=== PATIENT | female | born 1955 | race Caucasian/White ===

== ENCOUNTER → 2016-07-07 | Outpatient (CLI) | payer OTHER ==
[~2016-07-07] MED LIST: ALPR.25 PO; B COTAB7 PO; B12-1CHW CHEW; BENZ100 PO; BIOT1SUB SL; BIOT5000 PO; CALC600T25; CALC600T34 PO; CYCL1TAB29 PO; DICL1GEL TOPICAL; DICL50 PO; ESTRA PO; GUAISYP7; IBUPPOW25 XX; IPRA17I INH; NUCY50TA9 PO; ULTR50TA PO; VITA10007 PO; VITA100L SUCK-ON; [UNRECOGNIZED DRUG - OTHER]; [UNRECOGNIZED DRUG - OTHER]
[2016-07-07 12:40] LABS: AUTOMATED NEUTROPHIL # 5.9 TH/MM3 (1.8-7.7); BASOPHIL % 0.4 % (0.0-2.0); EOSINOPHIL # 0.1 TH/MM3 (0-0.4); EOSINOPHIL % 0.7 % (0.0-4.0); HEMATOCRIT 35.3 % (35.0-46.0); HEMO FLAGS DIFF FINAL; LYMPH % 27.3 % (9.0-44.0); LYMPHOCYTE # 2.5 TH/MM3 (1.0-4.8); MEAN CELL VOLUME 86.8 FL (80.0-100.0); MEAN CORPUSCULAR HEMOGLOBIN 29.3 PG (27.0-34.0); MEAN CORPUSCULAR HGB CONC 33.8 % (32.0-36.0); NEUT % 64.6 % (16.0-70.0); PLATELET COUNT 318 TH/MM3 (150-450); RED BLOOD COUNT 4.07 MIL/MM3 (4.00-5.30); WHITE BLOOD COUNT 9.1 TH/MM3 (4.0-11.0)
[2016-07-07 12:41] LABS: APTT (PATIENT) 24.3 SEC (24.3-30.1); INTERNATIONAL NORMALIZED RATIO 0.9 RATIO; PROTHROMBIN TIME - PATIENT 10.1 SEC (9.8-11.6)
== END ==
LOC: CLAB 12:02
PROVIDERS: ATTEND Internal Medicine
DX: J18.9 Pneumonia, unspecified organism (principal); J90 Pleural effusion, not elsewhere classified; Z79.01 Long term (current) use of anticoagulants
CPT/HCPCS: 36415; 85025; 85610; 85730

== ENCOUNTER 2016-07-10 09:26 | Day surgery (SDC) | payer OTHER ==
--- NOTE | 2016-07-09 12:38 | MB ---
cc: MAHAMED JOHNSON RYAN R. M.D. WHITE, R. STEVEN DATE OF CONSULTATION 07/07/2016 REASON FOR CONSULTATION For diagnostic and therapeutic thoracentesis being scheduled at [facility]. HISTORY Ms. 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 She subsequently underwent chemotherapy with Dr. Johnson and CT scans have revealed no evidence of recurrent malignancy but she has a residual moderate effusion in that right lung. She is complaining of shortness of breath, although she has no chest pain, no hemoptysis, no fever. Appetite is good and there has been no weight loss. In light of the persistence of fluid, we are going to schedule that to be drained diagnostically and therapeutically. PAST MEDICAL HISTORY 1. Hysterectomy. 2. Cervical DJD. 3. No prior cardiovascular history. 4. COPD. 5. Former smoker 50 pack-years. MEDICATIONS 1. Nicotine patch. 2. Estrogen. 3. Calcium. 4. Vitamin D. 5. Biotin. 6. Zantac p.r.n. She is on no anticoagulants. SOCIAL HISTORY , living with her . Smoking noted to be 50 pack-years; quit smoking at the time of her surgery. 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 Drinks an occasional vodka. ALLERGIES DOLOBID. MORPHINE. CODEINE. DILAUDID. All of them cause hives. REVIEW OF SYSTEMS Other than that noted above, no swelling in her legs. No gastrointestinal symptoms. No diarrhea or reflux. She does get relief when she uses Atrovent inhalation. PHYSICAL EXAMINATION VITAL SIGNS: 96, 130/80, pulse 76, respiratory rate 18. Oxygen saturation 96% on room air. HEENT: Sclerae anicteric. Pharynx is clear. NECK: Neck veins are flat. No adenopathy in the neck or supraclavicular region. CHEST: Surgical scar is healing well. A little dullness to percussion on the right with decreased breath sounds, otherwise no wheezing or congestion. HEART: Regular heart rhythm. No harsh murmur. EXTREMITIES: No edema or cyanosis. ASSESSMENT AND PLAN Ms. Prather has a residual persistent effusion on the right after surgery last December for adenocarcinoma. She is also experiencing shortness of breath. We will schedule her for an ultrasound-guided thoracentesis, send fluid for analysis and hopefully by draining this fluid she will have less dyspnea as well. R. MD CHARLEEN Fragoso/JASON /11:49 AM /12:28 PM
[~2016-07-10 09:26] MED LIST changes: -B12-1CHW CHEW; -BIOT1SUB SL; -CALC600T25; -CYCL1TAB29 PO; -DICL1GEL TOPICAL; -VITA10007 PO
[2016-07-10 10:13] VITALS: BP 156/96; PULSE 84; RESP 22; TEMP 98; O2SAT 98
[2016-07-10 10:35] VITALS: BP 141/79; PULSE 79; RESP 20; O2SAT 98
[2016-07-10 10:50] VITALS: BP 147/89; PULSE 80; RESP 20; O2SAT 96
--- NOTE | 2016-07-10 11:02 | RADRPT ---
EXAM DATE/TIME: 07/10/2016 10:46 [facility] COMPARISON: No previous studies available for comparison. INDICATIONS : Post right thoracentesis. MEDICAL HISTORY : Carcinoma, lung. A-fib. Smoker. SURGICAL HISTORY : Port placement. ENCOUNTER: Initial ACUITY: 1 day PAIN SCORE: 0/10 LOCATION: Right chest FINDINGS: Status post right thoracentesis. No evidence of pneumothorax. There is some focal consolidation the r ight lung base. The left lung is clear. The heart size is within normal limits. Right central line in place. CONCLUSION: Status post right thoracentesis. No pneumothorax. Juventino Johnston MD on July 10, 2016 at 11:00 Board Certified Radiologist. This report was verified electronically.
--- NOTE | 2016-07-10 11:56 | RADRPT ---
EXAM DATE/TIME: 07/10/2016 10:12 [facility] COMPARISON: No previous studies available for comparison. EXTERNAL COMPARISON: [facility], CT THORAX, W CONTRAST, Jul [address] THORAX, W/O CONTRAST, April 02, 2016. C HEST- PA & LAT, February 06, 2016. CHEST- PA & LAT, October 22, 2015. [facility] - CT THORAX, W & W/O CONTRAST, October 24, 2015. INDICATIONS : Right pleural effusion. MEDICAL HISTORY : Atrial fibrillation. Metestatic right lung cancer. SURGICAL HISTORY : Hysterectomy. Appendectomy. Tonsillectomy. Bilateral oophorectomy. Right lung lobectomy. ENCOUNTER: Initial ACUITY: 1 day PAIN SCORE: 0/10 LOCATION: Right chest FLUID: Total volume of 300 cc of clear, yellow fluid was removed. Fluid was sent to lab for ordered studies. TECHNIQUE: 1. Ultrasound guidance for thoracentesis. 2. Thoracentesis. The risks, benefits, and alternatives to ultrasound guided thoracentesis were explained to the patien t in lay simple terms, including the risk of bleeding and infection. Written and verbal informed con sent was obtained. Appropriate area for thoracentesis was marked under ultrasound guidance with the patient in the uprig ht position. Overlying skin was prepped and draped in the usual sterile fashion and with local anest hetic, a dermatotomy was made with an 11 blade scalpel. A 6 Chadian thoracentesis catheter was placed in the pleural space and fluid was removed. Catheter was then removed and a sterile dressing applie d. There were no immediate complications. The patient tolerated the procedure well and the left the ultrasound suite in stable condition. Chest radiograph is to be obtained. CONCLUSION: Uncomplicated ultrasound guided thoracentesis. Oswald Rodriguez MD FACR on July 10, 2016 at 11:54 Board Certified Radiologist. This report was verified electronically.
[2016-07-10 12:06] LABS: TOTAL PROTEIN,PLEURAL FLUID 3.5 GM/DL
[2016-07-10 13:50] LABS: PLEURAL FLUID LYMPHS 64 %
== END 2016-07-10 11:30 | disposition home or self-care (01) ==
LOC: HRIP 09:26 → HRAD 09:26
PROVIDERS: ATTEND Internal Medicine
DX: J90 Pleural effusion, not elsewhere classified (principal); I48.91 Unspecified atrial fibrillation; Z85.118 Personal history of other malignant neoplasm of bronchus and lung
CPT/HCPCS: 32555; 71010; 82945; 83615; 84157; 87015; 87070; 87116; 87205; 87206; 89051; C1729

== ENCOUNTER → 2016-08-24 | Outpatient (CLI) | payer OTHER ==
[~2016-08-24] MED LIST changes: +B12-1CHW CHEW; +BIOT1SUB SL; +CALC600T25; +CYCL1TAB29 PO; +DICL1GEL TOPICAL; +VITA10007 PO
[2016-08-24 08:50] LABS: AUTOMATED NEUTROPHIL # 2.9 TH/MM3 (1.8-7.7); BASOPHIL # 0.1 TH/MM3 (0-0.2); BASOPHIL % 0.8 % (0.0-2.0); EOSINOPHIL # 0.2 TH/MM3 (0-0.4); EOSINOPHIL % 3.1 % (0.0-4.0); HEMATOCRIT 36.7 % (35.0-46.0); HEMO FLAGS DIFF FINAL; LYMPH % 43.3 % (9.0-44.0); LYMPHOCYTE # 2.8 TH/MM3 (1.0-4.8); MEAN CELL VOLUME 86.9 FL (80.0-100.0); MEAN CORPUSCULAR HEMOGLOBIN 29.8 PG (27.0-34.0); MEAN CORPUSCULAR HGB CONC 34.3 % (32.0-36.0); MONO % 8.1 % (0.0-8.0); NEUT % 44.7 % (16.0-70.0); PLATELET COUNT 318 TH/MM3 (150-450); RED BLOOD COUNT 4.22 MIL/MM3 (4.00-5.30); RED CELL DISTRIBUTION WIDTH 14.1 % (11.6-17.2); WHITE BLOOD COUNT 6.6 TH/MM3 (4.0-11.0)
[2016-08-24 09:03] LABS: APTT (PATIENT) 25.3 SEC (24.3-30.1); PROTHROMBIN TIME - PATIENT 10.6 SEC (9.8-11.6)
== END ==
LOC: CLAB 08:18
PROVIDERS: ATTEND Internal Medicine Hematology & Oncology
DX: C34.90 Malignant neoplasm of unspecified part of unspecified bronchus or lung (principal)
CPT/HCPCS: 36415; 85025; 85610; 85730

== ENCOUNTER 2016-08-25 06:07 | Day surgery (SDC) | payer OTHER ==
[~2016-08-25] VITALS: Ht 188 cm; Wt 83.2 kg
[~2016-08-25 06:07] MED LIST changes: -B12-1CHW CHEW; -BIOT1SUB SL; -CALC600T25; -CYCL1TAB29 PO; -DICL1GEL TOPICAL; -VITA10007 PO
[2016-08-25] MEDS ORDERED: CYCL1TAB29 PO (06:57)
[2016-08-25] MEDS ORDERED: IPRA17I INH (06:57)
[2016-08-25] MEDS ORDERED: ALPR.25 PO (06:57)
[2016-08-25] MEDS ORDERED: VITA10007 PO (06:57)
[2016-08-25] MEDS ORDERED: B12-1CHW CHEW (06:57)
[2016-08-25] MEDS ORDERED: DICL1GEL TOPICAL (06:57)
[2016-08-25] MEDS ORDERED: BIOT1SUB SL (06:57)
[2016-08-25] MEDS ORDERED: CALC600T25 (06:57)
[2016-08-25] MEDS ORDERED: NUCY50TA9 PO (06:57)
[2016-08-25] MEDS ORDERED: ceFAZolin 2 GM PREMIX 50 ML - implanted port removal IV SCH (07:00)
[2016-08-25] MEDS ORDERED: SODIUM CHLORIDE 0.9% 1000 ML IV SCH (07:00)
[2016-08-25] MEDS ORDERED: LIDOCAINE 1%/EPINEPHrine 1:100,000 SOLN 20 ML VIAL ONE (07:59)
[2016-08-25] MEDS ORDERED: LORazepam 2 MG/ML VIAL ONE (08:15)
--- NOTE | 2016-08-25 08:31 | PD.RAD ---
Post Procedure Progress Note Pre Procedure Diagnosis: (1) Right thoracotomy, middle and lower lobe resection en bloc with pericardium and left atrial margin, Post Procedure Diagnosis: (1) Right thoracotomy, middle and lower lobe resection en bloc with pericardium and left atrial margin, Procedure Date: Aug 25, 2016 Supervising Radiologist: Marko Lowery Proceduralist/Assist: Melinda Arredondo, RT(R)(CV), Aditi Purvis, RT(R) Anesthesia: Local, Conscious Sedation Plan of Activity Patient to Unit: ROPU Patient Condition: Good See PACS Report for procedural detail/treatment Central Venous Access Device Procedure 1 Right Internal Jugular Infusaport Removal single lumen Marko Lowery MD Aug 25, 2016 08:31
[2016-08-25 08:35] VITALS: BP 155/74; PULSE 69; RESP 18; TEMP 97.7; O2SAT 96
[2016-08-25 08:45] VITALS: BP 132/70; PULSE 69; RESP 18; O2SAT 98
[2016-08-25 09:35] VITALS: BP 142/75; PULSE 69; RESP 16; O2SAT 96
--- NOTE | 2016-08-25 10:23 | RADRPT ---
EXAM DATE/TIME: 08/25/2016 00:00 [facility] COMPARISON: No previous studies available for comparison. INDICATIONS : Patient with history of lung cancer. Chemotherapy finished. MEDICAL HISTORY : 1. Lung ca 2. Right pleural effusion 3. right hilar mass 4. COPD SURGICAL HISTORY : 1. right port placed 2. thorocotomy 3. Hysterectomy 4. Appendectomy ENCOUNTER: Initial ACUITY: 1 week PAIN SCORE: 0/10 1.) 1 mg lorazepam (Ativan) IV Prophylactic antibiotics were administered with appropriate pre-procedure timing. Vancomycin within 2 hrs of procedure, Ancef (or alternative) within 1 hr of procedure. PROCEDURE : 1. Removal of Ozwdpz-r-pkyj. 2. Conscious sedation with continuous EKG and oximetry monitoring. The risk, benefits and potential complications of Etywcj-p-Kzmd removal were discussed. Written conse nt was obtained. The patient was placed supine. The chest wall was prepped in sterile fashion. Full sterile techniqu e was used, including cap, mask, sterile gloves and gown, and a large sterile sheet. Hand hygiene an d 2% chlorhexidine and/or Betadine/alcohol prep was utilized per protocol for cutaneous antisepsis. The skin and subcutaneous tissues were infiltrated with local anesthetic solution. A small incision w as made, the subcutaneous pocket was opened. The port was dissected from the subcutaneous tissues and easily removed in one piece. The pocket incision was closed with subcuticular Vicryl suture. Steri -Strips were applied. Conscious sedation was performed with the prescribed dosages and duration as above in the presence of an independent trained radiology nurse to assist in the monitoring of the patient. EKG and oximetry remained stable throughout the procedure. The patient tolerated the procedure well and there were no complications. The patient was sent to post anesthesia recovery in stable condition. CONCLUSION: Uncomplicated port removal as above. Marko Lowery MD on August 25, 2016 at 10:21 Board Certified Radiologist. This report was verified electronically.
== END 2016-08-25 09:54 | disposition home or self-care (01) ==
LOC: HROP 06:07 → HRIP 06:17 → HROP 09:54
PROVIDERS: ATTEND Internal Medicine Hematology & Oncology
DX: Z45.2 Encounter for adjustment and management of vascular access device (principal); C34.91 Malignant neoplasm of unspecified part of right bronchus or lung
CPT/HCPCS: 36590; J2060

== ENCOUNTER 2017-04-22 12:55 | Day surgery (SDC) | payer OTHER ==
[~2017-04-22 12:55] MED LIST changes: +B12-1CHW CHEW; +BIOT1SUB SL; +CALC600T5; +CYCL10TA PO; +DICL1GEL TOPICAL; +NUCY50TA10 PO; +VITA10007 PO
[2017-04-22] MEDS ORDERED: IOHEXOL 300 MG/ML 50 ML BTL (for RAD DIAG) OTHER ONE (12:56)
[2017-04-22 13:10] VITALS: BP 171/105; PULSE 81; RESP 20; TEMP 97.5; O2SAT 95
[2017-04-22] MEDS ORDERED: BENZ100 PO (13:32)
[2017-04-22] MEDS ORDERED: CALC1TAB87 PO (13:32)
[2017-04-22] MEDS ORDERED: EEMTTAB2 PO (13:32)
[2017-04-22] MEDS ORDERED: GUAISYP5 PO (13:32)
[2017-04-22] MEDS ORDERED: TRAM50TA PO (13:32)
[2017-04-22] MEDS ORDERED: CYAN100025 SL (13:32)
[2017-04-22] MEDS ORDERED: VITA500T83 PO (13:32)
[2017-04-22] MEDS ORDERED: OCUVTAB PO (13:32)
[2017-04-22] MEDS ORDERED: VITACAP7 PO (13:32)
[2017-04-22] MEDS ORDERED: IBUP1TAB7 PO (13:32)
[2017-04-22] MEDS ORDERED: RANI1TAB7 PO (13:32)
[2017-04-22] MEDS ORDERED: BIOTCAP PO (13:32)
[2017-04-22] MEDS ORDERED: TRIAMCINOLONE ACETONIDE 40 MG/ML VIAL ONE (13:34)
[2017-04-22 14:12] VITALS: BP 155/97; PULSE 66; RESP 18; TEMP 97.7; O2SAT 97
--- NOTE | 2017-04-22 16:20 | RADRPT ---
EXAM DATE/TIME: 04/22/2017 13:29 [facility] COMPARISON: No previous studies available for comparison. INDICATIONS : Patient with lumbar radiculopathy in need of nerve root injection. MEDICAL HISTORY : A-Fib, COPD, Heart valve disease, Right lung adenocarcinoma, Pleural effusion, Pneumothorax SURGICAL HISTORY : Right thoracotomy and right middle and lower lobe resection, Chest tube placement, Right thoracentesi s ENCOUNTER: Initial ACUITY: >1 year PAIN SCORE: 7/10 LOCATION: Left buttock FLUORO TIME: 3.8 minutes IMAGE SERIES: 2 CONTRAST: 1 cc Omnipaque (iohexol) 300 ACCESS LEVEL: Left L5 MEDICATIONS: 1.) 1 cc triamcinolone (Kenalog) IA 2.) 1 cc Lidocaine IA RESPONSE: Pre procedure pain level was 7/10. Post procedure pain level was 3/10. PROCEDURE : 1. Fluoroscopically guided nerve root injection. The risks, benefits and alternatives to the procedure were explained and verbal and written consent w as obtained. The site was prepped in sterile fashion. Full sterile technique was used, including ca p, mask, sterile gloves and gown and a large sterile sheet. Hand hygiene and 2% chlorhexidine and/or betadine/alcohol prep was utilized per protocol for cutaneous antisepsis. The skin and subcutaneous tissues were infiltrated with local anesthetic solution. With fluoroscopic guidance the targeted nerve root was localized and positive contrast was injected t o confirm epidural spread. Following this the prescribed medication was injected surrounding the ner ve root sleeve. The patient's preprocedure pain and post procedure pain levels were recorded. CONCLUSION: Uncomplicated fluoroscopically guided nerve root injection as above. Scot Lovelace MD on April 22, 2017 at 16:18 Board Certified Radiologist. This report was verified electronically.
--- NOTE | 2017-04-22 16:21 | RADRPT ---
EXAM DATE/TIME: 04/22/2017 13:29 [facility] COMPARISON: No previous studies available for comparison. INDICATIONS : Patient with lumbar radiculopathy in need of nerve root injection. MEDICAL HISTORY : A-Fib, COPD, Heart valve disease, Right lung adenocarcinoma, Pleural effusion, Pneumothorax SURGICAL HISTORY : Right thoracotomy and right middle and lower lobe resection, Chest tube placement, Right thoracentesi s ENCOUNTER: Initial ACUITY: 1 year PAIN SCORE: 7/10 LOCATION: Left buttock FLUORO TIME: 3.8 minutes IMAGE SERIES: 2 CONTRAST: 1 cc Omnipaque (iohexol) 300 ACCESS LEVEL: Left S1 MEDICATIONS: 1.) 1 cc triamcinolone (Kenalog) IA 2.) 1 cc Lidocaine IA RESPONSE: Pre procedure pain level was 7/10. Post procedure pain level was 3/10. PROCEDURE : 1. Fluoroscopically guided nerve root injection. The risks, benefits and alternatives to the procedure were explained and verbal and written consent w as obtained. The site was prepped in sterile fashion. Full sterile technique was used, including ca p, mask, sterile gloves and gown and a large sterile sheet. Hand hygiene and 2% chlorhexidine and/or betadine/alcohol prep was utilized per protocol for cutaneous antisepsis. The skin and subcutaneous tissues were infiltrated with local anesthetic solution. With fluoroscopic guidance the targeted nerve root was localized and positive contrast was injected t o confirm epidural spread. Following this the prescribed medication was injected surrounding the ner ve root sleeve. The patient's preprocedure pain and post procedure pain levels were recorded. CONCLUSION: Uncomplicated fluoroscopically guided nerve root injection as above. Scot Lovelace MD on April 22, 2017 at 16:18 Board Certified Radiologist. This report was verified electronically.
== END 2017-04-22 15:00 | disposition home or self-care (01) ==
LOC: HROP 12:55 → HRIP 13:01 → HROP 15:00
PROVIDERS: ATTEND Radiology Body Imaging
DX: M54.16 Radiculopathy, lumbar region (principal); J44.9 Chronic obstructive pulmonary disease, unspecified; J90 Pleural effusion, not elsewhere classified; I48.91 Unspecified atrial fibrillation
CPT/HCPCS: 64483; 64484; J3301; Q9967

== ENCOUNTER → 2017-06-15 | Outpatient (CLI) | payer OTHER ==
[~2017-06-15] MED LIST changes: -B COTAB7 PO; -B12-1CHW CHEW; -BIOT1SUB SL; -BIOT5000 PO; +BIOTCAP PO; +CALC1TAB87 PO; -CALC600T34 PO; -CALC600T5; +CYAN100025 SL; -DICL1GEL TOPICAL; -DICL50 PO; +EEMTTAB2 PO; -ESTRA PO; +GUAISYP5 PO; -GUAISYP7; +IBUP1TAB7 PO; -IBUPPOW25 XX; -NUCY50TA9 PO; +OCUVTAB PO; +RANI1TAB7 PO; +TRAM50TA PO; -ULTR50TA PO; +UMEC1AER INH; -VITA10007 PO; -VITA100L SUCK-ON; +VITA500T83 PO; +VITACAP7 PO; -[UNRECOGNIZED DRUG - OTHER]; -[UNRECOGNIZED DRUG - OTHER]
[2017-06-15 10:41] LABS: BILIRUBIN, URINE NEG (NEG); BLOOD, URINE NEG (NEG); GLUCOSE,URINE NEG (NEG); KETONE, URINE NEG (NEG); NITRITE,URINE NEG (NEG); PH, URINE 6.5 (5.0-8.5); URINE COLOR YELLOW (YELLW/STRAW); URINE LEUKOCYTE ESTERASE NEG (NEG)
[2017-06-15 10:48] LABS: PROTHROMBIN TIME - PATIENT 9.8 SEC (9.8-11.6)
[2017-06-15 10:58] LABS: CALCIUM 9.8 MG/DL (8.5-10.1); CREATININE 0.74 MG/DL (0.50-1.00)
[2017-06-15 10:59] LABS: BASOPHIL % 0.5 % (0.0-2.0); EOSINOPHIL # 0.1 TH/MM3 (0-0.4); EOSINOPHIL % 1.3 % (0.0-4.0); HEMATOCRIT 36.5 % (35.0-46.0); HEMOGLOBIN 12.5 GM/DL (11.6-15.3); LYMPH % 34.5 % (9.0-44.0); LYMPHOCYTE # 3.2 TH/MM3 (1.0-4.8); MEAN CELL VOLUME 89.9 FL (80.0-100.0); MEAN CORPUSCULAR HEMOGLOBIN 30.8 PG (27.0-34.0); MEAN CORPUSCULAR HGB CONC 34.2 % (32.0-36.0); MONO % 9.1 % (0.0-8.0); MONOCYTE # 0.8 TH/MM3 (0-0.9); NEUT % 54.6 % (16.0-70.0); PLATELET COUNT 404 TH/MM3 (150-450); RED BLOOD COUNT 4.06 MIL/MM3 (4.00-5.30); RED CELL DISTRIBUTION WIDTH 13.7 % (11.6-17.2); WHITE BLOOD COUNT 9.2 TH/MM3 (4.0-11.0)
--- NOTE | 2017-06-16 00:15 | EKG ---
Date Performed: 06/15/2017 Time Performed: 10:17:34 PTAGE: 62 years EKG: Sinus rhythm ST junctional depression is nonspecific Borderline ECG PREVIOUS TRACING : 11/26/2015 09.05 Since the prior tracing, there has been no significant richards DOCTOR: Leonel Chapman Interpretating Date/Time 06/16/2017 00:14:16
== END ==
LOC: CPRE 09:56
PROVIDERS: ATTEND Orthopaedic Surgery Orthopaedic Surgery of the Spine
DX: Z01.812 Encounter for preprocedural laboratory examination (principal); Z01.810 Encounter for preprocedural cardiovascular examination; M48.08 Spinal stenosis, sacral and sacrococcygeal region; M96.1 Postlaminectomy syndrome, not elsewhere classified
CPT/HCPCS: 36415; 80048; 81001; 85025; 85610; 85730; 93005

== ENCOUNTER 2017-06-29 07:19 | Inpatient (IN) | payer OTHER ==
[~2017-06-29] VITALS: Ht 182.9 cm; Wt 86.3 kg
[2017-06-29] MEDS ORDERED: CHLORHEXIDINE GLUCONATE 2 % 1 PACK (2 CLOTHS) TOPICAL PRN (07:45)
[2017-06-29] MEDS ORDERED: VANCOMYCIN 1000 MG/NS 250 ML (for <70 kg) IV SCH ×2 (07:45)
[2017-06-29] MEDS ORDERED: POVIDONE IODINE 5% (ANTISEPSIS KIT) 4 APPLICATIONS EACH NARE PRN (07:45)
[2017-06-29] MEDS ORDERED: SODIUM CHLORID 0.9% 500 ML IV PRN (07:45)
[2017-06-29] MEDS ORDERED: LACTATED RINGER'S 1000 ML IV PRN (07:45)
[2017-06-29] MEDS ORDERED: ceFAZolin 2 GM PREMIX 50 ML IV SCH (07:45)
[2017-06-29] MEDS ORDERED: METOPROLOL TARTRATE 25 MG TAB PO PRN (07:45)
[2017-06-29] MEDS ORDERED: CHLORHEXIDINE GLUCONATE 4% SOLN 120 ML BTL TOPICAL SCH (07:45)
[2017-06-29] MEDS ORDERED: LISI20TA3 PO (08:03)
[2017-06-29] MEDS ORDERED: GENTAMICIN SULFATE 80 MG/2 ML VIAL ONE (10:19)
[2017-06-29] MEDS ORDERED: ROCURONIUM INJ 50 MG/5 ML SYRINGE IV PUSH ONE (12:00)
[2017-06-29] MEDS ORDERED: DEXAMETHASONE SOD PHOS 4 MG/ML VIAL IV ONE (12:00)
[2017-06-29] MEDS ORDERED: PROPOFOL 200 MG/20 ML AMP IV ONE (12:00)
[2017-06-29] MEDS ORDERED: ePHEDrine/NS 25 MG/5 ML SYRINGE IV ONE (12:00)
[2017-06-29] MEDS ORDERED: ONDANSETRON HCL 4 MG/2 ML VIAL IV ONE (12:00)
[2017-06-29] MEDS ORDERED: LIDOCAINE HCL 1% PF 5 ML SYRINGE OTHER ONE (12:00)
[2017-06-29] MEDS ORDERED: LACTATED RINGER'S 1000 ML INJ 3,000 ML IV ONE (12:00)
[2017-06-29] MEDS ORDERED: PHENYLEPH/NS 1000 MCG/10 ML SYR IV ONE (12:00)
[2017-06-29] MEDS ORDERED: traMADol HCL 50 MG TAB PO PRN (12:30)
[2017-06-29] MEDS ORDERED: TAPENTADOL 50 MG PO PRN (12:30)
[2017-06-29] MEDS ORDERED: BISACODYL 10 MG SUPP RECTAL PRN (12:30)
[2017-06-29] MEDS ORDERED: TRAM50 PO (12:35)
[2017-06-29] MEDS ORDERED: ACETAMINOPHEN 1000 MG/100 ML 100 ML IV ONE (13:16)
[2017-06-29] MEDS ORDERED: VANCOMYCIN HCL 1000 MG VIAL ONE (15:27)
--- NOTE | 2017-06-29 15:49 | PD.OP ---
cc: Patrick Polo. Operative Report Date of Surgery: Jun 29, 2017 Preoperative Diagnosis: Lumbar spinal stenosis L4 5 and L5-S1. Degenerative disc disease lumbar spine. Lumbar instability. Left greater than right lumbosacral radiculopathy Postoperative Diagnosis: Same Procedure: Bilateral lumbar laminectomy L4 5 from the left with bilateral lateral recess decompression. Subtotal facet resection left L5-S1 with foraminal decompression exiting left L5 nerve root and lumbar laminectomy with decompression crossing left S1 nerve root and Posterior spinal fusion L4 to S1, lateral transverse process technique. Posterior spinal segmental his dictation, L4 to S1. Posterior lateral interbody fusion, L4 5 and L5-S1. Placement of interbody cages L4 5 and L5-S1. Major bone grafting of the lumbar spine Anesthesia: Gen. Surgeon: Patrick Polo Mobility Architect(s): ANA MARÍA Crawley Operation and Findings: EBL: 150 ml NOTE: Alexandra Crawley PA-C was present for the entire surgical procedure as my pediatric medical assistant. In my medical opinion her skill and care was necessary for proper management of this patient INDICATIONS: This patient is a 62-year-old female with significant bilateral leg pain, left greater than right. Investigative studies shows evidence of severe spinal stenosis at L4 5 and severe foraminal stenosis left L5-S1. Significant instability will be created with subtotal facet resection for purposes of decompressing the exiting left L5 nerve root. There is significant discogenic changes at the L4 5 level. The patient presents for decompression and fusion at both levels INSTRUMENTATION: Spine way PROCEDURE: The patient brought to the operating room and anesthetized the supine position. The patient positioned prone on the Clark frame on the Dionisio table. All pressure points are protected. The back was scrubbed with alcohol followed by Hibiclens followed by ChloraPrep and draped sterilely and antibiotics were given within a routine time window. A timeout was done. Lateral radiographic images used to identify the proper level for the procedure. Compared care for the preoperative studies. Skin markings were made anticipating surgical treatment. A left paramedian incision was made. The lamina and facet joint was exposed. We used a dilating retractor which was positioned over this region. The microscope was rolled into the field for visualization. A high-speed bur was used to take the lamina down and doing a subtotal facet resection. A bilateral laminectomy from the left side was accomplished with a bilateral lateral recess decompression. The exiting and crossing nerve roots were completely decompressed. A total discectomy was accomplished. The disc space was prepared. All cartilaginous material from the disc space was removed. A combination of demineralized bone matrix and Nucel stem cells were mixed together on the back table.. These were injected into the disc space. The cage was then placed according to mash processing operator's recommendation and deployed. Position was satisfactory. Additional bone graft was placed into the disc space. We moved to the L5-S1 level. A separate fascial incision was made. A dilating system was placed down to the interlaminar space and held provisionally to the side of the table. The microscope was brought back into the field. A high- speed bur under the microscope was used to perform a left-sided laminectomy from that side with a subtotal facet resection decompressing the exiting L5 and crossing S1 nerve roots. There was severe nerve root compression upon the left L5 nerve root in the foramen disc herniation into the foramen. A lateral recess decompression bilaterally was accomplished using straight and angled Kerrison punches. A subtotal facet resection section was accomplished The crossing and exiting nerve roots were completely decompressed. A total discectomy was accomplished. All cartilage was curetted. A combination of demineralized bone matrix and Nucel stem cells were injected into the disc space followed by placement of a Stax cage which was deployed and positioned according to mash processing operator's recommendation. The outer edge of the facet joint was identified and prepared. Under fluoroscopic images, a bur was used to gain entrance into the pedicle followed by placement of a blunt probe, an awl and placement of proper length screws bilaterally at L4, L5 and S1. Each screw was charged with electric current there are no abnormal potentials registered in either lower extremity. Percutaneous rods were utilized. A proper length fina was fitted and attached and tightened according to mash processing operator's recommendation. The wound was irrigated copiously. Bone grafting was placed along the lateral gutter in the region of the transverse process across this level. This was closed in layers with #1 Vicryl, 2-0 Vicryl and running intradermal 3-0 Vicryl followed by Steri-Strips and benzoin. On the contralateral side a separate exposure was made. The outer edge of the facet joints were identified. A bur was used to gain entrance into the pedicle followed by placement of a probe and proper length screws. Each screw was charged with electric current and no abnormal potentials registered in either lower extremity. The wound was irrigated copiously. Bone graft placed along the transverse process across this level. It was closed in layers using #1 Vicryl, 2-0 Vicryl and running intradermal 3-0 Vicryl followed by Steri-Strips and benzoin. Intraoperative radiographs were obtained. No complication was appreciated. The patient had a sterile dressing applied. The patient was awakened and taken to recovery room in satisfactory condition. FINDINGS: There was severe spinal stenosis at the L4 5 level. There was severe foraminal stenosis to left L5-S1. At the L5-S1 level was very unstable. There was a disc herniation into the foramen to the left L5-S1 contributing to left L5 nerve root compromise. No complication was appreciated. Patrick Polo MD Jun 29, 2017 15:48
[2017-06-29] MEDS ORDERED: DO NOT ADM ANY ANTICOAGULANT DRUGS PRN (16:20)
[2017-06-29] MEDS ORDERED: MEPERIDINE HCL 25 MG/ML VIAL ONE (17:01)
--- NOTE | 2017-06-29 17:06 | RADRPT ---
EXAM DATE/TIME: 06/29/2017 15:29 [facility] COMPARISON: No previous studies available for comparison. INDICATIONS : L4-5, L5-S1 Fusion. MEDICAL HISTORY : Carcinoma, lung. Smoker. A-fib. SURGICAL HISTORY : Hysterectomy. Tonsillectomy. ENCOUNTER: Initial ACUITY: 1 day PAIN SCORE: Non-responsive. LOCATION: Lumbar spine. FINDINGS: Two view, intraoperative examination was performed. Targeted views of the lumbosacral junction show 3 level transpedicular posterior fixation bilaterally from L4-S1 with intervertebral disc prostheses. Hardware is all intact. Vertebral body heights are maintained without fracture.. CONCLUSION: Appropriate postoperative appearance of the lumbosacral junction status post 3 level transpedicu lar fixation from L4-S1. Douglas Bartlett MD on June 29, 2017 at 17:03 Board Certified Radiologist. This report was verified electronically.
[2017-06-29] MEDS ORDERED: ALUMINUM/MAGNESIUM/SIMETH 30 ML CUP PO PRN (17:30)
[2017-06-29] MEDS ORDERED: CYCLOBENZAPRINE HCL 10 MG TAB PO PRN (17:30)
[2017-06-29] MEDS ORDERED: ONDANSETRON HCL 4 MG/2 ML VIAL IV PUSH PRN (17:30)
[2017-06-29] MEDS ORDERED: LACTATED RINGER'S 1000 ML INJ 1,000 ML IV SCH (17:30)
[2017-06-29] MEDS ORDERED: ALPRAZolam 0.25 MG TAB PO PRN (17:30)
[2017-06-29] MEDS ORDERED: BENZONATATE 100 MG CAP PO PRN (17:30)
[2017-06-29] MEDS ORDERED: RESP: IPRATROPIUM 0.5 MG/2.5 ML NEB INH PRN (18:00)
[2017-06-29] MEDS ORDERED: Post-op Orders (for Pharmacy) XX ONE (18:00)
[2017-06-29] MEDS ORDERED: KETOROLAC TROMETHAMINE 30 MG/ML (IVP) VIAL ONE (18:41)
[2017-06-29] MEDS ORDERED: KETOROLAC TROMETHAMINE 30 MG/ML (IVP) VIAL IV PUSH ONE (20:00)
[2017-06-29 20:30] VITALS: BP 102/57; PULSE 75; RESP 17; TEMP 96.8; O2SAT 97
[2017-06-29] MEDS ORDERED: RANITIDINE 150 MG PO SCH (21:00)
[2017-06-29] MEDS ORDERED: ZOLPIDEM TARTRATE 5 MG TAB PO PRN (21:00)
[2017-06-29] MEDS ORDERED: NON-FORMULARY DRUG (Lisinopril-Hctz 1 TAB) PO SCH (21:00)
[2017-06-29] MEDS: FAMOTIDINE 20 MG TAB PO SCH (21:52)
[2017-06-30 00:05] VITALS: BP 140/65; PULSE 79; RESP 18; TEMP 96.9; O2SAT 94
[2017-06-30] MEDS: traMADol HCL 50 MG TAB PO PRN ×2 (02:32→06:26)
[2017-06-30 04:05] VITALS: BP 105/58; PULSE 79; RESP 18; TEMP 97; O2SAT 98
[2017-06-30 08:00] VITALS: BP 101/53; PULSE 79; RESP 17; TEMP 96.1; O2SAT 99
[2017-06-30] MEDS: FAMOTIDINE 20 MG TAB PO SCH (08:42)
[2017-06-30] MEDS ORDERED: ESTROGEN ESTERIF/ME TESTOST 0.625 MG/1.25 MG TAB PO SCH (09:00)
[2017-06-30] MEDS ORDERED: HYDROCHLOROTHIAZIDE 25 MG TAB PO SCH (09:00)
[2017-06-30] MEDS ORDERED: UMECLIDINIUM 62.5 MCG/VILANTEROL 25 MCG INHALER INH SCH (09:00)
[2017-06-30] MEDS ORDERED: LISINOPRIL 20 MG TAB PO SCH (09:00)
[2017-06-30 10:16] LABS: HEMATOCRIT 30.7 % (35.0-46.0); HEMOGLOBIN 10.6 GM/DL (11.6-15.3)
[2017-06-30 12:00] VITALS: BP 108/59; PULSE 77; RESP 17; TEMP 95.9; O2SAT 98
[2017-06-30] MEDS ORDERED: WALKER WHEELS/F1 MIS (13:25)
[2017-06-30] MEDS ORDERED: COMMODE 3-IN-11 MIS (13:26)
--- NOTE | 2017-06-30 13:26 | HHI.DCPOC ---
Discharge Care Plan Diagnosis: (1) Lumbar spinal stenosis (2) Lumbar spine instability Your Health Problems Are: Difficulty with ADL Incision/Drains Inflammation Goals to Promote Your Health * To prevent worsening of your condition and complications * To maintain your health at the optimal level Directions to Meet Your Goals Take your medications as prescribed Follow your dietary instruction Follow activity as directed Keep your appointments as scheduled Take your immunizations and boosters as scheduled If your symptoms worsen call your PCP, if no PCP go to Urgent Care Center or Emergency Room Smoking is Dangerous to Your Health. Avoid second hand smoke Call the 24-hour hour crisis hotline for domestic abuse at Erin Thomas Jun 30, 2017 13:26
--- NOTE | 2017-06-30 13:27 | HHI.DS ---
Discharge Summary Admission Date Jun 29, 2017 at 07:19 Discharge Date: Jun 30, 2017 Admitting Diagnosis see below Diagnosis: (1) Lumbar spinal stenosis Diagnosis: Principal ICD Codes: M48.061 - Spinal stenosis, lumbar region without neurogenic claudication (2) Lumbar spine instability Diagnosis: Principal ICD Codes: M53.2X6 - Spinal instabilities, lumbar region Procedures Bilateral Lami L45 from left, Lami L5S1, subtotal facet resections, Posterior fusion L4-S1, bone graft. Brief History This is a 62 year old female patient CBC/BMP: 06/30/17 0820 Significant Findings Laboratory Tests Test 06/30/17 08:20 Hemoglobin 10.6 GM/DL (11.6-15.3) Hematocrit 30.7 % (35.0-46.0) Hospital Course Surgical treatment was performed on the day of admission without complication. She recovered well in PACU and was transferred to the orthopaedic floor. Pain was controlled with IV and oral medications. She was compliant with her lumbar brace and all precautions. She made appropriate progress with physical therapy. After 1 day she was found to be stable and discharged home with home health care. She politely declined home health care as she felt she had enough help at home. She was encouraged to pursue a high fiber diet for 48 hours, to ice her lumbar spine for 10-14 days postop, and to continue her lumbar brace pelota maker when out of bed for 10 weeks. She was given a prescription for Tramadol 50mg. Pt Condition on Discharge: Stable Discharge Disposition: Discharge Home Discharge Instructions Diet Instructions: As Tolerated, No Restrictions, High Fiber Diet Activities You Can Perform: See Additionl Instruction Activities to Avoid: Strenuous Activity Additional Activity Instruc.: oob with brace New Medications: Commode 3-in-1 (Commode 3-in-1) 1 Mis Mis EA .XX DIRECTED, #1 0 Refills Walker with Front Wheels (Walker with Front Wheels) 1 Mis Mis EA .XX DIRECTED, #1 0 Refills Tramadol (Ultram) 50 Mg Tab 50 MG PO Q4H PRN for Pain, #50 TAB Continued Medications: Alprazolam (Xanax) 0.25 Mg Tab 0.25 MG PO BID PRN for ANXIETY, TAB 0 Refills Ascorbic Acid ER (Vitamin C ER) 500 Mg Jordan 2000 MG PO BID for Nutritional Supplement, TAB 0 Refills B-Complex Vitamins (B Complex) 1 Cap 1 CAP PO DAILY for Nutritional Supplement, #30 CAP 0 Refills Benzonatate (Tessalon Perles) 100 Mg Cap 100 MG PO TID PRN for COUGH, CAP 0 Refills Biotin (Biotin) 5 Mg Cap 2 CAP PO DAILY for Nutritional Supplement, #1 BOTTLE 0 Refills Calcium Carbonate-Cholecalciferol (Calcium 600 with Vitamin D) 600-400 mg-Unit Tab 1 TAB PO DAILY for Calcium Supplement, TAB 0 Refills Cyanocobalamin (B-12) 1,000 Mcg Subl 1000 MCG SL BID for Nutritional Supplement, TAB.SL 0 Refills Cyclobenzaprine (Flexeril) 10 Mg Tab 10 MG PO HS PRN for SPASM, #90 TAB 0 Refills Estrogen,Dali/Me-Testosterone (Eemt Hs 0.625-1.25 mg Tablet) 0.625 Mg-1.25 Mg Tablet 1 TAB PO DAILY Guaifenesin-Codeine Liq (Guaiatussin AC Liq) 100-10 Mg/5 Ml Syrp 5 ML PO Q6H PRN for COUGH, ML Ibuprofen (Ibuprofen) 800 Mg Tab 800 MG PO TID PRN for PAIN SCALE 1 TO 10, TAB 0 Refills Ipratropium HFA 12.9 GM Inh (Atrovent HFA 12.9 GM Inh) 17 Mcg/Act Aer 2 PUFF INH BID PRN for SHORTNESS OF BREATH, #1 INHALER 0 Refills Lisinopril-Hctz (Lisinopril-Hctz) 20-25 Mg Tab 1 TAB PO BID for Blood Pressure Management, #30 TAB 0 Refills Ranitidine (Ranitidine Maximum Strength) 150 Mg Tab 150 MG PO BID, TAB 0 Refills Tapentadol (Nucynta) 50 Mg Tab 50 MG PO Q4H PRN for PAIN, TAB 0 Refills Tramadol (Tramadol) 50 Mg Tab 50 MG PO Q6H PRN for PAIN, TAB 0 Refills Umeclidinium-Vilanterol Inh (Anoro Ellipta Inh) 62.5-25 Mcg/Act Aero 1 PUFF INH DAILY for COPD, #1 INHALER 0 Refills Erin Thomas Jun 30, 2017 13:27
--- NOTE | 2017-06-30 13:30 | PD.ORT.PN ---
Subjective Subjective Remarks Doing well. Left leg pain 'much better'. Back very sore but 'do-able'. No other complaints. Eager to go home today. Urinating well. Passing gas. Objective Vitals Vital Signs Date Time Temp Pulse Resp B/P (MAP) Pulse Ox O2 Delivery O2 Flow Rate FiO2 06/30/17 08:00 96.1 79 17 101/53 (69) 99 06/30/17 04:05 97.0 79 18 105/58 (74) 98 06/30/17 00:05 96.9 79 18 140/65 (90) 94 06/29/17 20:30 96.8 75 17 102/57 (72) 97 06/29/17 20:00 97.5 82 16 115/66 (82) 100 Room Air 06/29/17 19:00 94 16 115/66 (82) 97 Room Air 06/29/17 18:30 94 16 111/61 (78) 98 Room Air 06/29/17 18:00 75 16 120/65 (83) 98 Room Air 06/29/17 17:30 73 16 122/66 (84) 98 Room Air 06/29/17 17:15 73 16 121/63 (82) 98 Nasal Cannula 2 06/29/17 17:00 80 16 129/73 (91) 97 Nasal Cannula 06/29/17 16:45 86 16 136/61 (86) 98 Nasal Cannula 06/29/17 16:30 96 16 103/57 (72) 98 Nasal Cannula 06/29/17 16:30 97.9 94 14 124/60 (81) 98 Nasal Cannula 2 I/O 06/29/17 06/29/17 06/29/17 06/30/17 06/30/17 06/30/17 07:00 15:00 23:00 07:00 15:00 23:00 Intake Total 2480 ml 360 ml Output Total 400 ml 1100 ml Balance 2080 ml -740 ml Intake Oral 480 ml 360 ml IV Total 2000 ml Output Urine Total 250 ml 1100 ml Estimated Blood Loss 150 ml # Bowel Movements 0 Result Diagram: 06/30/17 0820 Procedures Bilateral Lami L45 from left, Lami L5S1, subtotal facet resections, Posterior fusion L4-S1, bone graft. Objective Remarks Sitting up in chair NAD at bedside L/S Brace in place, L/S dressing c/d/i with minimal drainage, mild warmth, no erythema +motor at, ehl, +sens, +nvi Neg homans bilat Assessment & Plan Ortho Post Op Day #: 1 Problem List: (1) Lumbar spinal stenosis ICD Codes: M48.061 - Spinal stenosis, lumbar region without neurogenic claudication Qualifiers: Qualified Codes: M48.062 - Spinal stenosis, lumbar region with neurogenic claudication (2) Lumbar spine instability ICD Codes: M53.2X6 - Spinal instabilities, lumbar region Assessment and Plan pod#1 s/p Bilat Lami L45 from left, Lami L5S1, Posterior fusion L4-S1 Doing well. Ortho stable. Pain controlled. Tramadol 50mg written. Ok to d/c home today. She declines HHC. Hold dressing changes unless saturated. WBAT. Lumbar brace when out of bed for 10 weeks. F/U in 2 weeks as scheduled. Erin Thomas Jun 30, 2017 13:30
[2017-06-30] MEDS ORDERED: DOCUSATE SODIUM 100 MG CAP PO SCH (21:00)
== END 2017-06-30 15:24 | disposition home or self-care (01) | DRG 460 ==
LOC: HSDI 07:19 → N06A 20:03
PROVIDERS: ADMIT Orthopaedic Surgery Orthopaedic Surgery of the Spine; ATTEND Orthopaedic Surgery Orthopaedic Surgery of the Spine
PROC: 0ST40ZZ Resection of Lumbosacral Disc, Open Approach (ICD-10-PCS; 2017-06-29)
PROC: 0SG30AJ Fusion of Lumbosacral Joint with Interbody Fusion Device, Posterior Approach, Anterior Column, Open Approach (ICD-10-PCS; 2017-06-29)
PROC: 01NB0ZZ Release Lumbar Nerve, Open Approach (ICD-10-PCS; 2017-06-29)
PROC: 0ST20ZZ Resection of Lumbar Vertebral Disc, Open Approach (ICD-10-PCS; 2017-06-29)
PROC: 0SG00AJ Fusion of Lumbar Vertebral Joint with Interbody Fusion Device, Posterior Approach, Anterior Column, Open Approach (ICD-10-PCS; principal; 2017-06-29 12:04)
DX: M48.062 Spinal stenosis, lumbar region with neurogenic claudication (principal); F17.210 Nicotine dependence, cigarettes, uncomplicated; M53.2X6 Spinal instabilities, lumbar region; M48.07 Spinal stenosis, lumbosacral region; M51.36 Other intervertebral disc degeneration, lumbar region; M51.17 Intervertebral disc disorders with radiculopathy, lumbosacral region
CPT/HCPCS: 72100; 76000; 85014; 85018; 86850; 86900; 86901; 94150; C1713; J0131; J0690; J1100; J1580; J1885; J2175; J2370; J2405; J3010; J3370; J7050; J7120

== ENCOUNTER 2017-07-28 10:49 | Observation (INO) | payer OTHER ==
[~2017-07-28] VITALS: Ht 188 cm; Wt 84.0 kg
[2017-07-28] VITALS (9 sets, daily range): BP systolic 90–142; BP diastolic 55–84; PULSE 86–104; RESP 16–22; TEMP 97.7–99; O2SAT 96–100
[~2017-07-28 10:49] MED LIST changes: +COMMODE 3-IN-11 MIS; +LISI20TA3 PO; -OCUVTAB PO; +TRAM50 PO; +WALKER WHEELS/F1 MIS
[2017-07-28] MEDS ORDERED: SODIUM CHLORIDE 0.9% FLUSH 10 ML FLUSH IVF PRN (11:00)
[2017-07-28] MEDS ORDERED: RESP: ALBUTEROL 2.5 MG/IPRATROPIUM 0.5 MG NEB (SCH) INH ONE (11:00)
[2017-07-28] MEDS ORDERED: SODIUM CHLOR 0.9% 1000 ML INJ 1,000 ML IV ONE (11:15)
[2017-07-28] MEDS ORDERED: traMADol HCL 50 MG TAB PO ONE (11:30)
--- NOTE | 2017-07-28 11:51 | RADRPT ---
EXAM DATE/TIME: 07/28/2017 11:28 [facility] COMPARISON: CHEST SINGLE AP, December 27, 2015, 5:19. [facility] INDICATIONS : Sudden onset of shortness of breath yesterday. MEDICAL HISTORY : Atrial fibrillation. Metestatic right lung cancer. SURGICAL HISTORY : Hysterectomy. Appendectomy. Tonsillectomy. Bilateral oophorectomy. Right lung lobectomy. ENCOUNTER: Initial ACUITY: 2 days PAIN SCORE: 3/10 LOCATION: Bilateral chest FINDINGS: Postsurgical features of prior right lobectomy with small right pleural effusion and mediastinal shif t to the right. Left lung is clear. Cardiome stone contours are within normal limits. Bony thorax is intact. CONCLUSION: 1. Postsurgical features of prior right lobectomy with small right pleural effusion. 2. Left lung is clear. Rufino Swanson MD on July 28, 2017 at 11:48 Board Certified Radiologist. This report was verified electronically.
[2017-07-28 11:58] LABS: AUTOMATED NEUTROPHIL # 14.2 TH/MM3 (1.8-7.7); BASOPHIL # 0.1 TH/MM3 (0-0.2); BASOPHIL % 0.5 % (0.0-2.0); EOSINOPHIL # 0.1 TH/MM3 (0-0.4); EOSINOPHIL % 0.6 % (0.0-4.0); HEMATOCRIT 35.4 % (35.0-46.0); HEMOGLOBIN 11.7 GM/DL (11.6-15.3); LYMPH % 17.9 % (9.0-44.0); LYMPHOCYTE # 3.5 TH/MM3 (1.0-4.8); MEAN CELL VOLUME 88.7 FL (80.0-100.0); MEAN CORPUSCULAR HEMOGLOBIN 29.3 PG (27.0-34.0); MEAN CORPUSCULAR HGB CONC 33.1 % (32.0-36.0); MEAN PLATELET VOLUME 7.7 FL (7.0-11.0); MONO % 8.2 % (0.0-8.0); MONOCYTE # 1.6 TH/MM3 (0-0.9); NEUT % 72.8 % (16.0-70.0); PLATELET COUNT 565 TH/MM3 (150-450); RED BLOOD COUNT 3.99 MIL/MM3 (4.00-5.30); RED CELL DISTRIBUTION WIDTH 13.4 % (11.6-17.2); WHITE BLOOD COUNT 19.5 TH/MM3 (4.0-11.0)
[2017-07-28 12:06] LABS: PROTHROMBIN TIME - PATIENT 10.4 SEC (9.8-11.6)
[2017-07-28 12:36] LABS: AST (GOT) 15 U/L (15-37); BICARBONATE 24.1 MEQ/L (21.0-32.0); BLOOD UREA NITROGEN 10 MG/DL (7-18); CALCIUM 9.4 MG/DL (8.5-10.1); CHLORIDE 104 MEQ/L (98-107); CREATININE 0.92 MG/DL (0.50-1.00); GLOMERULAR FILTRATION RATE 62 ML/MIN (>89); GLUCOSE,RANDOM 123 MG/DL (74-106); SODIUM (NA) 136 MEQ/L (136-145)
[2017-07-28 12:45] LABS: ALKALINE PHOSPHATASE 123 U/L (45-117); ALT (GPT) 20 U/L (10-53); TOTAL BILIRUBIN ADULT 0.5 MG/DL (0.2-1.0); TOTAL PROTEIN 7.9 GM/DL (6.4-8.2); TROPONIN I LESS THAN 0.02 NG/ML (0.02-0.05)
[2017-07-28] MEDS ORDERED: IOHEXOL 350 MG/ML 10 ML VIAL (for RAD DIAG) IVCONTRAST ONE (13:51)
--- NOTE | 2017-07-28 13:55 | RADRPT ---
EXAM DATE/TIME: 07/28/2017 13:39 [facility] COMPARISON: No previous studies available for comparison. INDICATIONS : Shortness of breath and chest pain. IV CONTRAST: 73 cc Omnipaque 350 (iohexol) IV RADIATION DOSE: 19.28 CTDIvol (mGy) MEDICAL HISTORY : Cardiovascular disease. Chronic obstructive pulmonary disease. Carcinoma, lung. SURGICAL HISTORY : None. ENCOUNTER: Initial ACUITY: 1 day PAIN SCALE: 4/10 LOCATION: chest TECHNIQUE: Volumetric scanning of the chest was performed using a pulmonary embolism protocol MIP images were re constructed. Using automated exposure control and adjustment of the mA and/or kV according to patien t size, radiation dose was kept as low as reasonably achievable to obtain optimal diagnostic quality images. DICOM format image data is available electronically for review and comparison. Follow-up recommendations for detected pulmonary nodules are based at a minimum on nodule size and pa tient risk factors according to Fleischner Society Guidelines. FINDINGS: No filling defects identified to suggest pulmonary embolic disease. Previous partial resection of the right lung. Small to moderate size right pleural effusion. Apical lung scarring. No left effusion. No hilar, mediastinal or axillary adenopathy. There is some mediastinal shift from left to right. No acute findings in the upper abdomen. CONCLUSION: 1. Negative for pulmonary embolus. 2. Previous partial right lung resection with small to moderate right pleural effusion that is at anh st partially loculated. Abner Rose MD on July 28, 2017 at 13:48 Board Certified Radiologist. This report was verified electronically.
--- NOTE | 2017-07-28 14:10 | PD ---
HPI Chief Complaint: Chest Pain Time Seen by Provider: 10:53 Travel History International Travel<30 days: No Contact w/Intl Traveler<30days: No Traveled to known affect area: No History of Present Illness HPI Patient is a 62 year old female, BIBEMS, complaining of chest pain. She says she was working in the garden and when she came in, she started to have pain in her chest radiating up her neck. She also reports difficulty breathing. She has history of lung CA and COPD and takes a daily medication. She does not use a rescue inhaler. She denies cough or cold or fever or chills. She had a back surgery about 3 weeks ago and reports being active since then and having no issues with the back. She has not taken anything for her symptoms. Severity is moderate to severe. 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) GERD: Yes Genitourinary: No Headaches: Yes Hepatitis: No Hiatal Hernia: No Hypertension: No Immune Disorder: No Medical other: No Musculoskeletal: Yes (herniated discs in back) Neurologic: Yes (L SIDE LOWER LEG PAIN RADIATING DOWN WITH NUMBNESS AND TINGLING WITH DROP ) Psychiatric: No Reproductive: No Respiratory: Yes (COPD, LUNG CA) Immunizations Current: No Migraines: No Myocardial Infarction: No Radiation Therapy: No Seizures: No Thyroid Disease: No Tetanus Vaccination: > 5 Years Influenza Vaccination: Yes ?: Not Menopausal: Yes Past Surgical History Abdominal Surgery: Yes (PENNY BSO) AICD: No Appendectomy: Yes Arteriovenous Shunt: No Body Medical Devices: pins in l foot, CLIPS ON R SIDE LUNG AREA Cardiac Surgery: No Ear Surgery: No Endocrine Surgery: No Eye Surgery: No Genitourinary Surgery: No Gynecologic Surgery: Yes (PENNY BSO) Hysterectomy: Yes Insulin Pump: No Joint Replacement: No Oral Surgery: Yes Pacemaker: No Thoracic Surgery: Yes (right lung) Tonsillectomy: Yes Other Surgery: Yes (right lung) Social History Alcohol Use: Yes (OCCASIONAL) Tobacco Use: No (QUIT) Substance Use: No Allergies-Medications (Allergen,Severity, Reaction): Coded Allergies: codeine (Verified Allergy, Severe, SOB-N/V, 07/28/17) hydromorphone (Verified Allergy, Severe, Anaphylaxis, 07/28/17) morphine (Verified Allergy, Severe, SOB-N/V, 07/28/17) propofol (Verified Allergy, Severe, Anaphylaxis, 07/28/17) Reported Meds & Prescriptions Reported Meds & Active Scripts Active Ultram (Tramadol HCl) 50 Mg Tab 50 Mg PO Q4H PRN Reported Lisinopril 10 Mg Tab 10 Mg PO DAILY Anoro Ellipta Inh (Umeclidinium/Vilanterol) 62.5-25 Mcg/Act Aero 1 Puff INH DAILY Tessalon Perles (Benzonatate) 100 Mg Cap 100 Mg PO TID PRN Ranitidine Maximum Strength (Ranitidine HCl) 150 Mg Tab 150 Mg PO BID B-12 (Cyanocobalamin) 1,000 Mcg Subl 1,000 Mcg SL BID Calcium 600 with Vitamin D (Calcium Carbonate-Cholecalciferol) 600-400 mg-Unit Tab 1 Tab PO DAILY Biotin 5 Mg Cap 5,000 Mcg PO DAILY Eemt Hs 0.625-1.25 mg Tablet (Estrogen,Dali/Me-Testosterone) 0.625 Mg-1.25 Mg Tablet 1 Tab PO DAILY Vitamin C ER (Ascorbic Acid) 500 Mg Jordan 2,000 Mg PO BID B Complex (B-Complex Vitamins) 1 Cap 1 Cap PO DAILY Nucynta (Tapentadol) 50 Mg Tab 50 Mg PO Q4H PRN Atrovent HFA 12.9 GM Inh (Ipratropium [place]) 17 Mcg/Act Aer 2 Puff INH BID PRN Flexeril (Cyclobenzaprine HCl) 10 Mg Tab 10 Mg PO HS PRN Review of Systems Except as stated in HPI: all other systems reviewed are Neg General / Constitutional: No: Fever, Chills HENT: No: Headaches, Lightheadedness Cardiovascular: Positive: Chest Pain or Discomfort Respiratory: Positive: Shortness of Breath Gastrointestinal: No: Nausea, Vomiting Genitourinary: No: Dysuria Musculoskeletal: No: Edema Skin: No Rash, No Change in Pigmentation Neurologic: No: Weakness, Dizziness Physical Exam Narrative GENERAL: Awake and alert, in no acute distress. SKIN: Focused skin assessment warm/dry. No wounds or signs of infection. HEAD: Atraumatic. Normocephalic. EYES: Pupils equal and round. No scleral icterus. ENT: No nasal bleeding or discharge. Mucous membranes pink and moist. NECK: Trachea midline. No JVD. CARDIOVASCULAR: Regular rate and rhythm. No murmur appreciated. RESPIRATORY: Tachypnea. Occasional wheezes. Breath sounds equal bilaterally. GASTROINTESTINAL: Abdomen soft, non-tender, nondistended. MUSCULOSKELETAL: No obvious deformities. No clubbing. No cyanosis. No edema. NEUROLOGICAL: Awake and alert. No obvious cranial nerve deficits. Motor grossly within normal limits. Normal speech. PSYCHIATRIC: Appropriate mood and affect; insight and judgment normal. Data Data Last Documented VS Vital Signs Date Time Temp Pulse Resp B/P (MAP) Pulse Ox O2 Delivery O2 Flow Rate FiO2 07/28/17 13:08 97.8 87 18 122/67 (85) 100 Nasal Cannula 2.00 21 Orders Orders Complete Blood Count With Diff (07/28/17 10:55) Comprehensive Metabolic Panel (07/28/17 10:55) B-Type Natriuretic Peptide (07/28/17 10:55) Act Partial Throm Time (Ptt) (07/28/17 10:55) Prothrombin Time / Inr (Pt) (07/28/17 10:55) Troponin I (07/28/17 10:55) Iv Access Insert/Monitor (07/28/17 10:55) Ecg Monitoring (07/28/17 10:55) Oximetry (07/28/17 10:55) Oxygen Administration (07/28/17 10:55) Chest, Single Ap (07/28/17 10:55) Sodium Chloride 0.9% Flush (Ns Flush) (07/28/17 11:00) Albuterol-Ipratropium Neb (Duoneb Neb) (07/28/17 11:00) Ct Pulmonary Angiogram (07/28/17 11:00) Sodium Chlor 0.9% 1000 Ml Inj (Ns 1000 M (07/28/17 11:15) Tramadol (Ultram) (07/28/17 11:30) Electrocardiogram (07/28/17 10:51) Iohexol 350 Inj (Omnipaque 350 Inj) (07/28/17 13:51) Admit Order (Ed Use Only) (07/28/17 ) Labs Laboratory Tests Test 07/28/17 11:00 White Blood Count 19.5 TH/MM3 Red Blood Count 3.99 MIL/MM3 Hemoglobin 11.7 GM/DL Hematocrit 35.4 % Mean Corpuscular Volume 88.7 FL Mean Corpuscular Hemoglobin 29.3 PG Mean Corpuscular Hemoglobin Concent 33.1 % Red Cell Distribution Width 13.4 % Platelet Count 565 TH/MM3 Mean Platelet Volume 7.7 FL Neutrophils (%) (Auto) 72.8 % Lymphocytes (%) (Auto) 17.9 % Monocytes (%) (Auto) 8.2 % Eosinophils (%) (Auto) 0.6 % Basophils (%) (Auto) 0.5 % Neutrophils # (Auto) 14.2 TH/MM3 Lymphocytes # (Auto) 3.5 TH/MM3 Monocytes # (Auto) 1.6 TH/MM3 Eosinophils # (Auto) 0.1 TH/MM3 Basophils # (Auto) 0.1 TH/MM3 CBC Comment DIFF FINAL Differential Comment Prothrombin Time 10.4 SEC Prothromb Time International Ratio 1.0 RATIO Activated Partial Thromboplast Time 25.9 SEC Blood Urea Nitrogen 10 MG/DL Creatinine 0.92 MG/DL Random Glucose 123 MG/DL Total Protein 7.9 GM/DL Albumin 4.0 GM/DL Calcium Level 9.4 MG/DL Alkaline Phosphatase 123 U/L Aspartate Amino Transf (AST/SGOT) 15 U/L Alanine Aminotransferase (ALT/SGPT) 20 U/L Total Bilirubin 0.5 MG/DL Sodium Level 136 MEQ/L Potassium Level 4.2 MEQ/L Chloride Level 104 MEQ/L Carbon Dioxide Level 24.1 MEQ/L Anion Gap 8 MEQ/L Estimat Glomerular Filtration Rate 62 ML/MIN Troponin I LESS THAN 0.02 NG/ML B-Type Natriuretic Peptide 17 PG/ML MDM Medical Decision Making Medical Screen Exam Complete: Yes Emergency Medical Condition: Yes Medical Record Reviewed: Yes Interpretation(s) ECG shows NSR, no ST elevation or depression. Differential Diagnosis ACS vs NSTEMI vs STEMI vs PE vs pneumonia Narrative Course Patient is a 62 year old female who comes in complaining of chest pain and SOB. Exam shows tachypnea. IV established, labs sent, connected to the information systems auditor. Patient received a duoneb and nitro in route to the hospital as well as aspirin. She did not improve, but her blood pressure did drop. Labs show an elevated WBC count, however, patient has no infectious symptoms. CXR shows pleural effusion. CTA shows no evidence of PE. Last [address] Angiography 07/28/17 1100 Signed Impressions: Service Date/Time: Friday, July 28, 2017 13:39 - CONCLUSION: 1. Negative for pulmonary embolus. 2. Previous partial right lung resection with small to moderate right pleural effusion that is at least partially loculated. Abner Rose MD Chest X-Ray 07/28/17 1055 Signed Impressions: Service Date/Time: Friday, July 28, 2017 11:28 - CONCLUSION: 1. Postsurgical features of prior right lobectomy with small right pleural effusion. 2. Left lung is clear. Rufino Swanson MD Patient reports she has had the pleural effusion for a while and this is not new. She will be placed in chest pain center for ACS rule out. Diagnosis Primary Impression: Chest pain Qualified Codes: R07.9 - Chest pain, unspecified Admitting Information Admitting Physician Requests: Erin Morales MD Jul 28, 2017 14:10
[2017-07-28] MEDS ORDERED: ONDANSETRON HCL 4 MG/2 ML VIAL IV PUSH PRN (15:15)
[2017-07-28] MEDS ORDERED: RESP: ALBUTEROL 2.5 MG/IPRATROPIUM 0.5 MG NEB (PRN) INH (15:15)
[2017-07-28] MEDS ORDERED: ACETAMINOPHEN 500 MG CPLT PO PRN (15:15)
--- NOTE | 2017-07-28 15:32 | HHI.HP ---
[facility] Primary Care Physician Zain Perez MD Chief Complaint Chest pain History of Present Illness This is a 62-year-old female with history of hypertension, COPD, history of lung cancer status post right middle and lower lobectomy, chronic back pain with lumbar fusion June 29, 2017 presents with complaint of intermittent chest pains since February of last year. States that she has an episode of this discomfort on average 2 times a month. Nothing in particular brings it on when it occurs it lasts 15-30 seconds. Describes it as an electrical impulse in the center of her chest that radiates to her left shoulder. She is referred to Dr. Samano and had a stress test last year. I discussed this with them and she had the stress test in January that was nonischemic. She states she last saw him in May and has a follow-up appointment in September. She had a similar discomfort yesterday also lasting about 15-30 seconds. No other associated symptoms. Was doing nothing. Then this morning while she was out in the yard watching her do yard work she developed the same discomfort. This also lasted 15-30 seconds. However when that resolved she developed a throbbing sensation in center of her chest that has been there constantly however waxes and wanes. Nothing in particular makes it worse. She is also had worsening of discomfort when she takes in a deep breath. She states she was diaphoretic initially but that has resolved. No nausea. Really not short of breath however it hurt to take in a deep breath. These symptoms are new to her. She was brought in by [facility]. States she was given 2 sublingual nitroglycerin which did not change her symptoms. Throbbing discomfort and inspirational chest discomfort are still present however not as intense as it was at 9:00 this morning. Denies recent illness. Denies fevers or chills. States she saw her oncologist the beginning of this month and states everything is looking fine. Denies URI symptoms. Denies any difficulty with urination. Denies change in bowel habits. Denies recent travel. Review of Systems General: Patient denies fevers, chills, and recent travel. HEENT: Patient denies headache, sore throat, difficulty swallowing. Cardiovascular: Has the chest discomfort as mentioned above. Denies sensation of heart beating rapidly or irregularly. No syncope. She was briefly diaphoretic this morning. Respiratory: Has inspirational chest discomfort. Denies shortness of breath. Denies coughing wheezing or hemoptysis. GI: Patient denies nausea, vomiting, diarrhea, abdominal pain, bloody stools. Musculoskeletal: Chronic back pain. Had recent lumbar fusion. Patient denies joint pain or edema. Denies calf pain or edema. Neurovascular: Patient denies numbness, tingling, weakness in extremities. Denies headache. Endocrine: Denies polyuria and polydipsia. Hematologic: Denies easy bruising. Skin: Denies rash or itching. Past Family Social History Allergies: Coded Allergies: codeine (Verified Allergy, Severe, SOB-N/V, 07/28/17) hydromorphone (Verified Allergy, Severe, Anaphylaxis, 07/28/17) morphine (Verified Allergy, Severe, SOB-N/V, 07/28/17) propofol (Verified Allergy, Severe, Anaphylaxis, 07/28/17) Past Medical History Hypertension, COPD, chronic back pain with lumbar fusion June 29, 2017, right lung cancer with right middle and lower lobe lobectomy in 2015 and also had chemotherapy. Past tobacco abuse but quit smoking November 2015. Denies diabetes, hyperlipidemia, and known CAD. Past Surgical History Recent lumbar fusion. Right middle and lower lobectomy, appendectomy, and hysterectomy. Reported Medications Reported Meds & Active Scripts Active Ultram (Tramadol HCl) 50 Mg Tab 50 Mg PO Q4H PRN Reported Lisinopril-Hctz 20-25 Mg Tab 1 Tab PO BID Anoro Ellipta Inh (Umeclidinium/Vilanterol) 62.5-25 Mcg/Act Aero 1 Puff INH DAILY Tessalon Perles (Benzonatate) 100 Mg Cap 100 Mg PO TID PRN Ranitidine Maximum Strength (Ranitidine HCl) 150 Mg Tab 150 Mg PO BID B-12 (Cyanocobalamin) 1,000 Mcg Subl 1,000 Mcg SL BID Calcium 600 with Vitamin D (Calcium Carbonate-Cholecalciferol) 600-400 mg-Unit Tab 1 Tab PO DAILY Biotin 5 Mg Cap 5,000 Mcg PO DAILY Eemt Hs 0.625-1.25 mg Tablet (Estrogen,Dali/Me-Testosterone) 0.625 Mg-1.25 Mg Tablet 1 Tab PO DAILY Vitamin C ER (Ascorbic Acid) 500 Mg Jordan 2,000 Mg PO BID B Complex (B-Complex Vitamins) 1 Cap 1 Cap PO DAILY Nucynta (Tapentadol) 50 Mg Tab 50 Mg PO Q4H PRN Atrovent HFA 12.9 GM Inh (Ipratropium [place]) 17 Mcg/Act Aer 2 Puff INH BID PRN Flexeril (Cyclobenzaprine HCl) 10 Mg Tab 10 Mg PO HS PRN Active Ordered Medications Current Medications Medications (Trade) Dose Ordered Sig/Priscila Route Start Time Stop Time Status Last Admin (NS Flush) 2 ml UNSCH PRN IVF 07/28/17 11:00 07/28/17 11:04 (Tylenol) 500 mg Q4H PRN PO 07/28/17 15:15 (Zofran Inj) 4 mg Q6H PRN IV PUSH 07/28/17 15:15 (Protonix) 40 mg DAILY PO 07/28/17 16:00 (Aspirin) 325 mg DAILY PO 07/29/17 09:00 (Duoneb Neb) 1 ampule Q4HR NEB PRN INH 07/28/17 15:15 (Xanax) 0.25 mg Q8H PRN PO 07/28/17 15:15 Family History Denies family history of CAD. Social History Quit smoking November 2015 prior to that she smoked 1 pack of cigarettes daily for 45 years. She has on average a couple alcoholic beverages per week. Denies illicit drugs. She is . 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 Physical Exam Vital Signs Vital Signs Date Time Temp Pulse Resp B/P (MAP) Pulse Ox O2 Delivery O2 Flow Rate FiO2 07/28/17 13:08 97.8 87 18 122/67 (85) 100 Nasal Cannula 2.00 21 07/28/17 12:36 17 07/28/17 11:24 86 22 116/63 (80) 99 Nasal Cannula 2.00 07/28/17 11:05 96 21 07/28/17 10:59 20 98 Room Air 07/28/17 10:59 98 Room Air 07/28/17 10:50 97.7 89 20 90/55 (67) 99 07/28/17 10:50 89 20 99 Room Air Physical Exam GENERAL: This is a well-nourished, well-developed patient, in no apparent distress. Patient speaks in clear complete sentences. Patient is pleasant. HEENT: Head is atraumatic and normocephalic. Neck is supple without lymphadenopathy and trachea is midline. No JVD or carotid bruits. CARDIOVASCULAR: Regular rate and rhythm without murmurs, gallops, or rubs. RESPIRATORY: Clear to auscultation. Decreased lung sounds right base. No wheezes, rales, or rhonchi. Chest wall is tender just left of the sternum worsening discomfort that she has been having since 9 this morning. No use of accessory muscles. GASTROINTESTINAL: Abdomen is nontender, nondistended. Abdomen soft. No obvious pulsatile mass or bruit. No CVA tenderness. Strong femoral pulses bilaterally. Normal bowel sounds in all quadrants. MUSCULOSKELETAL: Discomfort with movement of her back, full range of motion not evaluated, patient is in a back brace from recent lumbar fusion. Patient is moving upper and lower extremities freely. No calf tenderness or edema, no Homans sign. Strong pulses in upper and lower extremities. NEUROLOGICAL: Patient is alert and oriented. Cranial nerves 2-12 are grossly intact. No focal deficits and speech is clear. SKIN: No rash and turgor is normal. Laboratory Laboratory Tests Test 07/28/17 11:00 White Blood Count 19.5 Red Blood Count 3.99 Hemoglobin 11.7 Hematocrit 35.4 Mean Corpuscular Volume 88.7 Mean Corpuscular Hemoglobin 29.3 Mean Corpuscular Hemoglobin Concent 33.1 Red Cell Distribution Width 13.4 Platelet Count 565 Mean Platelet Volume 7.7 Neutrophils (%) (Auto) 72.8 Lymphocytes (%) (Auto) 17.9 Monocytes (%) (Auto) 8.2 Eosinophils (%) (Auto) 0.6 Basophils (%) (Auto) 0.5 Neutrophils # (Auto) 14.2 Lymphocytes # (Auto) 3.5 Monocytes # (Auto) 1.6 Eosinophils # (Auto) 0.1 Basophils # (Auto) 0.1 CBC Comment DIFF FINAL Differential Comment Prothrombin Time 10.4 Prothromb Time International Ratio 1.0 Activated Partial Thromboplast Time 25.9 Blood Urea Nitrogen 10 Creatinine 0.92 Random Glucose 123 Total Protein 7.9 Albumin 4.0 Calcium Level 9.4 Alkaline Phosphatase 123 Aspartate Amino Transf (AST/SGOT) 15 Alanine Aminotransferase (ALT/SGPT) 20 Total Bilirubin 0.5 Sodium Level 136 Potassium Level 4.2 Chloride Level 104 Carbon Dioxide Level 24.1 Anion Gap 8 Estimat Glomerular Filtration Rate 62 Troponin I LESS THAN 0.02 B-Type Natriuretic Peptide 17 Result Diagram: 07/28/17 1100 07/28/17 1100 Imaging Last [address] Angiography 07/28/17 1100 Signed Impressions: Service Date/Time: Friday, July 28, 2017 13:39 - CONCLUSION: 1. Negative for pulmonary embolus. 2. Previous partial right lung resection with small to moderate right pleural effusion that is at least partially loculated. Abner Rose MD Chest X-Ray 07/28/17 1055 Signed Impressions: Service Date/Time: Friday, July 28, 2017 11:28 - CONCLUSION: 1. Postsurgical features of prior right lobectomy with small right pleural effusion. 2. Left lung is clear. Rufino Swanson MD Course Initial EKG is sinus rhythm without significant ST segment depressions or elevations. Caprini VTE Risk Assessment Caprini VTE Risk Assessment: Mod/High Risk (score >= 2) Caprini Risk Assessment Model Point Value = 1 Point Value = 2 Point Value = 3 Point Value = 5 Age 41-60 Minor surgery BMI > 25 kg/m2 Swollen legs Varicose veins or History of unexplained or recurrent spontaneous Oral contraceptives or hormone replacement Sepsis (< 1 month) Serious lung disease, including pneumonia (< 1 month) Abnormal pulmonary function Acute myocardial infarction Congestive heart failure (< 1 month) History of inflammatory bowel disease Medical patient at bed rest Age 61-74 Arthroscopic surgery Major open surgery (> 45 min) Laparoscopic surgery (> 45 min) Malignancy Confined to bed (> 72 hours) Immobilizing plaster cast Central venous access Age >= 75 History of VTE Family history of VTE Factor V Leiden Prothrombin [id number] Lupus anticoagulant Anticardiolipin antibodies Elevated serum homocysteine Heparin-induced thrombocytopenia Other congenital or acquired thrombophilia Stroke (< 1 month) Elective arthroplasty Hip, pelvis, or leg fracture Acute spinal cord injury (< 1 month) Prophylaxis Regimen Total Risk Factor Score Risk Level Prophylaxis Regimen 0-1 Low Early ambulation 2 Moderate Order ONE of the following: *Sequential Compression Device (SCD) *Heparin 5000 units SQ BID 3-4 Higher Order ONE of the following medications: *Heparin 5000 units SQ TID *Enoxaparin/Lovenox 40 mg SQ daily (WT < 150 kg, CrCl > 30 mL/min) *Enoxaparin/Lovenox 30 mg SQ daily (WT < 150 kg, CrCl > 10-29 mL/min) *Enoxaparin/Lovenox 30 mg SQ BID (WT < 150 kg, CrCl > 30 mL/min) AND/OR *Sequential Compression Device (SCD) 5 or more Highest Order ONE of the following medications: *Heparin 5000 units SQ TID (Preferred with Epidurals) *Enoxaparin/Lovenox 40 mg SQ daily (WT < 150 kg, CrCl > 30 mL/min) *Enoxaparin/Lovenox 30 mg SQ daily (WT < 150 kg, CrCl > 10-29 mL/min) *Enoxaparin/Lovenox 30 mg SQ BID (WT < 150 kg, CrCl > 30 mL/min) AND *Sequential Compression Device (SCD) Assessment and Plan Assessment and Plan * Chest pain: Patient will continue to have serial cardiac enzymes and EKGs for ruling out purposes. CTA was negative for PE. She will be seen by Dr. Boudreaux of cardiology in the chest pain center. I discussed the patient with Dr. Samano, he did confirm that she had a nonischemic chemical stress test January 2017. We will get another stress test while she is here if she rules out. She would be discharged home if her stress test is nonischemic with instructions to follow-up with PCP and cardiology. She should return to ED for interval issues. * Leukocytosis: No obvious source. We will repeat a CBC in the morning. * Hypertension: Continue current medication. * Chronic back pain: Continue current medication. * COPD: We will have DuoNeb's as needed. Patient is stable at this time. She is agreeable to this plan. Darrell Alejanrde Jul 28, 2017 15:31
[2017-07-28] MEDS ORDERED: LISI10TA3 PO (15:36)
[2017-07-28] MEDS ORDERED: traMADol HCL 50 MG TAB PO PRN (15:45)
[2017-07-28] MEDS ORDERED: CYCLOBENZAPRINE HCL 10 MG TAB PO PRN (15:45)
[2017-07-28] MEDS: PANTOPRAZOLE SOD 40 MG DELAYED RELEASE TAB PO SCH (16:07)
[2017-07-28 16:48] LABS: TROPONIN I LESS THAN 0.02 NG/ML (0.02-0.05)
[2017-07-28] MEDS: TAPENTADOL 50 MG PO PRN (16:59)
[2017-07-28] MEDS ORDERED: NITROGLYCERIN 2% OINT 1 GM PACKET TOPICAL ONE (18:45)
[2017-07-28] MEDS ORDERED: ENOXAPARIN SODIUM 80 MG/0.8 ML SYRINGE SQ ONE (18:45)
[2017-07-28 18:59] LABS: TROPONIN I LESS THAN 0.02 NG/ML (0.02-0.05)
[2017-07-28] MEDS: ALPRAZolam 0.25 MG TAB PO PRN (19:57)
[2017-07-28] MEDS: MEPERIDINE HCL 25 MG/ML VIAL IV PRN (20:28)
--- NOTE | 2017-07-28 22:55 | EKG ---
Date Performed: 07/28/2017 Time Performed: 10:51:00 PTAGE: 62 years EKG: Sinus rhythm NONSPECIFIC ST & T-WAVE ABNORMALITY BORDERLINE ECG INTERPRETATION BASED ON A DEFAULT AGE OF 40 YEARS PREVIOUS TRACING : 06/15/2017 10.17 Since the previous tracing, no significant change not ed DOCTOR: Boy Nelson Interpretating Date/Time 07/28/2017 22:54:55
[2017-07-29] VITALS (8 sets, daily range): BP systolic 80–132; BP diastolic 50–68; PULSE 91–96; RESP 19–22; TEMP 97.9–98.6; O2SAT 96–98
[2017-07-29] MEDS: TAPENTADOL 50 MG PO PRN (00:36)
[2017-07-29] MEDS: ALPRAZolam 0.25 MG TAB PO PRN (06:25)
[2017-07-29] MEDS: MEPERIDINE HCL 25 MG/ML VIAL IV PRN (06:26)
[2017-07-29 07:03] LABS: AUTOMATED NEUTROPHIL # 9.5 TH/MM3 (1.8-7.7); BASOPHIL % 0.3 % (0.0-2.0); EOSINOPHIL % 0.2 % (0.0-4.0); LYMPH % 18.2 % (9.0-44.0); LYMPHOCYTE # 2.5 TH/MM3 (1.0-4.8); MEAN CELL VOLUME 88.4 FL (80.0-100.0); MEAN CORPUSCULAR HEMOGLOBIN 29.6 PG (27.0-34.0); MEAN CORPUSCULAR HGB CONC 33.5 % (32.0-36.0); MEAN PLATELET VOLUME 7.4 FL (7.0-11.0); MONO % 11.9 % (0.0-8.0); MONOCYTE # 1.6 TH/MM3 (0-0.9); NEUT % 69.4 % (16.0-70.0); PLATELET COUNT 452 TH/MM3 (150-450); RED BLOOD COUNT 3.39 MIL/MM3 (4.00-5.30); RED CELL DISTRIBUTION WIDTH 13.7 % (11.6-17.2); WHITE BLOOD COUNT 13.6 TH/MM3 (4.0-11.0)
--- NOTE | 2017-07-29 07:07 | EKG ---
Date Performed: 07/28/2017 Time Performed: 15:54:43 PTAGE: 62 years EKG: Sinus rhythm NORMAL ECG Since PREVIOUS TRACING , no significant change noted PREVIOUS TRACIN07/28/2017 10.51 DOCTOR: Nikki Boudreaux Interpretating Date/Time 07/30/2017 06:39:03
--- NOTE | 2017-07-29 07:08 | EKG ---
Date Performed: 07/28/2017 Time Performed: 18:39:18 PTAGE: 62 years EKG: Sinus rhythm POSSIBLE LEFT VENTRICULAR HYPERTROPHY ABNORMAL ECG Artifact Since PREVIOUS TRACING , no significant change noted PREVIOUS TRACIN07/28/2017 15.54 DOCTOR: Nikki Boudreaux Interpretating Date/Time 07/29/2017 07:06:09
[2017-07-29] MEDS ORDERED: SODIUM CHLORID 0.9% 500 ML INJ 500 ML IV ONE ×3 (08:00→12:30)
[2017-07-29] MEDS ORDERED: ASPIRIN 325 MG TAB PO SCH (09:00)
[2017-07-29] MEDS ORDERED: LISINOPRIL 10 MG TAB PO SCH (09:00)
[2017-07-29] MEDS: PANTOPRAZOLE SOD 40 MG DELAYED RELEASE TAB PO SCH (09:22)
[2017-07-29] MEDS ORDERED: REGADENOSON INJ 0.4 MG/5 ML SYR ONE (10:50)
--- NOTE | 2017-07-29 12:06 | RADRPT ---
EXAM DATE/TIME: 07/29/2017 10:33 [place] COMPARISON: No previous studies available for comparison. INDICATIONS : Chest pain. DOSE: 25.8 mCi Tc99m Myoview at stress. 8.6 mCi Tc99m Myoview at rest. 0.4 mg Lexiscan STRESS SYMPTOMS: Dyspnea and chest pain. EJECTION FRACTION: 65% MEDICAL HISTORY : Gastroesophageal reflux disease. Chronic obstructive pulmonary disease. SURGICAL HISTORY : Appendectomy. Hysterectomy. Tonsillectomy. Right lung lobectomy. ENCOUNTER: Initial ACUITY: 1 day PAIN SCALE: 4/10 LOCATION: chest TECHNIQUE: The patient underwent pharmacologic stress with infusion of prescribed dose. Continuous ECG tracing was monitored during stress. Gated SPECT imaging was performed after stress and conventional SPECT i maging was performed at rest. The examination was performed on a SPECT/CT scanner, both attenuation and non-corrected datasets were reviewed. FINDINGS: DISTRIBUTION: The maximum perfused segment at stress is in the inferior wall. PERFUSION STUDY: No reversible perfusion defects are seen. GATED STUDY: There is intact wall motion and thickening without hypokinetic or dyskinetic segments. CONCLUSION: 1. No reversible perfusion defects to suggest ischemia. 2. Normal ejection fraction. RISK CATEGORY: Low (<1% Annual Mortality Rate) Haider Henning MD on July 29, 2017 at 12:03 Board Certified Radiologist. This report was verified electronically.
--- NOTE | 2017-07-29 14:07 | HHI.DCPOC ---
Discharge Care Plan Diagnosis: (1) Chest pain (2) Hypertension (3) Chronic back pain Goals to Promote Your Health * To prevent worsening of your condition and complications * To maintain your health at the optimal level Directions to Meet Your Goals Take your medications as prescribed Follow your dietary instruction Follow activity as directed Keep your appointments as scheduled Take your immunizations and boosters as scheduled If your symptoms worsen call your PCP, if no PCP go to Urgent Care Center or Emergency Room Smoking is Dangerous to Your Health. Avoid second hand smoke Call the 24-hour hour crisis hotline for domestic abuse at Darrell Alejandre Jul 29, 2017 14:07
--- NOTE | 2017-07-30 17:42 | TR ---
Date Performed: 07/29/2017 Time Performed: 10:55:54 DOCTOR: Nikki Boudreaux DRUG LIST: CLINICAL HISTORY: REASON FOR TEST: REASON FOR ENDING: OBSERVATION: CONCLUSION: Lexiscan stress test was performed under standard four minute protocol. Radionucl[place] e was injected one minute prior to ending the test. No electrocardiographic abormalities were present to suggest ischemia. Nuclear imaging and interpretation are pending. COMMENTS:
== END 2017-07-29 15:22 | disposition home or self-care (01) ==
LOC: NEPC 10:49 → NEDA 14:12 → NEPHCDU 16:13
PROVIDERS: ADMIT Internal Medicine Interventional Cardiology; ATTEND Internal Medicine Interventional Cardiology
DX: R07.89 Other chest pain (principal); D72.829 Elevated white blood cell count, unspecified; R61 Generalized hyperhidrosis; I10 Essential (primary) hypertension; J44.9 Chronic obstructive pulmonary disease, unspecified; R94.31 Abnormal electrocardiogram [ECG] [EKG]; R06.82 Tachypnea, not elsewhere classified; M54.9 Dorsalgia, unspecified; G89.29 Other chronic pain; K21.9 Gastro-esophageal reflux disease without esophagitis; J90 Pleural effusion, not elsewhere classified; Z79.899 Other long term (current) drug therapy; Z85.118 Personal history of other malignant neoplasm of bronchus and lung; Z98.1 Arthrodesis status; Z87.891 Personal history of nicotine dependence
CPT/HCPCS: 71045; 71275; 78452; 80053; 82550; 82552; 83880; 84484; 85025; 85610; 85730; 93005; 93017; 94664; 96361; 96374; 96376; 99285; A9502; G0378; J1650; J2175; J2785; J7030; J7040; Q9967

== ENCOUNTER 2017-08-10 12:50 | Observation (INO) | payer OTHER ==
[~2017-08-10] VITALS: Ht 188 cm; Wt 86.4 kg
[~2017-08-10 12:50] MED LIST changes: -ALPR.25 PO; -COMMODE 3-IN-11 MIS; -GUAISYP5 PO; -IBUP1TAB7 PO; +LISI10TA3 PO; -LISI20TA3 PO; -TRAM50TA PO; -WALKER WHEELS/F1 MIS
[2017-08-10 12:57] VITALS: BP 155/83; PULSE 80; RESP 20; TEMP 98.5; O2SAT 99
[2017-08-10 14:23] LABS: PROTHROMBIN TIME - PATIENT 9.9 SEC (9.8-11.6)
[2017-08-10 14:28] LABS: AUTOMATED NEUTROPHIL # 6.9 TH/MM3 (1.8-7.7); BASOPHIL # 0.1 TH/MM3 (0-0.2); BASOPHIL % 0.9 % (0.0-2.0); EOSINOPHIL # 0.3 TH/MM3 (0-0.4); EOSINOPHIL % 2.7 % (0.0-4.0); HEMATOCRIT 34.2 % (35.0-46.0); HEMOGLOBIN 11.2 GM/DL (11.6-15.3); LYMPH % 26.2 % (9.0-44.0); LYMPHOCYTE # 2.9 TH/MM3 (1.0-4.8); MEAN CELL VOLUME 89.6 FL (80.0-100.0); MEAN CORPUSCULAR HEMOGLOBIN 29.4 PG (27.0-34.0); MEAN CORPUSCULAR HGB CONC 32.8 % (32.0-36.0); MEAN PLATELET VOLUME 7.6 FL (7.0-11.0); MONO % 8.6 % (0.0-8.0); NEUT % 61.6 % (16.0-70.0); PLATELET COUNT 536 TH/MM3 (150-450); RED BLOOD COUNT 3.82 MIL/MM3 (4.00-5.30); RED CELL DISTRIBUTION WIDTH 14.1 % (11.6-17.2); WHITE BLOOD COUNT 11.1 TH/MM3 (4.0-11.0)
[2017-08-10 14:30] LABS: ALBUMIN 3.7 GM/DL (3.4-5.0); AST (GOT) 17 U/L (15-37); BICARBONATE 26.9 MEQ/L (21.0-32.0); BLOOD UREA NITROGEN 10 MG/DL (7-18); CALCIUM 9.2 MG/DL (8.5-10.1); CHLORIDE 102 MEQ/L (98-107); CREATININE 0.82 MG/DL (0.50-1.00); GLOMERULAR FILTRATION RATE 70 ML/MIN (>89); GLUCOSE,RANDOM 89 MG/DL (74-106); MAGNESIUM 2.1 MG/DL (1.5-2.5); SODIUM (NA) 137 MEQ/L (136-145)
[2017-08-10 14:35] LABS: ALKALINE PHOSPHATASE 97 U/L (45-117); ALT (GPT) 20 U/L (10-53); TOTAL BILIRUBIN ADULT 0.4 MG/DL (0.2-1.0); TOTAL PROTEIN 7.7 GM/DL (6.4-8.2); TROPONIN I LESS THAN 0.02 NG/ML (0.02-0.05)
[2017-08-10 14:43] VITALS: BP 135/63; PULSE 87; RESP 18; O2SAT 100
[2017-08-10] MEDS ORDERED: ALPR.25 PO (14:49)
--- NOTE | 2017-08-10 16:01 | PD ---
HPI Chief Complaint: Respiratory Symptoms Time Seen by Provider: 14:36 Travel History International Travel<30 days: No Contact w/Intl Traveler<30days: No Traveled to known affect area: No History of Present Illness HPI 62-year-old female with PMH of COPD, right pneumonectomy 2/2 lung CA presents to the ED for evaluation of 13 day history of cough productive of yellow phlegm , shortness of breath. Patient states that she was evaluated here 13 days ago underwent imaging. She was discharged with instructions to follow up outpatient with the recreation officer. She was provided with a brief course of oral steroids at that time. She saw her recreation officer Dr. Clay today who recommended she return to the ED for ultrasound guided thoracentesis after x- ray revealed right-sided pleural effusion. On presentation the patient complains of cough, pleuritic chest pain, shortness of breath. She denies fever , chills, hemoptysis, palpitations, nausea, vomiting, dysuria, lower extremity edema. She endorses compliance with daily Anoro. She is not oxygen dependent at home. 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) GERD: Yes Genitourinary: No Headaches: Yes Hepatitis: No Hiatal Hernia: No Hypertension: No Immune Disorder: No Musculoskeletal: Yes (herniated discs in back) Neurologic: Yes (L SIDE LOWER LEG PAIN RADIATING DOWN WITH NUMBNESS AND TINGLING WITH DROP ) Psychiatric: No Reproductive: No Respiratory: Yes (COPD, LUNG CA) Immunizations Current: No Migraines: No Myocardial Infarction: No Radiation Therapy: No Seizures: No Thyroid Disease: No Tetanus Vaccination: < 5 Years Menopausal: Yes Past Surgical History Abdominal Surgery: Yes (PENNY BSO) AICD: No Appendectomy: Yes Arteriovenous Shunt: No Body Medical Devices: pins in l foot, CLIPS ON R SIDE LUNG AREA Cardiac Surgery: No Ear Surgery: No Endocrine Surgery: No Eye Surgery: No Genitourinary Surgery: No Gynecologic Surgery: Yes (PENNY BSO) Hysterectomy: Yes Insulin Pump: No Joint Replacement: No Oral Surgery: Yes Pacemaker: No Thoracic Surgery: Yes (right lung) Tonsillectomy: Yes Other Surgery: Yes (right lung) Family History Family Myocardial Infarction: Yes (father, from cardiomegaly) Social History Alcohol Use: Yes (OCCASIONAL) Tobacco Use: No (QUIT) Substance Use: No Allergies-Medications (Allergen,Severity, Reaction): Coded Allergies: codeine (Verified Allergy, Severe, SOB-N/V, 08/10/17) hydromorphone (Verified Allergy, Severe, Anaphylaxis, 08/10/17) morphine (Verified Allergy, Severe, SOB-N/V, 08/10/17) propofol (Verified Allergy, Severe, Anaphylaxis, 08/10/17) Uncoded Allergies: COQ10 (Allergy, Unknown, 08/10/17) Reported Meds & Prescriptions Reported Meds & Active Scripts Active Ultram (Tramadol HCl) 50 Mg Tab 50 Mg PO Q4H PRN Reported Xanax (Alprazolam) 0.25 Mg Tab 0.25 Mg PO HS PRN Lisinopril 10 Mg Tab 10 Mg PO DAILY Anoro Ellipta Inh (Umeclidinium/Vilanterol) 62.5-25 Mcg/Act Aero 1 Puff INH DAILY Tessalon Perles (Benzonatate) 100 Mg Cap 100 Mg PO TID PRN Ranitidine Maximum Strength (Ranitidine HCl) 150 Mg Tab 150 Mg PO BID B-12 (Cyanocobalamin) 1,000 Mcg Subl 1,000 Mcg SL BID Calcium 600 with Vitamin D (Calcium Carbonate-Cholecalciferol) 600-400 mg-Unit Tab 1 Tab PO DAILY Biotin 5 Mg Cap 5,000 Mcg PO DAILY Eemt Hs 0.625-1.25 mg Tablet (Estrogen,Dali/Me-Testosterone) 0.625 Mg-1.25 Mg Tablet 1 Tab PO DAILY Vitamin C ER (Ascorbic Acid) 500 Mg Jordan 2,000 Mg PO BID B Complex (B-Complex Vitamins) 1 Cap 1 Cap PO DAILY Atrovent HFA 12.9 GM Inh (Ipratropium [place]) 17 Mcg/Act Aer 2 Puff INH BID PRN Flexeril (Cyclobenzaprine HCl) 10 Mg Tab 10 Mg PO HS PRN Review of Systems Except as stated in HPI: all other systems reviewed are Neg Physical Exam Narrative GENERAL: Well-nourished, well-developed white female in no acute distress. SKIN: Focused skin assessment warm/dry. Well healing surgical incisions lateral to the midline lumbar spine without signs of infection. HEAD: Normocephalic. EYES: No scleral icterus. No injection or drainage. NECK: Supple, trachea midline. No JVD or lymphadenopathy. CARDIOVASCULAR: Regular rate and rhythm without murmurs, gallops, or rubs. RESPIRATORY: Breath sounds diminished on the right. No accessory muscle use. GASTROINTESTINAL: Abdomen soft, non-tender, nondistended. Active bowel sounds. MUSCULOSKELETAL: No cyanosis, or edema. BACK: Nontender without obvious deformity. No CVA tenderness. Data Data Last Documented VS Vital Signs Date Time Temp Pulse Resp B/P (MAP) Pulse Ox O2 Delivery O2 Flow Rate FiO2 08/10/17 16:20 80 16 127/75 (92) 97 Room Air 08/10/17 12:57 98.5 Orders Orders Complete Blood Count With Diff (08/10/17 13:00) Comprehensive Metabolic Panel (08/10/17 13:00) B-Type Natriuretic Peptide (08/10/17 13:00) Act Partial Throm Time (Ptt) (08/10/17 13:00) Prothrombin Time / Inr (Pt) (08/10/17 13:00) Magnesium (Mg) (08/10/17 13:00) Ckmb (Isoenzyme) Profile (08/10/17 13:00) Troponin I (08/10/17 13:00) Electrocardiogram (08/10/17 13:00) CKMB (08/10/17 13:30) CKMB% (08/10/17 13:30) Us Guided Thoracentesis (08/10/17 ) Consent (08/10/17 14:42) ^ Have Supplies At Bedside (08/10/17 14:42) Vital Signs (Adult) Q15MX3,Q8H (08/10/17 14:42) Chest, Single Ap (08/10/17 ) Amylase, Pleural Fluid (08/10/17 14:42) Glucose, Pleural Fluid (08/10/17 14:42) Ldh, Pleural Fluid (08/10/17 14:42) Pleural Fluid Ph (08/10/17 14:42) Pleural Fl Cell Count + Diff (08/10/17 14:42) Fluid Culture And Gram Stain (08/10/17 14:42) Fluid Afb Culture And Stain (08/10/17 14:42) Fluid Fungus Culture And Stain (08/10/17 14:42) Cytology Request For Service (08/10/17 14:42) Total Protein, Pleural Fluid (08/10/17 14:42) Consult Infectious Disease (08/10/17 ) Consult Pulmonology (08/10/17 ) Lidocaine Pf 1% Inj (Xylocaine-Mpf 1% In (08/10/17 16:28) (Hub Use Only)Inp Phy Cons/Ref (08/10/17 ) (Hub Use Only)Inp Phy Cons/Ref (08/10/17 ) Admit Order (Ed Use Only) (08/10/17 17:08) Labs Laboratory Tests Test 08/10/17 13:30 08/10/17 15:40 White Blood Count 11.1 TH/MM3 Red Blood Count 3.82 MIL/MM3 Hemoglobin 11.2 GM/DL Hematocrit 34.2 % Mean Corpuscular Volume 89.6 FL Mean Corpuscular Hemoglobin 29.4 PG Mean Corpuscular Hemoglobin Concent 32.8 % Red Cell Distribution Width 14.1 % Platelet Count 536 TH/MM3 Mean Platelet Volume 7.6 FL Neutrophils (%) (Auto) 61.6 % Lymphocytes (%) (Auto) 26.2 % Monocytes (%) (Auto) 8.6 % Eosinophils (%) (Auto) 2.7 % Basophils (%) (Auto) 0.9 % Neutrophils # (Auto) 6.9 TH/MM3 Lymphocytes # (Auto) 2.9 TH/MM3 Monocytes # (Auto) 1.0 TH/MM3 Eosinophils # (Auto) 0.3 TH/MM3 Basophils # (Auto) 0.1 TH/MM3 CBC Comment DIFF FINAL Differential Comment Prothrombin Time 9.9 SEC Prothromb Time International Ratio 1.0 RATIO Activated Partial Thromboplast Time 25.7 SEC Blood Urea Nitrogen 10 MG/DL Creatinine 0.82 MG/DL Random Glucose 89 MG/DL Total Protein 7.7 GM/DL Albumin 3.7 GM/DL Calcium Level 9.2 MG/DL Magnesium Level 2.1 MG/DL Alkaline Phosphatase 97 U/L Aspartate Amino Transf (AST/SGOT) 17 U/L Alanine Aminotransferase (ALT/SGPT) 20 U/L Total Bilirubin 0.4 MG/DL Sodium Level 137 MEQ/L Potassium Level 4.0 MEQ/L Chloride Level 102 MEQ/L Carbon Dioxide Level 26.9 MEQ/L Anion Gap 8 MEQ/L Estimat Glomerular Filtration Rate 70 ML/MIN Total Creatine Kinase 125 U/L Creatine Kinase MB 2.8 NG/ML Troponin I LESS THAN 0.02 NG/ML B-Type Natriuretic Peptide 70 PG/ML Pleural Fluid pH 8.0 Pleural Fluid WBC 666 /MM3 Pleural Fluid RBC 1720 /MM3 Pleural Fluid Neutrophils 55 % Pleural Fluid Lymphocytes 24 % Pleural Fluid Monocytes 7 % Pleural Fluid Eosinophils 13 % Pleural Fluid Histiocytes 1 % Pleural Fluid Total Protein 4.4 GM/DL Pleural Fluid LDH 318 U/L Pleural Fluid Glucose 85 MG/DL MDM Medical Decision Making Medical Screen Exam Complete: Yes Emergency Medical Condition: Yes Differential Diagnosis PNA versus pleural effusion versus empyema versus other Narrative Course 62-year-old female with PMH of COPD, right pneumonectomy 2/2 lung CA presents to the ED for evaluation of 13 day history of cough productive of yellow phlegm , shortness of breath. She saw her recreation officer Dr. Clay today who recommended she come to the ED for ultrasound guided thoracentesis after x-ray revealed right-sided pleural effusion. On presentation the patient complains of cough, pleuritic chest pain, shortness of breath. Patient is afebrile, pulse 80, O2 sats 99% on room air, respiratory rate 20 on presentation. On exam this is a pleasant white female in no acute distress. There are diminished lung sounds on the right but the exam is otherwise unremarkable. I reviewed the patient's record. Outpatient x-ray performed this morning reveals a moderate right pleural effusion stable in its overall appearance compared to the prior exam. Otherwise no new or significant changes demonstrated per radiology read. CBC: WBC 11.1, hemoglobin 11.2. CMP unremarkable. Cardiac enzymes negative 1 EKG rate 76, sinus rhythm. AL interval 185, QRS 91, QTc 388 ms. Normal axis. No acute ST changes. Thoracentesis was performed, total volume around 700 cc of clear yellow fluid was removed. Fluid studies pending. Postprocedural x-ray reveals decreased right pleural effusion, no evidence of pneumothorax, postsurgical changes following right lobectomy. Dr. Clay came to bedside and discussed the results of the thoracentesis with the patient. He suspects empyema. He would like the patient admitted to medicine with an ID consult. ID consult was placed. I spoke with Dr. Grimm who agrees to accept the patient to the medicine service. Please see medicine notes for disposition. Vivain Holland Aug 10, 2017 16:01
[2017-08-10 16:15] VITALS: BP 119/69; PULSE 84; RESP 16; O2SAT 98
--- NOTE | 2017-08-10 16:17 | RADRPT ---
EXAM DATE/TIME: 08/10/2017 15:53 [facility] COMPARISON: CT PULMONARY ANGIOGRAM, July 28, 2017, 13:39. CHEST SINGLE AP, July 28, 2017, 11:28. INDICATIONS : Post thoracentesis. MEDICAL HISTORY : Carcinoma, lung. Cardiovascular disease. Chronic obstructive pulmonary disease. SURGICAL HISTORY : Cancer removed from heart. ENCOUNTER: Initial ACUITY: 1 day PAIN SCORE: 6/10 LOCATION: Right chest FINDINGS: A single view of the chest demonstrates slight decrease in right basilar opacity following thoracente sis. There is no evidence of pneumothorax. Left lung remains clear. Heart and mediastinal structures are stable. CONCLUSION: A decreased right pleural effusion following thoracentesis. No evidence of pneumothorax. Post surgical changes following right lobectomy again noted. Marko Lowery MD on August 10, 2017 at 16:11 Board Certified Radiologist. This report was verified electronically.
--- NOTE | 2017-08-10 16:19 | RADRPT ---
EXAM DATE/TIME: 08/10/2017 16:09 [facility] COMPARISON: US GUIDED THORACENTESIS RIGHT, July 10, 2016, 10:12. INDICATIONS : Right pleural effusion. MEDICAL HISTORY : Hypertension. COPD. Right lung cancer. Chemotherapy. SURGICAL HISTORY : Lobectomy. Lumbar surgery. Appendectomy. Hysterectomy. ENCOUNTER: Initial ACUITY: 1 day PAIN SCORE: 4/10 LOCATION: Right chest FLUID: Total volume of 700 cc of clear, yellow fluid was removed. Fluid was sent to lab for ordered studies. TECHNIQUE: 1. Ultrasound guidance for thoracentesis. 2. Thoracentesis. The risks, benefits, and alternatives to ultrasound guided thoracentesis were explained to the patien t in lay simple terms, including the risk of bleeding and infection. Written and verbal informed con sent was obtained. Appropriate area for thoracentesis was marked under ultrasound guidance with the patient in the uprig ht position. Overlying skin was prepped and draped in the usual sterile fashion and with local anest hetic, a dermatotomy was made with an 11 blade scalpel. A 6 Prydeinig thoracentesis catheter was placed in the pleural space and fluid was removed. Catheter was then removed and a sterile dressing applie d. There were no immediate complications. The patient complained of significant pain following thora centesis. Chest radiograph is to be obtained. CONCLUSION: Status post ultrasound guided thoracentesis. Patient complained of significant pain following fluid removal. Marko Lowery MD on August 10, 2017 at 16:14 Board Certified Radiologist. This report was verified electronically.
[2017-08-10 16:20] VITALS: BP 127/75; PULSE 80; RESP 16; O2SAT 97
--- NOTE | 2017-08-10 16:23 | PD.RAD ---
Post US Procedure Prog Note Pre Procedure Diagnosis: (1) Pleural effusion, right (2) Right thoracotomy, middle and lower lobe resection en bloc with pericardium and left atrial margin, Post Procedure Diagnosis: (1) Right thoracotomy, middle and lower lobe resection en bloc with pericardium and left atrial margin, (2) Pleural effusion, right Procedure Date: Aug 10, 2017 Supervising Radiologist: Marko Lowery Proceduralist/Assist: Nikki Mathew RDMS Anesthesia: Local Plan of Activity Patient to Unit: ROPU Patient Condition: Good See PACS Report for procedural detail/treatment Drainage Procedure Procedure 1 Imaging Guidance: Ultrasound Side: Right Procedure Type: Thoracentesis Procedure: Removal Drainage: Suction Fluid Removal (CCs): 700 Fluid Description: Cloudy, Yellow, Complicated Marko Lowery MD Aug 10, 2017 16:23
[2017-08-10] MEDS ORDERED: LIDOCAINE HCL 1% PF 10 ML VIAL ONE (16:28)
[2017-08-10 16:50] LABS: TOTAL PROTEIN,PLEURAL FLUID 4.4 GM/DL
[2017-08-10 17:19] LABS: PLEURAL FLUID RBC 1720 /MM3 (0-0); PLEURAL FLUID WBC 666 /MM3 (0-10)
[2017-08-10 17:20] LABS: PLEURAL FLUID EOS 13 %; PLEURAL FLUID HISTIOCYTES 1 %; PLEURAL FLUID LYMPHS 24 %; PLEURAL FLUID MONOS 7 %; PLEURAL FLUID POLYS (SEGS) 55 %
[2017-08-10] MEDS ORDERED: SODIUM CHLORIDE 0.9% FLUSH 10 ML FLUSH IV FLUSH PRN (17:30)
[2017-08-10] MEDS ORDERED: RESP: ALBUTEROL 2.5 MG/IPRATROPIUM 0.5 MG NEB (PRN) NEB (17:30)
[2017-08-10] MEDS ORDERED: NALOXONE HCL 0.4 MG/ML AMP IV PUSH PRN (17:30)
--- NOTE | 2017-08-10 18:05 | MB ---
cc: Pete Clay MD DATE: 08/10/2017 Corrected Copy: 08/11/17 HISTORY OF PRESENT ILLNESS: Ms. Prather is a 62-year-old white female known to me since 2015, when she presented with a lung mass. She was diagnosed with adenocarcinoma at that time and underwent a right middle and lower lobectomy. She was subsequently seen by Dr. Johnson and she received 4 courses of chemotherapy, which she completed in March 2016. She did have a small pleural effusion at that time, but was followed carefully and had no progressive symptoms or signs on CT of recurrence. I last saw her as an outpatient in March, at which time, she was clinically stable, but physically disabled on the basis of her underlying COPD, with an FEV1 of only 40%. Dr. Johnson has followed her as well and, as I mentioned, to date there had been no evidence of recurrence. Her last CT scan was actually 06/23/2017, after her visit with Dr. Johnson and it was interpreted as showing a stable CT, with evidence of previous lobectomy on the right, stable pleural scarring. No evidence of mass, adenopathy or metastatic disease. The patient presented to the emergency room on 07/28/2017 with sudden onset of anterior chest discomfort. She had a CT scan. Dictation ends here. I saw her in the office today. She was clearly still having discomfort in the chest. She developed a nonproductive cough and I was concerned after reviewing the CT with radiology that she had a new accumulation of fluid in the right pleural space. We therefore sent her back to the emergency room for some stat labs and an ultrasound. She does in fact have fluid. Dr. Lowery was able to drain about 800 mL of a slightly turbid fluid from the right chest. Cultures and cytology were all sent and pending. She has had no notable fever. Her white count today is down from 20,000 to 11,000, but the concerns remain whether or not she has developing infection there or possibly even recurrent malignancy. I spoke to Dr. Grimm, the admitting hospitalist, this afternoon and requested that she asked Dr. Johnson to see her and also infectious disease in the event she needs antibiotic therapy for infection. PAST MEDICAL HISTORY: COPD. She had a right tonsillar nodule with lymph node biopsy in the past that was nonmalignant. She has also had left shoulder surgery, a hysterectomy for endometriosis, degenerative arthritis. No prior cardiovascular history. She does have underlying COPD. She was a former smoker. SOCIAL HISTORY: , living with her . Originally from this area. She worked at [employer] for about 20 years. 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 She smoked roughly 50 pack years, having quit in 2016. Occasional alcohol. CURRENT MEDICATIONS: She has been on Anoro, tramadol, Estratest, calcium, vitamin B complex, lisinopril, Xanax at bedtime, biotin, and multiple vitamins. ALLERGIES: DILAUDID, MORPHINE, CODEINE. REVIEW OF SYSTEMS: She has had this rather sharp discomfort in the substernal region. No hemoptysis. Nonproductive cough. No fever. No abdominal complaints. No nausea, vomiting or change in bowel habits. No swelling in her legs. PHYSICAL EXAMINATION: GENERAL: Awake, alert, very comfortable at rest. VITAL SIGNS: O2 saturation 98% on room air, afebrile at 97.5, 140/78, pulse 80, respirations 16-18. HEENT: Sclerae anicteric. NECK: No adenopathy in the neck or supraclavicular region. RESPIRATORY: Breath sounds are diminished at the right base, otherwise clear. No wheezes or rales. No congestion. HEART: Regular rhythm. No harsh murmur. EXTREMITIES: No edema or cyanosis. DIAGNOSTIC DATA: Chest x-ray post-thoracentesis, no pneumothorax, improved, but still blunting of the right costophrenic angle. DISCUSSION: Ms. Prather presents with pain, nonproductive cough and significant accumulation of fluid in the right chest. In light of the prior history of malignancy, it is certainly possible that she has recurrent disease. Not really acting like an empyema, but cultures are pending and infection is also a possibility. She will be admitted. We will review the results of the fluid. Ask Dr. Johnson to see her and infectious disease to monitor as well. Further diagnostic and/or therapeutic intervention will depend on the results of the studies and her ongoing clinical course. R. MD CHARLEEN Fragoso/SALOMON , 05:28 PM , 06:04 PM
--- NOTE | 2017-08-10 20:40 | HHI.HP ---
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 Oswald Clay, and review of medical records. Patient reported that about 13 days ago, she was admitted here for chest pain center because she was having sudden onset of chest pains with severe shortness of breath pleuritic in nature. She underwent cardiac workup and all was negative. She was told that she had pleuritis/pleurisy and was actually prescribed NSAIDs. However she did not was not able to take NSAIDs as she recently had lumbar surgery. She therefore went to her primary care office since she was not feeling better and was prescribed a course of steroids. She denies any fever. However still is coughing. She was able to expectorate sputum occasionally and the sputum color is also thick brownish color. She continues to have chest pains/dizziness/pleuritic pains. She finished her cholesterol off prednisone over the weekend and her symptoms were getting worse which was why she went to her dry house tender yesterday and had a chest x-ray done as outpatient at [place]. Chest x-ray revealed right pleural effusion for which she underwent thoracocentesis by interventional radiology today. Thoracocentesis resulted 800 cc of turbid brownish colored fluid. She reports that she has had thoracocentesis prior in June 2016 for similar symptoms. At that time, the studies were all negative. She has had history of lung cancer in 2016 for which she was treated with pneumonectomy, partial pericardial resection, and partial left atrial removal later Dr. Sanchez. This was followed by chemotherapy by Dr. Johnson. Review of Systems Except as stated in HPI: all other systems reviewed are Neg Past Family Social History Past Medical History htn copd lung cancer 2016- s/p right lobectomy, chemo, s/p atrium partial removed, s/p partial pericardium resection Past Surgical History lobectomy, partial pericardium and left atrium removal due to lung cancer left foot sx 1979- hysterectomy 1960 left shoulder repair jun 2017 - lumbar fusion Allergies: Coded Allergies: codeine (Verified Allergy, Severe, SOB-N/V, 08/10/17) hydromorphone (Verified Allergy, Severe, Anaphylaxis, 08/10/17) morphine (Verified Allergy, Severe, SOB-N/V, 08/10/17) propofol (Verified Allergy, Severe, Anaphylaxis, 08/10/17) Uncoded Allergies: COQ10 (Allergy, Unknown, 08/10/17) Family History mother- afib father- cardiomegaly sister- afib Social History used to smoke , quit 2 yrs ago no etoh abuse no drugs Physical Exam Vital Signs Vital Signs Date Time Temp Pulse Resp B/P (MAP) Pulse Ox O2 Delivery O2 Flow Rate FiO2 08/10/17 19:48 08/10/17 16:20 80 16 127/75 (92) 97 Room Air 08/10/17 16:15 84 16 119/69 (86) 98 Room Air 08/10/17 14:43 87 18 135/63 (87) 100 Room Air 08/10/17 14:41 87 18 100 Room Air 08/10/17 12:57 98.5 80 20 155/83 (107) 99 Physical Exam GENERAL: This is a well-nourished, well-developed patient, in no apparent distress. SKIN: No rashes, ecchymoses or lesions. Cool and dry. HEAD: Atraumatic. Normocephalic. No temporal or scalp tenderness. EYES: No scleral icterus. No injection or drainage. ENT: Nose without bleeding, purulent drainage or septal hematoma.Airway patent. NECK: Trachea midline. No JVDSupple, nontender, no meningeal signs. CARDIOVASCULAR: Regular rate and rhythm without murmurs, gallops, or rubs. RESPIRATORY: Right basilar Coarse crepitations. Right sided thoracocentesis side clean with dressing. GASTROINTESTINAL: Abdomen soft, non-tender, nondistended. . No guarding. Extremities: No calf asymmetry or edema. NEUROLOGICAL: Awake and alert. Motor and sensory grossly within normal limits.Normal speech. Laboratory Laboratory Tests Test 08/10/17 13:30 08/10/17 15:40 White Blood Count 11.1 Red Blood Count 3.82 Hemoglobin 11.2 Hematocrit 34.2 Mean Corpuscular Volume 89.6 Mean Corpuscular Hemoglobin 29.4 Mean Corpuscular Hemoglobin Concent 32.8 Red Cell Distribution Width 14.1 Platelet Count 536 Mean Platelet Volume 7.6 Neutrophils (%) (Auto) 61.6 Lymphocytes (%) (Auto) 26.2 Monocytes (%) (Auto) 8.6 Eosinophils (%) (Auto) 2.7 Basophils (%) (Auto) 0.9 Neutrophils # (Auto) 6.9 Lymphocytes # (Auto) 2.9 Monocytes # (Auto) 1.0 Eosinophils # (Auto) 0.3 Basophils # (Auto) 0.1 CBC Comment DIFF FINAL Differential Comment Prothrombin Time 9.9 Prothromb Time International Ratio 1.0 Activated Partial Thromboplast Time 25.7 Blood Urea Nitrogen 10 Creatinine 0.82 Random Glucose 89 Total Protein 7.7 Albumin 3.7 Calcium Level 9.2 Magnesium Level 2.1 Alkaline Phosphatase 97 Aspartate Amino Transf (AST/SGOT) 17 Alanine Aminotransferase (ALT/SGPT) 20 Total Bilirubin 0.4 Sodium Level 137 Potassium Level 4.0 Chloride Level 102 Carbon Dioxide Level 26.9 Anion Gap 8 Estimat Glomerular Filtration Rate 70 Total Creatine Kinase 125 Creatine Kinase MB 2.8 Troponin I LESS THAN 0.02 B-Type Natriuretic Peptide 70 Pleural Fluid pH 8.0 Pleural Fluid WBC 666 Pleural Fluid RBC 1720 Pleural Fluid Neutrophils 55 Pleural Fluid Lymphocytes 24 Pleural Fluid Monocytes 7 Pleural Fluid Eosinophils 13 Pleural Fluid Histiocytes 1 Pleural Fluid Total Protein 4.4 Pleural Fluid LDH 318 Pleural Fluid Glucose 85 Date/Time Source Procedure Growth Status 08/10/17 15:40 Fluid Pleural Fluid Fungal Smear Pending Received 08/10/17 15:40 Fluid Pleural Fluid Fungal Culture Pending Received Result Diagram: 08/10/17 1330 08/10/17 1330 Imaging Last 48 hours Impressions Thoracentesis Ultrasound 08/10/17 0000 Signed Impressions: Service Date/Time: Thursday, August 10, 2017 16:09 - CONCLUSION: Status post ultrasound guided thoracentesis. Patient complained of significant pain following fluid removal. Marko Lowery MD Chest X-Ray 08/10/17 0000 Signed Impressions: Service Date/Time: Thursday, August 10, 2017 15:53 - CONCLUSION: A decreased right pleural effusion following thoracentesis. No evidence of pneumothorax. Post surgical changes following right lobectomy again noted. MD Yulissa Bowie VTE Risk Assessment Caprini VTE Risk Assessment: Mod/High Risk (score >= 2) Caprini Risk Assessment Model Point Value = 1 Point Value = 2 Point Value = 3 Point Value = 5 Age 41-60 Minor surgery BMI > 25 kg/m2 Swollen legs Varicose veins or History of unexplained or recurrent spontaneous Oral contraceptives or hormone replacement Sepsis (< 1 month) Serious lung disease, including pneumonia (< 1 month) Abnormal pulmonary function Acute myocardial infarction Congestive heart failure (< 1 month) History of inflammatory bowel disease Medical patient at bed rest Age 61-74 Arthroscopic surgery Major open surgery (> 45 min) Laparoscopic surgery (> 45 min) Malignancy Confined to bed (> 72 hours) Immobilizing plaster cast Central venous access Age >= 75 History of VTE Family history of VTE Factor V Leiden Prothrombin [id number] Lupus anticoagulant Anticardiolipin antibodies Elevated serum homocysteine Heparin-induced thrombocytopenia Other congenital or acquired thrombophilia Stroke (< 1 month) Elective arthroplasty Hip, pelvis, or leg fracture Acute spinal cord injury (< 1 month) Prophylaxis Regimen Total Risk Factor Score Risk Level Prophylaxis Regimen 0-1 Low Early ambulation 2 Moderate Order ONE of the following: *Sequential Compression Device (SCD) *Heparin 5000 units SQ BID 3-4 Higher Order ONE of the following medications: *Heparin 5000 units SQ TID *Enoxaparin/Lovenox 40 mg SQ daily (WT < 150 kg, CrCl > 30 mL/min) *Enoxaparin/Lovenox 30 mg SQ daily (WT < 150 kg, CrCl > 10-29 mL/min) *Enoxaparin/Lovenox 30 mg SQ BID (WT < 150 kg, CrCl > 30 mL/min) AND/OR *Sequential Compression Device (SCD) 5 or more Highest Order ONE of the following medications: *Heparin 5000 units SQ TID (Preferred with Epidurals) *Enoxaparin/Lovenox 40 mg SQ daily (WT < 150 kg, CrCl > 30 mL/min) *Enoxaparin/Lovenox 30 mg SQ daily (WT < 150 kg, CrCl > 10-29 mL/min) *Enoxaparin/Lovenox 30 mg SQ BID (WT < 150 kg, CrCl > 30 mL/min) AND *Sequential Compression Device (SCD) Assessment and Plan Assessment and Plan Impression: Right pleural effusion. Empyema versus recurrent malignant effusion Leukocytosis resolving. Was even on steroids. htn copd lung cancer 2016- s/p right lobectomy, chemo, s/p atrium partial removed, s/p partial pericardium resection Plan: Patient is status post right thoracocentesis by IR. Post thoracocentesis chest x-ray personally reviewed. No evidence of pneumothorax. Both patient and her dry house tender informed me that patient had somewhat turbid brownish pleural fluid about 800 cc resulted. We'll follow up culture results. Pleural fluid cell count studies reviewed. Patient is afebrile. Infectious disease consult. Till cultures are resulted or till after infectious disease recommendations, we will hold off on antibiotics as advised by her dry house tender. Of course, if patient is clinically not doing well or look septic, we will start patient on antibiotics. Patient has also recent lumbar surgery about a month ago. We'll therefore obtain blood cultures to rule out bacteremia possible seeding. Consult patient's oncologist Dr. Johnson. Resume her home meds. DVT prophylaxis with SCD. Discussed Condition With Patient, ANDREW Coffey Twethida MD Aug 10, 2017 20:40
[2017-08-10] MEDS ORDERED: IPRATROPIUM BROMIDE 17 MCG/ACT 12.9 GM INHALER INH PRN (21:00)
[2017-08-10] MEDS ORDERED: ALPRAZolam 0.25 MG TAB PO PRN (21:00)
[2017-08-10] MEDS ORDERED: ASCORBIC ACID 2000 MG PO SCH (21:00)
[2017-08-10] MEDS ORDERED: RESP: IPRATROPIUM 0.5 MG/2.5 ML NEB NEB PRN (21:15)
[2017-08-10] MEDS: SODIUM CHLORIDE 0.9% FLUSH 10 ML FLUSH IV FLUSH SCH (21:52)
[2017-08-10] MEDS: traMADol HCL 50 MG TAB PO PRN (21:53)
[2017-08-11] VITALS (8 sets, daily range): BP systolic 95–125; BP diastolic 53–67; PULSE 72–91; RESP 16–18; TEMP 97.4–98.7; O2SAT 96–98
[2017-08-11] MEDS: ESTROGEN ESTERIF/ME TESTOST 0.625 MG/1.25 MG TAB PO SCH (09:00)
--- NOTE | 2017-08-11 09:40 | MB ---
cc: Bronson Johnson MD DATE: 08/11/2017 REASON FOR CONSULTATION: Patient with chest pain, previous history of locally advanced non-small cell lung cancer and right pleural effusion, status post thoracentesis. PATIENT PROFILE: The patient is a 62-year-old white female. She has been 3 times. She was born in [place], [place]. She has a son. 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 She does not smoke currently In the past, she had smoked a pack of cigarettes per day for 45 years. She has an occasional glass of wine. HISTORY OF PRESENT ILLNESS: The patient's history dates back to October of 2015 when she had a CAT scan of the thorax due to symptoms of a respiratory tract infection. She was found to have a peribronchial soft tissue mass or area of consolidation in the right middle lobe. A PET scan showed a right hilar mass without evidence of distant metastatic disease. On 12/17/2015 she had a right middle and right lower lobectomy and was found to have a poorly differentiated adenocarcinoma, 4.5 cm. A single hilar lymph node was negative. The tumor extended into the parietal pericardium and heart as per the operative procedure. Surgical margins were negative. Final pathology was T4 N0 M0. The patient was treated with adjuvant chemotherapy, receiving 4 cycles of cisplatinum and Alimta completed on 04/07/2016. She has had a stable right pleural effusion since surgery on 06/30/2016. She had a right thoracentesis last year and the pleural fluid was benign. At that time 400 mL were removed. She has had no evidence of recurrent lung cancer. On 06/23/[address] scan of the thorax which showed no evidence of malignancy. Her CEA has historically been normal. She was well until 07/27/2017 or 07/28/2017 when she developed pain in the mid-chest, radiating up into the neck. She had difficulty breathing. She went to the emergency room as she has never had this problem before. She had imaging studies which included a CT angiogram on 07/28/2017 which was negative for pulmonary embolus. There was evidence of a previous partial right lung resection with a small to moderate right-sided pleural effusion that was partially loculated. She underwent extensive cardiac workup including myocardial perfusion scan, EKG, stress test and her pain was not felt to be cardiac. After approximately 2 days in the hospital, she was discharged home. She saw her primary care physician, Dr. Zain Perez. Due to the persistent chest pain she was given a tapering dose of steroids. She initially improved and as the steroids were tapered the pain recurred. She saw her primary care physician, Dr. Vik Clay, yesterday and in reviewing the films, he noted the continued pleural effusion on the right side. He arranged for a thoracentesis and hospitalization. On 08/11/2007 she underwent an ultrasound-guided thoracentesis. The fluid that was removed was reddish and brown and clearly was not the usual color of a transudate. The chest discomfort that she has, which has been in the middle of the chest, is less since this effusion has has been partially drained. Her chest x-ray after the thoracentesis shows residual right pleural effusion. Other studies include a hemoglobin of 11.2, white count 11,000, platelets a 536,000, differential unremarkable. Electrolytes, BUN and creatinine, liver function tests unremarkable. BNP is 70. PAST SURGICAL HISTORY: 1. 06/29/2017 bilateral laminectomy L4-L5 with facet resection, spinal fusion for lower back pain done by Dr. Patrick Polo. 2. 12/17/2015 right thoracotomy, right middle and lower lobe resection, en bloc resection of the pericardium and left atrial margin for pathologic T4 N0 M0 poorly differentiated adenocarcinoma, tumor size 4.5 cm. 3. In 1989 the patient had a PENNY-BSO for endometriosis. 4. Left shoulder repair 1960s. 5. Repair of hammertoes, left foot 5 years ago. PAST MEDICAL HISTORY: 1. T4 N0 M0 adenocarcinoma of the lung, status post 4 cycles of adjuvant cisplatin and Alimta. 2. Chronic obstructive pulmonary disease. 3. Arthritis. MEDICATIONS PRIOR TO ADMISSION: 1. Xanax p.r.n. 2. Tessalon Perles p.r.n. 3. Flexeril. 4. Lisinopril. 5. Zantac. 6. Tramadol. 7. Inhaler. ALLERGIES: CODEINE. HYDROMORPHONE. MORPHINE. REVIEW OF SYSTEMS: No change in vision or hearing. She has had a sharp pain in the middle of the chest radiating up into the neck. She has had mild exertional shortness of breath during this time period dating back to 07/27/2017. No abdominal or pelvic pain. No melena, hematochezia, hematemesis. No weight loss. No dysuria, frequency or hematuria. No vaginal bleeding. No bone pain or weakness. PHYSICAL EXAMINATION: GENERAL: Reveals a well-appearing female. VITAL SIGNS: Blood pressure 125/70, respiratory rate 16, pulse 80, afebrile, O2 saturation is 98 percent. HEENT: Head is normocephalic. Sclerae and conjunctivae normal. Oropharynx unremarkable. LYMPHATICS: There is no cervical, supraclavicular, axillary or inguinal adenopathy. HEART: Regular rate and rhythm. LUNGS: Left lung clear, right lung decreased sounds lower one-third. ABDOMEN: Soft. No hepatosplenomegaly or masses. EXTREMITIES: No edema. MUSCULOSKELETAL: No bone pain. NEUROLOGIC: No weakness. SKIN: Unremarkable. Thoracotomy site well healed. PSYCHIATRIC: Normal. ASSESSMENT: A 62-year-old female who had the right middle and right lower lobe of the lung removed on 12/17/2015 for a pathologic T4 N0 M0 poorly differentiated adenocarcinoma. At the time of surgery, the tumor grossly involved the right hilum and invaded through the pericardium into the left atrium. This places her at enormous risk of developing recurrence, both local and systemic. She received adjuvant chemotherapy. To date she has had no reoccurrence. She has had a longstanding pleural effusion and the pleural effusion is not new. The color is surprising. A month ago, she had an operation on the lower back and recovered uneventfully. The etiology of her current effusion remains unexplained and at the present time we do not yet have a diagnosis of recurrent lung cancer. PLAN: 1. Await results of thoracentesis. 2. CT abdomen and pelvis because of her significant risk of developing metastatic disease given her original presentation. 3. Check CEA and sedimentation rate. 4. Infectious disease consult. MD AICHA Hartman/SALOMON , 08:57 AM , 09:39 AM SANNA
[2017-08-11] MEDS ORDERED: IOHEXOL 350 MG/ML 10 ML VIAL (for RAD DIAG) IVCONTRAST ONE (09:44)
--- NOTE | 2017-08-11 10:15 | RADRPT ---
EXAM DATE/TIME: 08/11/2017 09:44 [facility] COMPARISON: CT PULMONARY ANGIOGRAM, July 28, 2017, 13:39. INDICATIONS : Abdominal pain IV CONTRAST: 95 cc Omnipaque 350 (iohexol) IV ORAL CONTRAST: No oral contrast ingested. RADIATION DOSE: 7.07 CTDIvol (mGy) MEDICAL HISTORY : Cardiovascular disease. Hypertension. Metastatic, lung. SURGICAL HISTORY : Hysterectomy. Lumbar fusion ENCOUNTER: Initial ACUITY: 1 day PAIN SCALE: 4/10 LOCATION: Bilateral Abdomen TECHNIQUE: Volumetric scanning of the abdomen and pelvis was performed. Using automated exposure control and ad justment of the mA and/or kV according to patient size, radiation dose was kept as low as reasonably achievable to obtain optimal diagnostic quality images. DICOM format image data is available electro nically for review and comparison. FINDINGS: LOWER LUNGS: Right pleural effusion similar to prior.. LIVER: Homogeneous density without lesion. There is no dilation of the biliary tree. No calcified gallston es. SPLEEN: Normal size without lesion. PANCREAS: Within normal limits. KIDNEYS: Normal in size and shape. There is no mass, stone or hydronephrosis. ADRENAL GLANDS: Within normal limits. VASCULAR: There is no aortic aneurysm. BOWEL/MESENTERY: The stomach, small bowel, and colon demonstrate no acute abnormality. There is no free intraperitone al air or fluid. ABDOMINAL WALL: Within normal limits. RETROPERITONEUM: There is no lymphadenopathy. BLADDER: No wall thickening or mass. REPRODUCTIVE: Uterus surgically absent. No evidence of pelvic mass or free fluid. INGUINAL: There is no lymphadenopathy or hernia. MUSCULOSKELETAL: Previous lumbar hardware fusion. CONCLUSION: No acute CT findings in the abdomen or pelvis. Samy Villela MD on August 11, 2017 at 10:08 Board Certified Radiologist. This report was verified electronically.
[2017-08-11] MEDS: UMECLIDINIUM 62.5 MCG/VILANTEROL 25 MCG INHALER INH SCH (12:35)
[2017-08-11] MEDS: SODIUM CHLORIDE 0.9% FLUSH 10 ML FLUSH IV FLUSH SCH ×2 (12:36→20:24)
[2017-08-11] MEDS: FAMOTIDINE 20 MG TAB PO SCH ×2 (12:37→20:24)
[2017-08-11] MEDS: LISINOPRIL 10 MG TAB PO SCH (12:37)
--- NOTE | 2017-08-11 13:16 | PD.CONS ---
History of Present Illness Service Infectious disease Consult Requested By Dr Andrea Grimm Reason for Consult Evaluate patient for possible empyema Primary Care Physician Zain Perez MD Diagnoses: History of Present Illness Patient seen and examined. Records reviewed. Patient is a 62-year-old female, with history of adenocarcinoma of the right lung, had undergone right middle and lower lobectomy in 2016, presented to the hospital for further evaluation of right pleural effusion. Patient has received chemotherapy for her lung cancer and completed the course in March 2016. She has had close follow-up and has not shown any recurrent disease. Postop she had a problem with pleural effusion which was tapped, and it looks serous, and negative for malignancy. Recently over the last 2 weeks patient has developed pleuritic chest pain and she points more to the sternal region. She had some episodes of coughing prior to that but it has not been very problematic, and at time she would bring up white to yellowish phlegm. There was no associated fever or chills or sweats. She has not had any episode of vomiting or any GI symptoms. She has not had any significant congestion or other respiratory symptom. She has not been around anyone sick, no exposure to any sick child, and no pets. The pain was very severe, so she presented to the emergency room the second week of July. CTA at that time did not reveal any pulmonary embolism, it showed the postoperative changes from her prior lung surgery, and the presence of a loculated right pleural effusion which was described as moderate in size. She had cardiac workup as well and that was negative. She was discharged, and she had a follow-up with her primary care physician who placed her on some steroids with some partial relief. She was seen by her miter cutter, and chest x-ray was done again and it showed effusion , and she was advised to go to the hospital for further evaluation of her effusion. Patient underwent thoracenteses, and the fluid was reportedly cloudy, turbid, and has a brown color to it. Since the fluid was drained, her chest pain has resolved completely. She has been afebrile. Her WBC during her ED visit was 19 ,000, and on this admission is down to 11,000. She has not been on any antibiotics. Infectious disease consultation has been requested to evaluate the patient for possible empyema. Review of Systems Constitutional: DENIES: Fever, Weight loss, Chills Eyes: DENIES: Eye pain Ears, nose, mouth, throat: DENIES: Nasal discharge, Oral lesions, Throat pain, Hoarseness, Sinus Pain Respiratory: COMPLAINS OF: Cough, Sputum production, Shortness of breath, DENIES: Hemoptysis Cardiovascular: COMPLAINS OF: Chest pain, DENIES: Palpitations, Syncope, Dyspnea on Exertion, Lower Extremity Edema Gastrointestinal: DENIES: Abdominal pain, Diarrhea, Nausea, Vomiting, Difficulty Swallowing Genitourinary: DENIES: Urinary frequency, Urgency, Dysuria Musculoskeletal: DENIES: Joint pain, Muscle aches, Joint Swelling, Back pain Integumentary: DENIES: Rash Hematologic/lymphatic: DENIES: Bruising, Lymphadenopathy Immunologic/allergic: DENIES: Urticaria Neurologic: DENIES: Localized weakness Psychiatric: DENIES: Hallucinations Past Family Social History Allergies: Coded Allergies: codeine (Verified Allergy, Severe, SOB-N/V, 08/10/17) hydromorphone (Verified Allergy, Severe, Anaphylaxis, 08/10/17) morphine (Verified Allergy, Severe, SOB-N/V, 08/10/17) propofol (Verified Allergy, Severe, Anaphylaxis, 08/10/17) Uncoded Allergies: COQ10 (Allergy, Unknown, 08/10/17) Past Medical History T4 N0 M0 adenocarcinoma of the lung, status post 4 cycles of adjuvant cisplatin and Alimta. Chronic obstructive pulmonary disease. Arthritis. Degenerative disc disease Spinal stenosis lumbar and sacral region, with radiculopathy Past Surgical History 06/29/2017 bilateral laminectomy L4-L5 with facet resection, spinal fusion for lower back pain done by Dr. Patrick Polo. 12/17/2015 right thoracotomy, right middle and lower lobe resection, en bloc resection of the pericardium and left atrial margin for pathologic T4 N0 M0 poorly differentiated adenocarcinoma, tumor size 4.5 cm. In 1989 the patient had a PENNY-BSO for endometriosis. Left shoulder repair 1960s. Repair of hammertoes, left foot 5 years ago. Active Ordered Medications Abdomen/Pelvis CT 08/11/17 0000 Signed Impressions: Service Date/Time: Friday, August 11, 2017 09:44 - CONCLUSION: No acute CT findings in the abdomen or pelvis. Samy Villela MD Thoracentesis Ultrasound 08/10/17 0000 Signed Impressions: Service Date/Time: Thursday, August 10, 2017 16:09 - CONCLUSION: Status post ultrasound guided thoracentesis. Patient complained of significant pain following fluid removal. Marko Lowery MD Chest X-Ray 08/10/17 0000 Signed Impressions: Service Date/Time: Thursday, August 10, 2017 15:53 - CONCLUSION: A decreased right pleural effusion following thoracentesis. No evidence of pneumothorax. Post surgical changes following right lobectomy again noted. Marko Lowery MD Family History Noncontributory Social History used to smoke , quit 2 yrs ago no etoh abuse no drugs Retired, used to work at [employer] Physical Exam Vital Signs Vital Signs Date Time Temp Pulse Resp B/P (MAP) Pulse Ox O2 Delivery O2 Flow Rate FiO2 08/11/17 11:09 97.6 78 18 109/59 (76) 98 08/11/17 07:30 97.6 79 16 125/67 (86) 98 08/11/17 04:44 97.4 76 17 107/58 (74) 96 08/11/17 04:42 72 08/11/17 00:56 98.7 82 16 95/53 (67) 97 08/11/17 00:02 76 08/10/17 19:48 08/10/17 16:20 80 16 127/75 (92) 97 Room Air 08/10/17 16:15 84 16 119/69 (86) 98 Room Air 08/10/17 14:43 87 18 135/63 (87) 100 Room Air 08/10/17 14:41 87 18 100 Room Air Physical Exam GENERAL: Patient is a well-nourished, well-developed female, awake and alert , not in respiratory distress. SKIN: Cool and dry. No generalized rash, no ecchymoses and no evidence of embolic lesions. HEAD: Atraumatic. Normocephalic. No temporal wasting, or tenderness. EYES: Pronghorn conjunctiva. No petechia or hemorrhage. Pupils equal, round and reactive to light. Extraocular movements full and intact. No scleral icterus. No injection or drainage. EARS, NOSE AND THROAT: Nose without bleeding or purulent nasal discharge. No sinus tenderness. Mucous membranes pink and moist. No oral lesions noted. No exudate. No oral thrush. NECK: Trachea midline. Supple and not tender, no meningeal signs CARDIOVASCULAR: Regular rate and rhythm. No murmurs, rubs or gallops heard RESPIRATORY: Decreased BS R base, with decreased vocal fremitus, no E to A changes. Coarse BS ABDOMEN: Soft, non-tender, nondistended. Bowel sounds present and normoactive. No guarding. No rebound. No organomegaly. EXTREMITIES: No clubbing, cyanosis, or edema.No joint effusion, has good ROM. No calf tenderness. Well perfused and warm. NEUROLOGICAL: Awake and alert. Cranial nerves grossly intact. Motor grossly within normal limits. PSYCHIATRIC: Normal affect, calm and cooperative. LINE: No evidence of infection Laboratory Laboratory Tests Test 08/10/17 13:30 08/10/17 15:40 White Blood Count 11.1 Red Blood Count 3.82 Hemoglobin 11.2 Hematocrit 34.2 Mean Corpuscular Volume 89.6 Mean Corpuscular Hemoglobin 29.4 Mean Corpuscular Hemoglobin Concent 32.8 Red Cell Distribution Width 14.1 Platelet Count 536 Mean Platelet Volume 7.6 Neutrophils (%) (Auto) 61.6 Lymphocytes (%) (Auto) 26.2 Monocytes (%) (Auto) 8.6 Eosinophils (%) (Auto) 2.7 Basophils (%) (Auto) 0.9 Neutrophils # (Auto) 6.9 Lymphocytes # (Auto) 2.9 Monocytes # (Auto) 1.0 Eosinophils # (Auto) 0.3 Basophils # (Auto) 0.1 CBC Comment DIFF FINAL Differential Comment Prothrombin Time 9.9 Prothromb Time International Ratio 1.0 Activated Partial Thromboplast Time 25.7 Blood Urea Nitrogen 10 Creatinine 0.82 Random Glucose 89 Total Protein 7.7 Albumin 3.7 Calcium Level 9.2 Magnesium Level 2.1 Alkaline Phosphatase 97 Aspartate Amino Transf (AST/SGOT) 17 Alanine Aminotransferase (ALT/SGPT) 20 Total Bilirubin 0.4 Sodium Level 137 Potassium Level 4.0 Chloride Level 102 Carbon Dioxide Level 26.9 Anion Gap 8 Estimat Glomerular Filtration Rate 70 Total Creatine Kinase 125 Creatine Kinase MB 2.8 Troponin I LESS THAN 0.02 B-Type Natriuretic Peptide 70 Pleural Fluid pH 8.0 Pleural Fluid WBC 666 Pleural Fluid RBC 1720 Pleural Fluid Neutrophils 55 Pleural Fluid Lymphocytes 24 Pleural Fluid Monocytes 7 Pleural Fluid Eosinophils 13 Pleural Fluid Histiocytes 1 Pleural Fluid Total Protein 4.4 Pleural Fluid LDH 318 Pleural Fluid Glucose 85 Date/Time Source Procedure Growth Status 08/10/17 22:45 Blood Peripheral Aerobic Blood Culture - Preliminary NO GROWTH IN 1 DAY Resulted 08/10/17 22:45 Blood Peripheral Anaerobic Blood Culture - Preliminary NO GROWTH IN 1 DAY Resulted 08/10/17 15:40 Fluid Pleural Fluid Fungal Smear - Final NO FUNGAL ELEMENTS SEEN. Resulted 08/10/17 15:40 Fluid Pleural Fluid Fungal Culture Pending Resulted Result Diagram: 08/10/17 1330 08/10/17 1330 Imaging RADIOLOGY STUDIES/FILMS REVIEWED Abdomen/Pelvis CT 08/11/17 0000 Signed Impressions: Service Date/Time: Friday, August 11, 2017 09:44 - CONCLUSION: No acute CT findings in the abdomen or pelvis. Samy Villela MD Thoracentesis Ultrasound 08/10/17 0000 Signed Impressions: Service Date/Time: Thursday, August 10, 2017 16:09 - CONCLUSION: Status post ultrasound guided thoracentesis. Patient complained of significant pain following fluid removal. Marko Lowery MD Chest X-Ray 08/10/17 0000 Signed Impressions: Service Date/Time: Thursday, August 10, 2017 15:53 - CONCLUSION: A decreased right pleural effusion following thoracentesis. No evidence of pneumothorax. Post surgical changes following right lobectomy again noted. Marko Lowery MD Assessment and Plan Assessment and Plan Impression R pleural effusion, analysis shows exudative, etiology? - no other S/Sxs to suggest PNA - Hx adnoCA lung CA, previous surgery and XRT, ?recurrent malignancy Known COPD Recommendation Continue top monitor off Abx Follow pleural fluid analysis results, cultures and cytology Monitor progress I will follow along with you and determine need for Abx Thank you for this consultation Discussed Condition With Explained plan to the patient Mar Cevallos MD Aug 11, 2017 13:16
[2017-08-11 14:04] LABS: AUTOMATED NEUTROPHIL # 7.2 TH/MM3 (1.8-7.7); BASOPHIL # 0.1 TH/MM3 (0-0.2); BASOPHIL % 0.5 % (0.0-2.0); EOSINOPHIL # 0.3 TH/MM3 (0-0.4); EOSINOPHIL % 2.2 % (0.0-4.0); HEMATOCRIT 32.2 % (35.0-46.0); HEMOGLOBIN 10.7 GM/DL (11.6-15.3); LYMPHOCYTE # 2.5 TH/MM3 (1.0-4.8); MEAN CORPUSCULAR HEMOGLOBIN 29.3 PG (27.0-34.0); MEAN CORPUSCULAR HGB CONC 33.3 % (32.0-36.0); MEAN PLATELET VOLUME 7.3 FL (7.0-11.0); MONO % 11.2 % (0.0-8.0); MONOCYTE # 1.3 TH/MM3 (0-0.9); NEUT % 64.1 % (16.0-70.0); PLATELET COUNT 476 TH/MM3 (150-450); RED BLOOD COUNT 3.66 MIL/MM3 (4.00-5.30); WHITE BLOOD COUNT 11.2 TH/MM3 (4.0-11.0)
[2017-08-11 14:40] LABS: BICARBONATE 27.3 MEQ/L (21.0-32.0); CALCIUM 8.6 MG/DL (8.5-10.1); CREATININE 0.74 MG/DL (0.50-1.00)
[2017-08-11] MEDS: traMADol HCL 50 MG TAB PO PRN (16:40)
--- NOTE | 2017-08-11 18:29 | HHI.PR ---
Subjective Remarks Patient says she is feeling well. Denies any chest pain or shortness of breath. Denies any nausea or vomiting. Objective Vital Signs Date Time Temp Pulse Resp B/P (MAP) Pulse Ox O2 Delivery O2 Flow Rate FiO2 08/11/17 15:24 98.0 91 17 106/60 (75) 97 08/11/17 11:09 97.6 78 18 109/59 (76) 98 08/11/17 07:30 97.6 79 16 125/67 (86) 98 08/11/17 04:44 97.4 76 17 107/58 (74) 96 08/11/17 04:42 72 08/11/17 00:56 98.7 82 16 95/53 (67) 97 08/11/17 00:02 76 08/10/17 19:48 Result Diagram: 08/11/17 1332 08/11/17 1332 Objective Remarks GENERAL: Sitting up in bed. Appears comfortable. SKIN: Warm and dry. HEAD: Normocephalic. EYES: No scleral icterus. No injection or drainage. NECK: Supple, trachea midline. No JVD or lymphadenopathy. CARDIOVASCULAR: Regular rate and rhythm without murmurs, gallops, or rubs. RESPIRATORY: Breath sounds equal bilaterally. No accessory muscle use. Right posterior chest with dressing clean dry and intact. GASTROINTESTINAL: Abdomen soft, non-tender, nondistended. MUSCULOSKELETAL: No cyanosis, or edema. Lower spine with incisions healing well. BACK: Nontender without obvious deformity. No CVA tenderness. A/P Assessment and Plan //R pleural effusion = Exudative =Hx adnoCA lung CA, previous surgery and XRT. = Possible recurrent malignancy = Possible recurrence of malignancy. Appreciate oncology and infectious disease consultation. Follow-up cytology and cultures from pleural fluid. = CT abdomen and pelvis pending for oncology workup // COPD. No acute exacerbation. Nebs as needed. //Hypertension. Continue to monitor. Discharge Planning Infectious disease and oncology following Pending pleural fluid evaluation. Reinaldo Strong MD Aug 11, 2017 18:29
--- NOTE | 2017-08-11 23:00 | EKG ---
Date Performed: 08/10/2017 Time Performed: 13:28:26 PTAGE: 62 years EKG: Sinus rhythm NORMAL ECG PREVIOUS TRACING : 07/28/2017 18.39 Since the previous tracing, no significant change noted DOCTOR: Yasmin Barnes Interpretating Date/Time 08/11/2017 22:59:11
[2017-08-12] VITALS (9 sets, daily range): BP systolic 83–121; BP diastolic 50–59; PULSE 66–82; RESP 16–18; TEMP 97.8–98.3; O2SAT 96–97
[2017-08-12 07:00] LABS: AUTOMATED NEUTROPHIL # 7.3 TH/MM3 (1.8-7.7); BASOPHIL # 0.1 TH/MM3 (0-0.2); BASOPHIL % 0.9 % (0.0-2.0); EOSINOPHIL # 0.4 TH/MM3 (0-0.4); EOSINOPHIL % 3.1 % (0.0-4.0); HEMATOCRIT 35.9 % (35.0-46.0); HEMOGLOBIN 11.8 GM/DL (11.6-15.3); LYMPH % 28.9 % (9.0-44.0); LYMPHOCYTE # 3.7 TH/MM3 (1.0-4.8); MEAN CELL VOLUME 89.5 FL (80.0-100.0); MEAN CORPUSCULAR HEMOGLOBIN 29.4 PG (27.0-34.0); MEAN CORPUSCULAR HGB CONC 32.8 % (32.0-36.0); MEAN PLATELET VOLUME 7.9 FL (7.0-11.0); MONOCYTE # 1.3 TH/MM3 (0-0.9); NEUT % 57.1 % (16.0-70.0); PLATELET COUNT 559 TH/MM3 (150-450); RED BLOOD COUNT 4.01 MIL/MM3 (4.00-5.30); RED CELL DISTRIBUTION WIDTH 13.9 % (11.6-17.2); WHITE BLOOD COUNT 12.8 TH/MM3 (4.0-11.0)
[2017-08-12 07:39] LABS: BICARBONATE 28.6 MEQ/L (21.0-32.0); CREATININE 1.06 MG/DL (0.50-1.00)
[2017-08-12] MEDS: LISINOPRIL 10 MG TAB PO SCH (09:08)
[2017-08-12] MEDS: FAMOTIDINE 20 MG TAB PO SCH (10:00)
[2017-08-12] MEDS: SODIUM CHLORIDE 0.9% FLUSH 10 ML FLUSH IV FLUSH SCH (10:00)
[2017-08-12] MEDS: ESTROGEN ESTERIF/ME TESTOST 0.625 MG/1.25 MG TAB PO SCH (10:00)
[2017-08-12] MEDS: UMECLIDINIUM 62.5 MCG/VILANTEROL 25 MCG INHALER INH SCH (10:01)
[2017-08-12 12:30] LABS: AMYLASE BODY FLUID 7 U/L; AMYLASE BODY FLUID TYPE PLEURAL
--- NOTE | 2017-08-12 15:01 | HHI.PR ---
Subjective Remarks Says she is feeling well. Denies any chest pain or shortness of breath. Denies any nausea vomiting. Feels like going home. Objective Vital Signs Date Time Temp Pulse Resp B/P (MAP) Pulse Ox O2 Delivery O2 Flow Rate FiO2 08/12/17 11:56 97.8 82 16 121/59 (79) 97 08/12/17 08:05 75 08/12/17 07:38 98.0 77 16 96/52 (67) 96 08/12/17 05:10 112/56 (74) 08/12/17 04:44 98.1 68 18 83/51 (62) 96 08/12/17 03:45 66 08/12/17 03:07 98.3 71 17 93/54 (67) 96 08/12/17 00:15 68 08/11/17 20:00 82 08/11/17 15:24 98.0 91 17 106/60 (75) 97 Result Diagram: 08/12/17 0602 08/12/17 0602 Objective Remarks GENERAL: Sitting up in bed. Appears comfortable. Alert and oriented 4 SKIN: Warm and dry. HEAD: Normocephalic. EYES: No scleral icterus. No injection or drainage. NECK: Supple, trachea midline. No JVD. CARDIOVASCULAR: Regular rate and rhythm without murmurs, gallops, or rubs. RESPIRATORY: Breath sounds equal bilaterally. No accessory muscle use. Right posterior chest with dressing clean dry and intact. GASTROINTESTINAL: Abdomen soft, non-tender, nondistended. MUSCULOSKELETAL: No cyanosis, or edema. Lower spine with incisions healing well. BACK: Nontender without obvious deformity. No CVA tenderness. A/P Assessment and Plan //R pleural effusion = Exudative =Hx adnoCA lung CA, previous surgery and XRT. = Possible recurrent malignancy = Possible recurrence of malignancy. Appreciate oncology and infectious disease consultation. Follow-up cytology and cultures from pleural fluid. = CT abdomen and pelvis pending for oncology workup = CT abdomen pelvis without any malignancy. = No evidence of infection. Microbiology negative at this time. Follow-up with oncology and pulmonology for cytology. // COPD. No acute exacerbation. Nebs as needed. //Hypertension. Continue to monitor. Discharge Planning Follow with oncology and pulmonology as outpatient. Cytology, final cultures are pending. Patient conveys understanding Reinaldo Strong MD Aug 12, 2017 15:01
--- NOTE | 2017-08-12 15:04 | HHI.DS ---
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 Oswald Clay, and review of medical records. Patient reported that about 13 days ago, she was admitted here for chest pain center because she was having sudden onset of chest pains with severe shortness of breath pleuritic in nature. She underwent cardiac workup and all was negative. She was told that she had pleuritis/pleurisy and was actually prescribed NSAIDs. However she did not was not able to take NSAIDs as she recently had lumbar surgery. She therefore went to her primary care office since she was not feeling better and was prescribed a course of steroids. She denies any fever. However still is coughing. She was able to expectorate sputum occasionally and the sputum color is also thick brownish color. She continues to have chest pains/dizziness/pleuritic pains. She finished her cholesterol off prednisone over the weekend and her symptoms were getting worse which was why she went to her overhead cleaner maintainer yesterday and had a chest x-ray done as outpatient at [place]. Chest x-ray revealed right pleural effusion for which she underwent thoracocentesis by interventional radiology today. Thoracocentesis resulted 800 cc of turbid brownish colored fluid. She reports that she has had thoracocentesis prior in June 2016 for similar symptoms. At that time, the studies were all negative. She has had history of lung cancer in 2016 for which she was treated with pneumonectomy, partial pericardial resection, and partial left atrial removal later Dr. Sanchez. This was followed by chemotherapy by Dr. Johnson. CBC/BMP: 08/12/17 0602 08/12/17 0602 Significant Findings Laboratory Tests Test 08/10/17 13:30 08/10/17 15:40 08/11/17 13:32 08/12/17 06:02 White Blood Count 11.1 TH/MM3 (4.0-11.0) 11.2 TH/MM3 (4.0-11.0) 12.8 TH/MM3 (4.0-11.0) Red Blood Count 3.82 MIL/MM3 (4.00-5.30) 3.66 MIL/MM3 (4.00-5.30) Hemoglobin 11.2 GM/DL (11.6-15.3) 10.7 GM/DL (11.6-15.3) Hematocrit 34.2 % (35.0-46.0) 32.2 % (35.0-46.0) Platelet Count 536 TH/MM3 (150-450) 476 TH/MM3 (150-450) 559 TH/MM3 (150-450) Monocytes (%) (Auto) 8.6 % (0.0-8.0) 11.2 % (0.0-8.0) 10.0 % (0.0-8.0) Monocytes # (Auto) 1.0 TH/MM3 (0-0.9) 1.3 TH/MM3 (0-0.9) 1.3 TH/MM3 (0-0.9) Estimat Glomerular Filtration Rate 70 ML/MIN (>89) 79 ML/MIN (>89) 52 ML/MIN (>89) Troponin I LESS THAN 0.02 NG/ML Pleural Fluid WBC 666 /MM3 (0-10) Pleural Fluid RBC 1720 /MM3 (0-0) Erythrocyte Sedimentation Rate 47 mm/hr (0-30) Random Glucose 112 MG/DL (74-106) Creatinine 1.06 MG/DL (0.50-1.00) Sodium Level 134 MEQ/L (136-145) Hospital Course //R pleural effusion = Exudative =Hx adnoCA lung CA, previous surgery and XRT. = Possible recurrent malignancy = Possible recurrence of malignancy. Appreciate oncology and infectious disease consultation. Follow-up cytology and cultures from pleural fluid. = CT abdomen and pelvis pending for oncology workup = CT abdomen pelvis without any malignancy. = No evidence of infection. Microbiology negative at this time. Follow-up with oncology and pulmonology for cytology. // COPD. No acute exacerbation. Nebs as needed. //Hypertension. Continue to monitor. Discharge Planning Follow with oncology and pulmonology as outpatient. Cytology, final cultures are pending. Patient conveys understanding Pt Condition on Discharge: Good Discharge Disposition: Discharge Home Discharge Time: > 30 minutes Discharge Instructions DIET: Follow Instructions for: Heart Healthy Diet Activities you can perform: Weight Bearing as [place], See Additionl Instruction Other Activity Instructions: Continue postsurgical recommendations Follow up Referrals: Oncology/Hematology - 1 Week with Bronson Johnson MD PCP Follow-up - 1 Week with Zain Perez MD Pulmonology - 1 Week with Ptee Clay MD Continued Medications: Alprazolam (Xanax) 0.25 Mg Tab 0.25 MG PO HS PRN for ANXIETY, TAB 0 Refills Ascorbic Acid ER (Vitamin C ER) 500 Mg Jordan 2000 MG PO BID for Nutritional Supplement, TAB 0 Refills B-Complex Vitamins (B Complex) 1 Cap 1 CAP PO DAILY for Nutritional Supplement, #30 CAP 0 Refills Benzonatate (Tessalon Perles) 100 Mg Cap 100 MG PO TID PRN for COUGH, CAP 0 Refills Biotin (Biotin) 5 Mg Cap 5000 MCG PO DAILY for Nutritional Supplement, #1 BOTTLE 0 Refills Calcium Carbonate-Cholecalciferol (Calcium 600 with Vitamin D) 600-400 mg-Unit Tab 1 TAB PO DAILY for Calcium Supplement, TAB 0 Refills Cyanocobalamin (B-12) 1,000 Mcg Subl 1000 MCG SL BID for Nutritional Supplement, TAB.SL 0 Refills Cyclobenzaprine (Flexeril) 10 Mg Tab 10 MG PO HS PRN for SPASM, #90 TAB 0 Refills Estrogen,Dali/Me-Testosterone (Eemt Hs 0.625-1.25 mg Tablet) 0.625 Mg-1.25 Mg Tablet 1 TAB PO DAILY Ipratropium HFA 12.9 GM Inh (Atrovent HFA 12.9 GM Inh) 17 Mcg/Act Aer 2 PUFF INH BID PRN for SHORTNESS OF BREATH, #1 INHALER 0 Refills Lisinopril (Lisinopril) 10 Mg Tab 10 MG PO DAILY, #30 TAB 0 Refills Ranitidine (Ranitidine Maximum Strength) 150 Mg Tab 150 MG PO BID, TAB 0 Refills Tramadol (Ultram) 50 Mg Tab 50 MG PO Q4H PRN for Pain, #50 TAB Umeclidinium-Vilanterol Inh (Anoro Ellipta Inh) 62.5-25 Mcg/Act Aero 1 PUFF INH DAILY for COPD, #1 INHALER 0 Refills Reinaldo Strong MD Aug 12, 2017 15:04
== END 2017-08-12 17:02 | disposition home or self-care (01) ==
LOC: NED 12:50 → NEDA 17:10 → NEPGCP 19:50
PROVIDERS: ADMIT Internal Medicine; ATTEND Internal Medicine
DX: J90 Pleural effusion, not elsewhere classified (principal); R10.9 Unspecified abdominal pain; I10 Essential (primary) hypertension; J44.9 Chronic obstructive pulmonary disease, unspecified; K21.9 Gastro-esophageal reflux disease without esophagitis; M48.061 Spinal stenosis, lumbar region without neurogenic claudication; Z85.118 Personal history of other malignant neoplasm of bronchus and lung; Z87.891 Personal history of nicotine dependence; Z98.1 Arthrodesis status
CPT/HCPCS: 32555; 71045; 74177; 80048; 80053; 82150; 82378; 82550; 82552; 82945; 83615; 83735; 83880; 83986; 84157; 84484; 85025; 85610; 85652; 85730; 87015; 87040; 87070; 87102; 87116; 87205; 87206; 88112; 88305; 89051; 93005; 99285; C1729; G0378; Q9967

== ENCOUNTER → 2017-09-21 | Outpatient (CLI) | payer OTHER ==
[~2017-09-21] MED LIST changes: +ALPR.25 PO; -NUCY50TA10 PO
== END ==
LOC: CLAB 10:33
PROVIDERS: ATTEND Thoracic Surgery (Cardiothoracic Vascular Surgery)
DX: R07.9 Chest pain, unspecified (principal); R06.02 Shortness of breath
CPT/HCPCS: 36415; 83880

== ENCOUNTER → 2017-09-29 | Outpatient (CLI) | payer OTHER | LOC: HRSP 10:49 | PROVIDERS: ATTEND Thoracic Surgery (Cardiothoracic Vascular Surgery) | DX: C34.01 Malignant neoplasm of right main bronchus (principal) | CPT/HCPCS: 94010 ==

== ENCOUNTER 2018-05-06 21:56 | Inpatient (IN) ==
[2018-05-06] MEDS ORDERED: Dexamethasone Inj 20 MG/5 ML Vial IV.PUSH ONE (22:13)
[2018-05-06] MEDS ORDERED: levETIRAcetam 1000mg/100mL Inj 100 ML IV.SIG ONE (22:38)
--- NOTE | 2018-05-06 22:38 | ED ---
HPI General Chief complaint: Medical Clearance Stated complaint: sent-negin on brain Time Seen by Provider: 05/06/18 22:23 Source: patient Mode of arrival: ambulatory Limitations: no limitations History of Present Illness HPI Narrative: 62-year-old female patient with history of lung adenocarcinoma with metastases to the pericardium, has been having right-sided headaches for about a week, difficulty with reading, writing, and stumbling, had an MRI done today which shows metastases to the brain with a 9 mm rightward shift. Patient is sent in by Dr. Johnson, her oncologist. He would like neurosurgery consult as well as radiation on for the patient to get a dose of Decadron. Modifying Factors: None Associated Signs & Symptoms: Sent in by oncologist for lung cancer and now has brain metastases Risk Factors: None Home Medications Medication Instructions Recorded Confirmed B Complex 1 tab PO DAILY 05/06/18 05/06/18 alprazolam [Xanax] 0.25 mg PO BID PRN 05/06/18 05/06/18 ascorbic acid (vitamin C) [Vitamin 2 g PO DAILY 05/06/18 05/06/18 C] benzonatate [Tessalon Perles] 200 mg PO TID PRN 05/06/18 05/06/18 biotin 5,000 mcg PO DAILY 05/06/18 05/06/18 calcium carbonate-vitamin D3 1 tab PO BID 05/06/18 05/06/18 [Calcium 600 + D(3)] cyanocobalamin (vitamin B-12) 2,000 mcg PO DAILY 05/06/18 05/06/18 [Vitamin B-12] cyclobenzaprine 10 mg PO HS PRN 05/06/18 05/06/18 estrogens-methyltestosterone 1 tab PO EVERY OTHER DAY 05/06/18 05/06/18 ibuprofen 800 mg PO QID PRN 05/06/18 05/06/18 ipratropium bromide [Atrovent HFA] 2 puff INHALATION Q6H PRN 05/06/18 05/06/18 lisinopril 10 mg PO DAILY 05/06/18 05/06/18 ranitidine HCl 150 mg PO DAILY 05/06/18 05/06/18 tapentadol [Nucynta] 50 mg PO Q6H PRN 05/06/18 05/06/18 tramadol 50 mg PO Q6H PRN 05/06/18 05/06/18 umeclidinium-vilanterol [Anoro 1 inh INHALATION Q24H 05/06/18 05/06/18 Ellipta] yeast [Mcfadden's Yeast] 2,000 mg PO DAILY 05/06/18 05/06/18 Allergies Allergy/AdvReac Type Severity Reaction Status Date / Time codeine Allergy Severe SOB-N/V Verified 05/06/18 22:37 hydromorphone Allergy Severe Anaphylaxis Verified 05/06/18 22:37 morphine Allergy Severe SOB-N/V Verified 05/06/18 22:37 propofol Allergy Severe Anaphylaxis Verified 05/06/18 22:37 COQ10 Allergy Intermediate Hives Uncoded 05/06/18 22:37 Review of Systems ROS: all other systems reviewed are negative PMFSH History History Provided By: Patient Medical History Medical History Adenocarcinoma (Acute) Surgical History Surgical History S/P foot surgery, left (Acute) Social History Social History Smoking Status: Current some day smoker Tobacco Type: Cigarettes How Often Do You Have a Drink Containing Alcohol: 2 to 3 times a week Recent Travel in [facility] within the Last 8 Weeks: No Recent Out of Country Travel within the Last 8 Weeks: No Exam Narrative Exam Narrative: GENERAL: Well-developed elderly white female patient currently in mild distress. Awake and oriented x3. SKIN: Warm and dry. HEAD: Atraumatic. Normocephalic. EYES: Pupils equal and round. No scleral icterus. No injection or drainage. ENT: No nasal bleeding or discharge. Mucous membranes pink and moist. NECK: Trachea midline. No JVD. CARDIOVASCULAR: Regular rate and rhythm. RESPIRATORY: No accessory muscle use. Clear to auscultation. Breath sounds equal bilaterally. GASTROINTESTINAL: Abdomen soft, non-tender, nondistended. Hepatic and splenic margins not palpable. MUSCULOSKELETAL: Extremities without clubbing, cyanosis, or edema. No obvious deformities. NEUROLOGICAL: Awake and alert. No obvious cranial nerve deficits. Motor grossly within normal limits. Five out of 5 muscle strength in the arms and legs. Normal speech. PSYCHIATRIC: Appropriate mood and affect; insight and judgment normal. Course Initial Documented Vital Signs Temperature 97.7 F 05/06/18 22:04 Pulse Rate 112 H 05/06/18 22:04 Respiratory Rate 17 05/06/18 22:04 Blood Pressure 215/99 H 05/06/18 22:04 Pulse Oximetry 97 05/06/18 22:04 Last Documented Vital Signs Temperature 97.7 F 05/06/18 22:04 Pulse Rate 85 05/06/18 22:38 Respiratory Rate 18 05/06/18 22:38 Blood Pressure 152/79 H 05/06/18 22:38 Pulse Oximetry 97 05/06/18 22:39 Medical Decision Making MDM Narrative Medical decision making narrative: Decadron 10 was started in the ER. Case was discussed with Dr. Zambrano who would like to also give her Keppra and wants her to be admitted to the [facility] under sugar sampler service. He states he wants to keep her n.p.o. after midnight and will talk to her in the morning for further treatment, patient will likely need surgical care. Case is discussed with Dr. Castro for admission to the ICU. Aggregate critical care time was 30 minutes. Time to perform other separately billable procedures was not included in the critical care time. My time did not include minutes spent treating any other patients simultaneously or on activities that did not directly contribute to the patient's treatment. The services I provided to this patient were to treat and/or prevent clinically significant deterioration that could result in: Worsening mass-effect, herniation, I provided critical care services requiring my management, as noted below: Chart data review, documentation time, medication orders and management, vital sign assessments/reviewing monitor data, ordering and reviewing lab tests, ordering and interpreting/reviewing x-rays and diagnostic studies, care of the patient and discussion of the patient with the admitting physicians. Medical Screen Exam Complete: Yes Emergency Medical Condition: Yes Lab Data Result diagrams: 05/06/18 22:40 05/06/18 22:40 Lab Results 05/06/18 05/06/18 Range/Units 22:40 22:40 WBC 9.3 (4.0-11.0) th/mm3 RBC 4.04 (4.00-5.30) mil/mm3 Hgb 12.6 (11.6-15.3) gm/dL Hct 36.5 (35.0-46.0) % MCV 90.5 (80.0-100.0) fL MCH 31.2 (27.0-34.0) pg MCHC 34.5 (32.0-36.0) % RDW 13.3 (11.6-17.2) % Plt Count 334 (150-450) th/mm3 MPV 7.9 (7.0-11.0) fL Neut % (Auto) 58.6 (16.0-70.0) % Lymph % (Auto) 28.2 (9.0-44.0) % [place] % (Auto) 10.1 H (0.0-8.0) % Eos % (Auto) 2.2 (0.0-4.0) % Baso % (Auto) 0.9 (0.0-2.0) % Neut # (Auto) 5.5 (1.8-7.7) th/mm3 Lymph # (Auto) 2.6 (1.0-4.8) th/mm3 [place] # (Auto) 0.9 (0.0-0.9) th/mm3 Eos # (Auto) 0.2 (0.0-0.4) th/mm3 Baso # (Auto) 0.1 (0.0-0.2) th/mm3 WBC Differential . Differential Comment Auto diff final PT 9.9 (9.8-11.6) sec INR 1.0 Ratio APTT 25.4 (23.4-31.7) sec Discharge Plan Discharge Disposition Patient Disposition: ED Admit(ED Internal Use Only) Discharge Condition Condition: Critical Discharge Order Discharge Orders: ED Use Only Admit Order (Routine); Ordered 05/06/18 Ordered By: Ancelmo Lan Discharge Details Anticipated Discharge Date: 05/06/18 Diagnosis: Brain metastases Physicians Team ED Provider: Ancelmo Lan Primary Care Provider: Zain Perez Rxs /Orders / Referrals /Forms Prescriptions: No Action B Complex 1 tab PO DAILY RF: 0 cyclobenzaprine 10 mg Tablet 10 mg PO HS PRN (Reason: Pain) RF: 0 estrogens-methyltestosterone 0.625-1.25 mg Tablet 1 tab PO EVERY OTHER DAY RF: 0 ibuprofen 800 mg Tablet 800 mg PO QID PRN (Reason: Pain) RF: 0 cyanocobalamin (vitamin B-12) [Vitamin B-12] 1,000 mcg Tablet 2,000 mcg PO DAILY RF: 0 tramadol 50 mg Tablet 50 mg PO Q6H PRN (Reason: Pain) RF: 0 alprazolam [Xanax] 0.25 mg Tablet 0.25 mg PO BID PRN (Reason: Anxiety) RF: 0 ascorbic acid (vitamin C) [Vitamin C] 500 mg Tablet 2 g PO DAILY RF: 0 benzonatate [Tessalon Perles] 100 mg Capsule 200 mg PO TID PRN (Reason: Cough) RF: 0 lisinopril 10 mg Tablet 10 mg PO DAILY RF: 0 ranitidine HCl 150 mg Capsule 150 mg PO DAILY RF: 0 ipratropium bromide [Atrovent HFA] 17 mcg/actuation Hfa Aerosol Inhaler 2 puff INHALATION Q6H PRN (Reason: Shortness Of Breath) RF: 0 calcium carbonate-vitamin D3 [Calcium 600 + D(3)] 600 mg(1,500mg) -400 unit Tablet 1 tab PO BID RF: 0 tapentadol [Nucynta] 50 mg Tablet 50 mg PO Q6H PRN (Reason: Pain) RF: 0 umeclidinium-vilanterol [Anoro Ellipta] 62.5-25 mcg/actuation Blister With Device 1 inh INHALATION Q24H RF: 0 yeast [Mcfadden's Yeast] 680 mg Tablet 2,000 mg PO DAILY RF: 0 biotin 1,000 mcg Tablet,Chewable 5,000 mcg PO DAILY RF: 0 Status ED Status: With Doctor
[2018-05-06 23:00] LABS: Baso # (Auto) 0.1 th/mm3 (0.0-0.2); Baso % (Auto) 0.9 % (0.0-2.0); Eos # (Auto) 0.2 th/mm3 (0.0-0.4); Eos % (Auto) 2.2 % (0.0-4.0); Hematocrit 36.5 % (35.0-46.0); Hemoglobin 12.6 gm/dL (11.6-15.3); Lymph # (Auto) 2.6 th/mm3 (1.0-4.8); Lymph % (Auto) 28.2 % (9.0-44.0); Mean Corpuscular HGB Conc 34.5 % (32.0-36.0); Mean Corpuscular Hemoglobin 31.2 pg (27.0-34.0); Mean Corpuscular Volume 90.5 fL (80.0-100.0); Mean Platelet Volume 7.9 fL (7.0-11.0); Mono # (Auto) 0.9 th/mm3 (0.0-0.9); Mono % (Auto) 10.1 % (0.0-8.0); Neut # (Auto) 5.5 th/mm3 (1.8-7.7); Neut % (Auto) 58.6 % (16.0-70.0); Platelet Count 334 th/mm3 (150-450); Red Blood Count 4.04 mil/mm3 (4.00-5.30); Red Cell Distribution Width 13.3 % (11.6-17.2); White Blood Count 9.3 th/mm3 (4.0-11.0)
[2018-05-06 23:11] LABS: Activated Partial Thrombo Time 25.4 sec (23.4-31.7); Prothrombin Time 9.9 sec (9.8-11.6)
--- NOTE | 2018-05-06 23:21 | P.HPCC ---
History of Present Illness Service: Critical care medicine Primary Care Physician: Zain Perez MD Chief Complaint: headache History of Present Illness: 62yF with history of stage IV lung cancer presented to her oncologist earlier today with a 2 week history of worsening headache and difficulty dressing herself and coordination. CT and MRI brain found multiple masses with 9mm midline shift and significant vasogenic edema. sent to ER emergently for evaluation and management. patient denies chest pain, sob, fever, chills, double vision, vision changes, weakness. denies sensory changes. does endorse coordination difficulties. endorses headache. denies n/v/c/d or abd pain. nsgy consulted by ER physician who recommended making the patient NPO, iv steroids, iv keppra, and admission to ICU. remainder ROS negative. no other changes in medical history recently. of note: she states she is anaphylactically allergic to all opiates except for Nucynta (tapentadol) and tramadol. FHx: noncontributory to her acute illness SocHx: does drink "a 4 oz cocktail daily". never had any withdraw symptoms. 45 pack-year history smoking, quit in 2016. denies DOA. Review of Systems All other systems reviewed negative except as stated in HPI PMFSH - History History Provided By: Patient - Medical History Medical History: Medical History (Last Reviewed 05/07/18 @ 01:27 by Soren Garcia MD) Adenocarcinoma Brain lesion Fusion of lumbar spine H/O: hysterectomy - Surgical History Surgical History: Surgical History (Last Reviewed 05/07/18 @ 01:27 by Soren Garcia MD) S/P foot surgery, left - Social History I have reviewed the patient's Social History: Yes - Tobacco History Tobacco Use In Past 30 Days: Yes Smoking Status: Current some day smoker Tobacco Type: Cigarettes - Alcohol History How Often Do You Have a Drink Containing Alcohol: 2 to 3 times a week - Travel History Recent Travel in the [place] Within the Last 8 Weeks: No Recent Travel Out of the Country Within the Last 8 Weeks: No - Immunization History Tetanus Immunization: <5 Years Medications and Allergies Active Medications: Active Medications Sodium Chloride (Ns Flush) 2 ml IV.FLUSH PRN PRN PRN Reason: FLUSH AFTER USING IV ACCESS Allergies Allergy/AdvReac Type Severity Reaction Status Date / Time codeine Allergy Severe SOB-N/V Verified 05/06/18 22:37 hydromorphone Allergy Severe Anaphylaxis Verified 05/06/18 22:37 morphine Allergy Severe SOB-N/V Verified 05/06/18 22:37 propofol Allergy Severe Anaphylaxis Verified 05/06/18 22:37 COQ10 Allergy Intermediate Hives Uncoded 05/06/18 22:37 Home Medications Medication Instructions Recorded Confirmed Type B Complex 1 tab PO DAILY 05/06/18 05/06/18 History alprazolam [Xanax] 0.25 mg PO BID PRN 05/06/18 05/06/18 History ascorbic acid (vitamin C) [Vitamin 2 g PO DAILY 05/06/18 05/06/18 History C] benzonatate [Tessalon Perles] 200 mg PO TID PRN 05/06/18 05/06/18 History biotin 5,000 mcg PO DAILY 05/06/18 05/06/18 History calcium carbonate-vitamin D3 1 tab PO BID 05/06/18 05/06/18 History [Calcium 600 + D(3)] cyanocobalamin (vitamin B-12) 2,000 mcg PO DAILY 05/06/18 05/06/18 History [Vitamin B-12] cyclobenzaprine 10 mg PO HS PRN 05/06/18 05/06/18 History estrogens-methyltestosterone 1 tab PO EVERY OTHER DAY 05/06/18 05/06/18 History ibuprofen 800 mg PO QID PRN 05/06/18 05/06/18 History ipratropium bromide [Atrovent HFA] 2 puff INHALATION Q6H PRN 05/06/18 05/06/18 History lisinopril 10 mg PO DAILY 05/06/18 05/06/18 History ranitidine HCl 150 mg PO DAILY 05/06/18 05/06/18 History tapentadol [Nucynta] 50 mg PO Q6H PRN 05/06/18 05/06/18 History tramadol 50 mg PO Q6H PRN 05/06/18 05/06/18 History umeclidinium-vilanterol [Anoro 1 inh INHALATION Q24H 05/06/18 05/06/18 History Ellipta] yeast [Mcfadden's Yeast] 2,000 mg PO DAILY 05/06/18 05/06/18 History Results - Labs CBC & Chem 7: 05/06/18 22:40 05/06/18 22:40 Labs: Short CBC 05/06/18 Range/Units 22:40 WBC 9.3 (4.0-11.0) th/mm3 Hgb 12.6 (11.6-15.3) gm/dL Hct 36.5 (35.0-46.0) % Plt Count 334 (150-450) th/mm3 Exam Vital signs: Vital Signs 05/06/18 22:04 05/06/18 22:38 05/06/18 22:39 Temperature 36.5 C Pulse Rate 112 H 85 Respiratory Rate 17 18 Blood Pressure 215/99 H 152/79 H Pulse Oximetry 97 97 97 Intake & Output 05/06/18 05/06/18 05/07/18 06:59 18:59 06:59 Weight 81.647 kg Narrative: GENERAL: Middle-age female lying in bed, in distress due to her headache HEENT: Normocephalic. Atraumatic. Pupils equal, round, reactive, conjugate. Mucous membranes are moist NECK: Trachea is midline. There is no JVD. CHEST: Equal chest rise. Room air. Unlabored. CARDIOVASCULAR: Normal rate, regular rhythm. Sinus. ABDOMEN: Soft, nontender, nondistended. No guarding. MUSCULOSKELETAL: Pulses 2+. No peripheral edema. NEUROLOGICAL: RASS 0. GCS 15. Sensation is grossly intact. Noted ataxia with finger to nose bilaterally, right greater than left. Gait not assessed. Cranial nerves II through XII are intact with the exception of brief transient lateral gaze nystagmus which resolves spontaneously. SANDRA 5/5 in bilateral upper and lower extremities, proximal and distal muscle groups. DTRs 2+ bilaterally. Caprini VTE Risk Assessment Caprini VTE Risk Assessment: Moderate/High Risk (score >= 2) VTE Pharmacological Exception Reason: Intracranial lesions Caprini Risk Assessment Model: Point Value = 1 Point Value = 2 Point Value = 3 Point Value = 5 Age 41-60 Minor surgery BMI > 25 kg/m2 Swollen legs Varicose veins or History of unexplained or recurrent spontaneous Oral contraceptives or hormone replacement Sepsis (< 1 month) Serious lung disease, including pneumonia (< 1 month) Abnormal pulmonary function Acute myocardial infarction Congestive heart failure (< 1 month) History of inflammatory bowel disease Medical patient at bed rest Age 61-74 Arthroscopic surgery Major open surgery (> 45 min) Laparoscopic surgery (> 45 min) Malignancy Confined to bed (> 72 hours) Immobilizing plaster cast Central venous access Age >= 75 History of VTE Family history of VTE Factor V Leiden Prothrombin [id number] Lupus anticoagulant Anticardiolipin antibodies Elevated serum homocysteine Heparin-induced thrombocytopenia Other congenital or acquired thrombophilia Stroke (< 1 month) Elective arthroplasty Hip, pelvis, or leg fracture Acute spinal cord injury (< 1 month) Prophylaxis Regimen: Total Risk Factor Score Risk Level Prophylaxis Regimen 0-1 Low Early ambulation 2 Moderate Order ONE of the following: *Sequential Compression Device (SCD) *Heparin 5000 units SQ BID 3-4 Higher Order ONE of the following medications: *Heparin 5000 units SQ TID *Enoxaparin/Lovenox 40 mg SQ daily (WT < 150 kg, CrCl > 30 mL/min) *Enoxaparin/Lovenox 30 mg SQ daily (WT < 150 kg, CrCl > 10-29 mL/min) *Enoxaparin/Lovenox 30 mg SQ BID (WT < 150 kg, CrCl > 30 mL/min) AND/OR *Sequential Compression Device (SCD) 5 or more Highest Order ONE of the following medications: *Heparin 5000 units SQ TID (Preferred with Epidurals) *Enoxaparin/Lovenox 40 mg SQ daily (WT < 150 kg, CrCl > 30 mL/min) *Enoxaparin/Lovenox 30 mg SQ daily (WT < 150 kg, CrCl > 10-29 mL/min) *Enoxaparin/Lovenox 30 mg SQ BID (WT < 150 kg, CrCl > 30 mL/min) AND *Sequential Compression Device (SCD) Assessment and Plan - Assessment and Plan Plan: Assessment: 62yF with stage IV lung cancer with multiple brain metastases causing cerebral vasogenic edema, midline shift. admit to ICU. NPO per surgery request. decadron and keppra. Multiple cerebral masses significant midline shift acute severe vasogenic cerebral edema Ataxia Headache - decadron 10mg iv q6h - keppra 1gm loading, 500mg iv q12h - nsgy consult - q1h neuro checks - avoid long-acting sedatives stage IV lung cancer - Dr. Johnson outpt oncologist. - consult oncology to follow along Headache - anaphylactic to opiate narcotic pain medication - have ordered home Nucynta - have ordered home tramadol - will check with pharmacy to see best way of getting Nucynta-- off formulary. SCDs hold pharmacologic DVT prophylaxis given intracranial lesions protonix Admit to ICU. Code Status: Full Code
[2018-05-06 23:30] LABS: Albumin 3.9 g/dL (3.4-5.0); Anion Gap 7 meq/L (5-15); Aspartate Aminotransferase 20 U/L (15-37); Blood Urea Nitrogen 17 mg/dL (7-18); Carbon Dioxide 25.7 meq/L (21.0-32.0); Chloride 106 meq/L (98-107); Glomerular Filtration Rate 65 mL/min (>89); Glucose,Random 92 mg/dL (74-106); Potassium 4.2 meq/L (3.5-5.1); Sodium 139 meq/L (136-145)
[2018-05-06 23:31] LABS: Alanine Aminotransferase 25 U/L (10-53)
[2018-05-06 23:33] LABS: Alkaline Phosphatase 79 U/L (45-117); Total Protein 7.6 g/dL (6.4-8.2)
[2018-05-07] MEDS ORDERED: TAPENTADOL 50 MG PO PRN ×2 (01:14→02:00)
[2018-05-07] MEDS ORDERED: Benzonatate 100 MG Capsule PO PRN (01:14)
[2018-05-07] MEDS ORDERED: ALPRAZolam 0.25 MG Tablet PO PRN (01:14)
[2018-05-07] MEDS ORDERED: Magnesium Sulfate Inj 4 GM in Sodium Chlor 0.9% Inj 92 ML IV.SIG PRN (01:16)
[2018-05-07] MEDS ORDERED: Magnesium Sulfate Inj 2 GM in Sodium Chlor 0.9% Inj 96 ML IV.SIG PRN (01:16)
[2018-05-07] MEDS ORDERED: Acetaminophen 325 MG Tablet PO PRN (01:16)
[2018-05-07] MEDS ORDERED: Potassium Chlor 40 mEq Premix 40 MEQ/100 ML PIGGYBACK IV.SIG PRN ×2 (01:16)
[2018-05-07] MEDS ORDERED: Potassium Phosphate Inj 30 MMOL in Sodium Chlor 0.9% Inj 250 ML IV.SIG PRN (01:16)
[2018-05-07] MEDS ORDERED: Bisacodyl 10 MG Supp RECTAL PRN (01:16)
[2018-05-07] MEDS ORDERED: Dextrose 50% in Water 50 ML Vial IV.PUSH PRN (01:16)
[2018-05-07] MEDS ORDERED: Potassium Phosphate 500 MG Soluble Tablet PO PRN ×2 (01:16)
[2018-05-07] MEDS ORDERED: Sodium Phosphate Inj 30 MMOL in Sodium Chlor 0.9% Inj 250 ML IV.SIG PRN (01:16)
[2018-05-07] MEDS ORDERED: Potassium Chloride 25 MEQ Effervescent Tablet PO PRN (01:16)
[2018-05-07] MEDS ORDERED: Magnesium Oxide 400 MG Tablet PO PRN (01:16)
[2018-05-07] MEDS ORDERED: Potassium Chlor 20 mEq Premix 20 MEQ/100 ML PIGGYBACK IV.SIG PRN ×2 (01:16)
[2018-05-07] MEDS: Umeclindinium 62.5 MCG/Vilanterol 25 MCG Inhaler INH SCH ×2 (02:30→02:50)
[2018-05-07] MEDS: Sod Chloride 0.9% Inj 1,000 ML IV.CONT SCH ×2 (02:30→19:04)
[2018-05-07] MEDS ORDERED: Chlorhexidine Gluconate 2% 1 Pack (2 Cloths) TOPICAL PRN (04:00)
[2018-05-07] MEDS: Chlorhexidine Gluconate 2% 1 Pack (2 Cloths) TOPICAL SCH (04:00)
[2018-05-07] MEDS: Insulin NovoLIN Regular Correctional Sugar Inj SQ SCH ×3 (06:57→19:06)
--- NOTE | 2018-05-07 08:34 | P.CONNS ---
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 History of lung ca managed by Dr. Johnson here, CT Chest has been clear for > 2 years and again last evening. CT, MRI Brain showing multiple mets and most significanlty right occipital large mass with midline shift. Patient has a left visual field cut and is ataxic. She feels better with decadron given overnight. [facility] - History History Provided By: Patient - Medical History Medical History: Medical History (Last Reviewed 05/07/18 @ 07:21 by Liliam Denney) Adenocarcinoma Brain lesion Fusion of lumbar spine H/O: hysterectomy - Surgical History Surgical History: Surgical History (Last Reviewed 05/07/18 @ 07:21 by Liliam Denney) S/P foot surgery, left - Tobacco History Second Hand Smoke Exposure: No Tobacco Use In Past 30 Days: Yes Smoking Status: Current some day smoker Tobacco Type: Cigarettes - Alcohol History How Often Do You Have a Drink Containing Alcohol: 2 to 3 times a week - Substance Use History Substance History: No History of Abuse - Travel History Recent Travel in the [place] Within the Last 8 Weeks: No Recent Travel Out of the Country Within the Last 8 Weeks: No - Immunization History Tetanus Immunization: <5 Years Hx Influenza Vaccine This Season: Yes Medications and Allergies Active Medications: Active Medications Acetaminophen (Tylenol) 650 mg PO Q6H PRN PRN Reason: TEMPERATURE > 101 F Albuterol (Duoneb Neb (Prn)) 1 ampul NEB Q2HR NEB PRN PRN Reason: WHEEZING Alprazolam (Xanax) 0.25 mg PO BID PRN PRN Reason: Anxiety Ascorbic Acid (Vitamin C) 2,000 mg PO DAILY PAT Benzonatate (Tessalon Perles) 200 mg PO TID PRN PRN Reason: Cough Bisacodyl (Dulcolax Supp) 10 mg RECTAL DAILY PRN PRN Reason: if no BM in last 24h Calcium/Vitamin D (Oscal With D 250/125 Mg) 2 tab PO BID PAT Chlorhexidine Gluconate (Chlorhexidine 2% Cloth) 3 pack TOPICAL DAILY@0400 PAT Stop: 05/12/18 03:59 Last Admin: 05/07/18 04:00 Dose: 3 pack Chlorhexidine Gluconate (Chlorhexidine 2% Cloth) 3 pack TOPICAL DAILY@0400 PRN PRN Reason: Extra cloth needed Stop: 05/12/18 03:59 Cyanocobalamin (Vitamin B12) 2,000 mcg PO DAILY [facility] Cyclobenzaprine HCl (Flexeril) 10 mg PO HS PRN PRN Reason: MUSCLE SPASM Dexamethasone Sodium Phosphate (Decadron Inj) 10 mg IV.PUSH Q6H [facility] Last Admin: 05/07/18 04:00 Dose: 10 mg Dextrose (D50w Vial) 50 ml IV.PUSH UNSCH PRN PRN Reason: PER HYPOGLYCEMIA PROTOCOL Famotidine (Pepcid) 20 mg PO DAILY [facility] Glucagon (Glucagon Inj) 1 mg OTHER PRN PRN PRN Reason: for Hypoglycemia Protocol Levetiracetam 500 mg/ Sodium (Chloride) 105 mls @ 400 mls/hr IV.SIG Q12H PAT Magnesium Sulfate 4 gm/ Sodium (Chloride) 100 mls @ 50 mls/hr IV.SIG UNSCH PRN PRN Reason: For Magnesium 0.9 - 1.1 mg/dL Sodium Chloride (Ns Inj) 1,000 mls @ 84 mls/hr IV.CONT .[id number] [facility] Last Admin: 05/07/18 02:30 Dose: 84 mls/hr Potassium Chloride (Kcl 40 Meq Premix Inj) 40 meq in 100 mls @ 25 mls/hr IV.SIG Q2H PRN PRN Reason: For Potassium 2.8 - 3.2 mEq/L Potassium Chloride (Kcl 20 Meq Premix Inj) 20 meq in 100 mls @ 50 mls/hr IV.SIG Q2H PRN PRN Reason: For Potassium 3.3 - 3.5 mEq/L Potassium Chloride (Kcl 40 Meq Premix Inj) 40 meq in 100 mls @ 25 mls/hr IV.SIG UNSCH PRN PRN Reason: For Potassium 3.3 - 3.5 mEq/L Potassium Chloride (Kcl 20 Meq Premix Inj) 20 meq in 100 mls @ 50 mls/hr IV.SIG Q2H PRN PRN Reason: For Potassium 2.8 - 3.2 mEq/L Potassium Phosphate 30 mmol/ (Sodium Chloride) 260 mls @ 42 mls/hr IV.SIG UNSCH PRN PRN Reason: SEE LABEL COMMENTS Magnesium Sulfate 2 gm/ Sodium (Chloride) 100 mls @ 50 mls/hr IV.SIG UNSCH PRN PRN Reason: For Magnesium 1.2 - 1.6 mg/dL Sodium Phosphate 30 mmol/ (Sodium Chloride) 260 mls @ 42 mls/hr IV.SIG UNSCH PRN PRN Reason: For Phosphorus < 2.5 mg/dL Insulin Human Regular (Novolin R Correctional Sugar Inj) 0 units SQ Q6HR [facility]; Protocol Last Admin: 05/07/18 06:57 Dose: 2 units Lactulose (Lactulose Liq) 30 ml PO BID [facility] Magnesium Oxide (Mag-Ox) 800 mg PO UNSCH PRN PRN Reason: For Magnesium 1.2 - 1.6 mg/dL Ondansetron HCl (Zofran Inj) 4 mg IV.PUSH Q6H PRN PRN Reason: NAUSEA OR VOMITING Polyethylene Glycol (Miralax) 17 gm PO BID [facility] Potassium Bicarb/Potassium Chloride (K-Lyte Cl Eff) 50 meq PO UNSCH PRN PRN Reason: For Potassium 3.3 - 3.5 mEq/L Potassium Phosphate (K-Phos Original) 2,000 mg PO Q4H PRN PRN Reason: Phosphorus Less Than 2.5 mg/dL Potassium Phosphate (K-Phos Original) 2,000 mg PO UNSCH PRN PRN Reason: SEE LABEL COMMENTS Senna/Docusate Sodium (Daisy-Colace) 1 tab PO BID [facility] Sodium Chloride (Ns Flush) 2 ml IV.FLUSH PRN PRN PRN Reason: FLUSH AFTER USING IV ACCESS Sodium Chloride (Ns Flush) 2 ml IV.FLUSH UNSCH PRN PRN Reason: FLUSH AFTER USING IV ACCESS Tapentadol (Nucynta) 50 mg PO Q6H PRN PRN Reason: PAIN 6-10 Tramadol HCl (Ultram) 50 mg PO Q6H PRN PRN Reason: PAIN 1-5 Umeclidinium/Vilanterol (Anoro-Ellipta 62.5/25 Mcg Inh) 1 inhalation INH Q24H [facility] Last Admin: 05/07/18 02:50 Dose: 1 inhalation Vitamin B Complex/Vitamin C (Allbee C) 1 tab PO DAILY [facility] Allergies Allergy/AdvReac Type Severity Reaction Status Date / Time codeine Allergy Severe SOB-N/V Verified 05/06/18 22:37 hydromorphone Allergy Severe Anaphylaxis Verified 05/06/18 22:37 morphine Allergy Severe SOB-N/V Verified 05/06/18 22:37 propofol Allergy Severe Anaphylaxis Verified 05/06/18 22:37 COQ10 Allergy Intermediate Hives Uncoded 05/06/18 22:37 Home Medications Medication Instructions Recorded Confirmed Type B Complex 1 tab PO DAILY 05/06/18 05/06/18 History alprazolam [Xanax] 0.25 mg PO BID PRN 05/06/18 05/06/18 History ascorbic acid (vitamin C) [Vitamin 2 g PO DAILY 05/06/18 05/06/18 History C] benzonatate [Tessalon Perles] 200 mg PO TID PRN 05/06/18 05/06/18 History biotin 5,000 mcg PO DAILY 05/06/18 05/06/18 History calcium carbonate-vitamin D3 1 tab PO BID 05/06/18 05/06/18 History [Calcium 600 + D(3)] cyanocobalamin (vitamin B-12) 2,000 mcg PO DAILY 05/06/18 05/06/18 History [Vitamin B-12] cyclobenzaprine 10 mg PO HS PRN 05/06/18 05/06/18 History estrogens-methyltestosterone 1 tab PO EVERY OTHER DAY 05/06/18 05/06/18 History ibuprofen 800 mg PO QID PRN 05/06/18 05/06/18 History ipratropium bromide [Atrovent HFA] 2 puff INHALATION Q6H PRN 05/06/18 05/06/18 History lisinopril 10 mg PO DAILY 05/06/18 05/06/18 History ranitidine HCl 150 mg PO DAILY 05/06/18 05/06/18 History tapentadol [Nucynta] 50 mg PO Q6H PRN 05/06/18 05/06/18 History tramadol 50 mg PO Q6H PRN 05/06/18 05/06/18 History umeclidinium-vilanterol [Anoro 1 inh INHALATION Q24H 05/06/18 05/06/18 History Ellipta] yeast [Mcfadden's Yeast] 2,000 mg PO DAILY 05/06/18 05/06/18 History Exam Vital signs: Vital Signs 05/06/18 22:04 05/06/18 22:38 05/06/18 22:39 Temperature 97.7 F Pulse Rate 112 H 85 Respiratory Rate 17 18 Blood Pressure 215/99 H 152/79 H Pulse Oximetry 97 97 97 05/07/18 00:12 05/07/18 00:13 05/07/18 00:30 Temperature Pulse Rate 90 Respiratory Rate 25 H Blood Pressure 124/60 131/60 Pulse Oximetry 94 L 95 97 05/07/18 01:00 05/07/18 01:30 05/07/18 02:00 Temperature Pulse Rate 70 69 64 Respiratory Rate 20 15 17 Blood Pressure 118/57 L 91/52 L 95/51 L Pulse Oximetry 95 94 L 92 L 05/07/18 02:30 05/07/18 02:31 05/07/18 02:37 Temperature Pulse Rate 73 73 79 Respiratory Rate 18 18 26 H Blood Pressure 84/43 L 86/46 L 100/62 Pulse Oximetry 93 L 93 L 97 05/07/18 03:00 05/07/18 03:30 05/07/18 04:00 Temperature Pulse Rate 72 67 69 Respiratory Rate 17 17 19 Blood Pressure 100/51 L 95/54 L 93/55 L Pulse Oximetry 93 L 93 L 95 05/07/18 04:30 05/07/18 05:00 05/07/18 05:19 Temperature Pulse Rate 70 78 87 Respiratory Rate 16 29 H 29 H Blood Pressure 96/54 L 101/52 L Pulse Oximetry 93 L 96 96 05/07/18 06:00 05/07/18 06:30 Temperature Pulse Rate 73 65 Respiratory Rate 26 H 17 Blood Pressure 123/56 L 104/54 L Pulse Oximetry 97 93 L Intake & Output 05/06/18 05/07/18 05/07/18 18:59 06:59 18:59 Intake Total 100 / 100 Balance 100 / 100 Weight 88.5 kg Intake: IV 100 / 100 Keppra 1000 mg/100 mL Premix 100 / 100 100 ML @ 400 mls/hr IV.SIG ONCE ONE Rx#:[id number] Other: # Voids 1 Date of Last Bowel Movement 05/07/18 # Bowel Movements 1 Weight On Admission 88.5 kg Narrative: A&O x 3 CN II-XII intact, except left visual hemifield out Motor 5/5 UE and LE except again, left sided mild pronator drift Ataxia, dysmetria Results - Laboratory Findings CBC and BMP: 05/06/18 22:40 05/06/18 22:40 Abnormal lab findings: Abnormal Labs 05/06/18 05/06/18 05/07/18 22:40 22:40 06:00 [place] % (Auto) 10.1 H Estimated GFR 65 L POC Glucose 177 H - Diagnostic Findings Additional findings: MRI Brain with multiple mets Large right occipital lesion - 5cm with necrotic center - 1cm midline shift - vasogenic edema significant Left cerebellar - 2cm Left postecentral sulcus - 2.5cm Left motor cortex Right frontal >6 lesions Assessment and Plan - Plan 62yoF with metastatic lung ca to head Detailed history in Dr. Johnson's dictate note 05/06 Large right occipital lesion- Rec surgery tomorrow 05/08 AM Decadron 10mg IV Q6 Keppra 500mg IV/po BID Remainder lesions- rec: Rad/Onc and consulted Dr. Alvarado for post op XRT Rule out other metastatic disease-- CT Abd/Pelvis with contrast today can eat afterward, npo midnight tonight Discussed extensively with patient, her , mother, and Dr. So. Patient understands metastatic disease to head is not a good sign and aim will be for extending and preserving quality of life. She has good performance status and surgery should be able to help her. Discussed risks of surgery and goals.
--- NOTE | 2018-05-07 09:01 | CT ---
EXAM DATE: 05/07/2018 8:21 AM EST AGE/SEX: 62 years / Female INDICATIONS: Lung cancer with metastatic brain lesions. Evaluate for metastatic disease. CLINICAL DATA: This is the patient's initial encounter. Patient reports that signs and symptoms have been present for 1 day and indicates a pain score of 0/10. MEDICAL/SURGICAL HISTORY: Carcinoma, lung. Brain mets Appendectomy. Hysterectomy. ORAL CONTRAST: No oral contrast ingested. RADIATION DOSE: 10.26 CTDI (mGy) COMPARISON: [facility], CT ABDOMEN & PELVIS W CONTRAST, 08/11/2017. [facility], CT CHEST W/O CONTRAST, 09/08/19 17. [facility], CT CHEST W/O CONTRAST, 04/02/2016. . TECHNIQUE: Multiple contiguous axial images were obtained through the abdomen and pelvis following b olus infusion of 92 ml Omnipaque 350 (iohexol) nonionic water-soluble contrast as a single exam dos e. No oral contrast ingested. Using automated exposure control and adjustment of the mA and/or kV ac cording to patient size, radiation dose was kept as low as reasonably achievable to obtain optimal di agnostic quality images. DICOM format image data is available electronically for review and comparis on. FINDINGS: Lower Lungs: There is volume loss at the right lung with shift of the heart towards the right. There is a mild right pleural effusion. There are some suspected atelectasis at the right lung base. Lung s taples are seen at the anterior medial right lower lung. The left lung appears clear. Liver: The liver has a homogeneous density without space-occupying lesion. There is no dilation of th e biliary tree. Spleen: Homogeneous density without enlargement. Pancreas: Unremarkable without mass or calcification. Kidneys: Normal in size and shape. No evidence of mass or hydronephrosis. Adrenal Glands: There are 1.2 and 0.8 cm masses in the anterior aspect of the right adrenal gland. In retrospect, these were present previously going back to a noncontrast CT examination from 04/02/20 16. These likely represent small adenomas. Aorta: The aorta and proximal iliac vessels are grossly unremarkable without aneurysmal dilation. A therosclerotic calcifications are seen. Bowel/Mesentery: The bowel loops are grossly unremarkable. The cecum and sigmoid colon have a normal configuration. Abdominal Wall: Intact. Retroperitoneum: No evidence of adenopathy in the retrocrural, para-aortic, or deep pelvic regions. Bladder: Contours are smooth. Reproductive Organs: The patient is status post hysterectomy. Inguinal: The inguinal region is unremarkable without evidence of adenopathy. Bony Structures: There is surgical hardware in the lower lumbar spine. There is degenerative change in the lumbar spine. CONCLUSION: 1. 2 stable right adrenal gland masses. The stability these statistically likely represent adenomas. 2. Postoperative change in the right lung with volume loss and a mild right pleural effusion. Electronically signed by: Samy Mars MD Board Certified Radiologist 05/07/2018 9:00 AM EST
[2018-05-07] MEDS: Ascorbic Acid 500 MG Tablet PO SCH (10:51)
[2018-05-07] MEDS: Calcium/Vitamin D 250/125 MG Tablet PO SCH ×2 (10:52→20:30)
[2018-05-07] MEDS: Vitamin B Complex/Vitamin C Tablet PO SCH (10:52)
[2018-05-07] MEDS: Famotidine 20 MG Tablet PO SCH (10:52)
--- NOTE | 2018-05-07 11:59 | P.CON ---
History of Present Illness Service: oncology Consult date: 05/07/18 Primary Care Provider: Zain Perez MD Chief Complaint: headache History of Present Illness: 62 year old lady with a history of pporly differentiated adenocarcinoma, [id number] s/p right thoracotomy and removal of the RML and RLL. she is s/p 4 cycels of cisplatin and alimta as adjuvant therapy completed in 03/2016 under the direction of my colleague Dr. Johnson. She was followed with regular imaging surveillance. Over the past several weeks she developed diffculty with coordination which included inability to dress herself and to write. MRI revealed metastatic disease to the brain with a dominant lesion involving the right parietal occipital lobe with significant vasogenic lorna. [address] of the chest and abdomen with no other evidence of metastatic disease. She has been evaluated by the NSGY service. Review of Systems All other systems reviewed negative except as stated in HPI PMFSH - History History Provided By: Patient - Medical History Medical History: Medical History (Last Reviewed 05/07/18 @ 10:47 by Antonina Leung) Adenocarcinoma Brain lesion Fusion of lumbar spine H/O: hysterectomy - Surgical History Surgical History: Surgical History (Last Reviewed 05/07/18 @ 10:47 by Antonina Leung) S/P foot surgery, left - Family History Family History: Family History (Last Updated 05/07/18 @ 11:54 by Africa So) Other Family history normal - Tobacco History Second Hand Smoke Exposure: No Tobacco Use In Past 30 Days: Yes Smoking Status: Current some day smoker Tobacco Type: Cigarettes - Alcohol History How Often Do You Have a Drink Containing Alcohol: 2 to 3 times a week - Substance Use History Substance History: No History of Abuse - Travel History Recent Travel in the [place] Within the Last 8 Weeks: No Recent Travel Out of the Country Within the Last 8 Weeks: No - Immunization History Tetanus Immunization: <5 Years Hx Influenza Vaccine This Season: Yes Medications and Allergies Active Medications: Active Medications Acetaminophen (Tylenol) 650 mg PO Q6H PRN PRN Reason: TEMPERATURE > 101 F Albuterol (Duoneb Neb (Prn)) 1 ampul NEB Q2HR NEB PRN PRN Reason: WHEEZING Alprazolam (Xanax) 0.25 mg PO BID PRN PRN Reason: Anxiety Ascorbic Acid (Vitamin C) 2,000 mg PO DAILY PAT Last Admin: 05/07/18 10:51 Dose: 2,000 mg Benzonatate (Tessalon Perles) 200 mg PO TID PRN PRN Reason: Cough Bisacodyl (Dulcolax Supp) 10 mg RECTAL DAILY PRN PRN Reason: if no BM in last 24h Calcium/Vitamin D (Oscal With D 250/125 Mg) 2 tab PO BID [facility] Last Admin: 05/07/18 10:52 Dose: 2 tab Chlorhexidine Gluconate (Chlorhexidine 2% Cloth) 3 pack TOPICAL DAILY@0400 [facility] Stop: 05/12/18 03:59 Last Admin: 05/07/18 04:00 Dose: 3 pack Chlorhexidine Gluconate (Chlorhexidine 2% Cloth) 3 pack TOPICAL DAILY@0400 PRN PRN Reason: Extra cloth needed Stop: 05/12/18 03:59 Cyanocobalamin (Vitamin B12) 2,000 mcg PO DAILY [facility] Last Admin: 05/07/18 10:52 Dose: 2,000 mcg Cyclobenzaprine HCl (Flexeril) 10 mg PO HS PRN PRN Reason: MUSCLE SPASM Dexamethasone Sodium Phosphate (Decadron Inj) 10 mg IV.PUSH Q6H [facility] Last Admin: 05/07/18 10:53 Dose: 10 mg Dextrose (D50w Vial) 50 ml IV.PUSH UNSCH PRN PRN Reason: PER HYPOGLYCEMIA PROTOCOL Famotidine (Pepcid) 20 mg PO DAILY [facility] Last Admin: 05/07/18 10:52 Dose: 20 mg Glucagon (Glucagon Inj) 1 mg OTHER PRN PRN PRN Reason: for Hypoglycemia Protocol Levetiracetam 500 mg/ Sodium (Chloride) 105 mls @ 400 mls/hr IV.SIG Q12H [facility] Last Admin: 05/07/18 10:53 Dose: 400 mls/hr Magnesium Sulfate 4 gm/ Sodium (Chloride) 100 mls @ 50 mls/hr IV.SIG UNSCH PRN PRN Reason: For Magnesium 0.9 - 1.1 mg/dL Sodium Chloride (Ns Inj) 1,000 mls @ 84 mls/hr IV.CONT .[id number] [facility] Last Admin: 05/07/18 02:30 Dose: 84 mls/hr Potassium Chloride (Kcl 40 Meq Premix Inj) 40 meq in 100 mls @ 25 mls/hr IV.SIG Q2H PRN PRN Reason: For Potassium 2.8 - 3.2 mEq/L Potassium Chloride (Kcl 20 Meq Premix Inj) 20 meq in 100 mls @ 50 mls/hr IV.SIG Q2H PRN PRN Reason: For Potassium 3.3 - 3.5 mEq/L Potassium Chloride (Kcl 40 Meq Premix Inj) 40 meq in 100 mls @ 25 mls/hr IV.SIG UNSCH PRN PRN Reason: For Potassium 3.3 - 3.5 mEq/L Potassium Chloride (Kcl 20 Meq Premix Inj) 20 meq in 100 mls @ 50 mls/hr IV.SIG Q2H PRN PRN Reason: For Potassium 2.8 - 3.2 mEq/L Potassium Phosphate 30 mmol/ (Sodium Chloride) 260 mls @ 42 mls/hr IV.SIG UNSCH PRN PRN Reason: SEE LABEL COMMENTS Magnesium Sulfate 2 gm/ Sodium (Chloride) 100 mls @ 50 mls/hr IV.SIG UNSCH PRN PRN Reason: For Magnesium 1.2 - 1.6 mg/dL Sodium Phosphate 30 mmol/ (Sodium Chloride) 260 mls @ 42 mls/hr IV.SIG UNSCH PRN PRN Reason: For Phosphorus < 2.5 mg/dL Insulin Human Regular (Novolin R Correctional Sugar Inj) 0 units SQ Q6HR PAT; Protocol Last Admin: 05/07/18 06:57 Dose: 2 units Lactulose (Lactulose Liq) 30 ml PO BID PAT Magnesium Oxide (Mag-Ox) 800 mg PO UNSCH PRN PRN Reason: For Magnesium 1.2 - 1.6 mg/dL Ondansetron HCl (Zofran Inj) 4 mg IV.PUSH Q6H PRN PRN Reason: NAUSEA OR VOMITING Polyethylene Glycol (Miralax) 17 gm PO BID PAT Potassium Bicarb/Potassium Chloride (K-Lyte Cl Eff) 50 meq PO UNSCH PRN PRN Reason: For Potassium 3.3 - 3.5 mEq/L Potassium Phosphate (K-Phos Original) 2,000 mg PO Q4H PRN PRN Reason: Phosphorus Less Than 2.5 mg/dL Potassium Phosphate (K-Phos Original) 2,000 mg PO UNSCH PRN PRN Reason: SEE LABEL COMMENTS Senna/Docusate Sodium (Daisy-Colace) 1 tab PO BID PAT Sodium Chloride (Ns Flush) 2 ml IV.FLUSH PRN PRN PRN Reason: FLUSH AFTER USING IV ACCESS Sodium Chloride (Ns Flush) 2 ml IV.FLUSH UNSCH PRN PRN Reason: FLUSH AFTER USING IV ACCESS Tapentadol (Nucynta) 50 mg PO Q6H PRN PRN Reason: PAIN 6-10 Tramadol HCl (Ultram) 50 mg PO Q6H PRN PRN Reason: PAIN 1-5 Umeclidinium/Vilanterol (Anoro-Ellipta 62.5/25 Mcg Inh) 1 inhalation INH Q24H [facility] Last Admin: 05/07/18 02:50 Dose: 1 inhalation Vitamin B Complex/Vitamin C (Allbee C) 1 tab PO DAILY [facility] Last Admin: 05/07/18 10:52 Dose: 1 tab Allergies Allergy/AdvReac Type Severity Reaction Status Date / Time codeine Allergy Severe SOB-N/V Verified 05/06/18 22:37 hydromorphone Allergy Severe Anaphylaxis Verified 05/06/18 22:37 morphine Allergy Severe SOB-N/V Verified 05/06/18 22:37 propofol Allergy Severe Anaphylaxis Verified 05/06/18 22:37 COQ10 Allergy Intermediate Hives Uncoded 05/06/18 22:37 Home Medications Medication Instructions Recorded Confirmed Type B Complex 1 tab PO DAILY 05/06/18 05/06/18 History alprazolam [Xanax] 0.25 mg PO BID PRN 05/06/18 05/06/18 History ascorbic acid (vitamin C) [Vitamin 2 g PO DAILY 05/06/18 05/06/18 History C] benzonatate [Tessalon Perles] 200 mg PO TID PRN 05/06/18 05/06/18 History biotin 5,000 mcg PO DAILY 05/06/18 05/06/18 History calcium carbonate-vitamin D3 1 tab PO BID 05/06/18 05/06/18 History [Calcium 600 + D(3)] cyanocobalamin (vitamin B-12) 2,000 mcg PO DAILY 05/06/18 05/06/18 History [Vitamin B-12] cyclobenzaprine 10 mg PO HS PRN 05/06/18 05/06/18 History estrogens-methyltestosterone 1 tab PO EVERY OTHER DAY 05/06/18 05/06/18 History ibuprofen 800 mg PO QID PRN 05/06/18 05/06/18 History ipratropium bromide [Atrovent HFA] 2 puff INHALATION Q6H PRN 05/06/18 05/06/18 History lisinopril 10 mg PO DAILY 05/06/18 05/06/18 History ranitidine HCl 150 mg PO DAILY 05/06/18 05/06/18 History tapentadol [Nucynta] 50 mg PO Q6H PRN 05/06/18 05/06/18 History tramadol 50 mg PO Q6H PRN 05/06/18 05/06/18 History umeclidinium-vilanterol [Anoro 1 inh INHALATION Q24H 05/06/18 05/06/18 History Ellipta] yeast [Mcfadden's Yeast] 2,000 mg PO DAILY 05/06/18 05/06/18 History Physical Exam Vital signs: Vital Signs 05/06/18 22:04 05/06/18 22:38 05/06/18 22:39 Temperature 97.7 F Pulse Rate 112 H 85 Respiratory Rate 17 18 Blood Pressure 215/99 H 152/79 H Pulse Oximetry 97 97 97 05/07/18 00:12 05/07/18 00:13 05/07/18 00:30 Temperature Pulse Rate 90 Respiratory Rate 25 H Blood Pressure 124/60 131/60 Pulse Oximetry 94 L 95 97 05/07/18 01:00 05/07/18 01:30 05/07/18 02:00 Temperature Pulse Rate 70 69 64 Respiratory Rate 20 15 17 Blood Pressure 118/57 L 91/52 L 95/51 L Pulse Oximetry 95 94 L 92 L 05/07/18 02:30 05/07/18 02:31 05/07/18 02:37 Temperature Pulse Rate 73 73 79 Respiratory Rate 18 18 26 H Blood Pressure 84/43 L 86/46 L 100/62 Pulse Oximetry 93 L 93 L 97 05/07/18 03:00 05/07/18 03:30 05/07/18 04:00 Temperature Pulse Rate 72 67 69 Respiratory Rate 17 17 19 Blood Pressure 100/51 L 95/54 L 93/55 L Pulse Oximetry 93 L 93 L 95 05/07/18 04:30 05/07/18 05:00 05/07/18 05:19 Temperature Pulse Rate 70 78 87 Respiratory Rate 16 29 H 29 H Blood Pressure 96/54 L 101/52 L Pulse Oximetry 93 L 96 96 05/07/18 06:00 05/07/18 06:30 05/07/18 07:00 Temperature Pulse Rate 73 65 70 Respiratory Rate 26 H 17 30 H Blood Pressure 123/56 L 104/54 L Pulse Oximetry 97 93 L 95 05/07/18 07:48 05/07/18 08:00 05/07/18 08:23 Temperature 98 F Pulse Rate 71 Respiratory Rate Blood Pressure 131/79 Pulse Oximetry 94 L 96 05/07/18 08:56 05/07/18 09:00 05/07/18 09:11 Temperature Pulse Rate 80 70 Respiratory Rate 37 H 30 H Blood Pressure 133/95 H Pulse Oximetry 95 97 94 L 05/07/18 09:12 Temperature Pulse Rate 69 Respiratory Rate 24 Blood Pressure 144/64 H Pulse Oximetry 96 Intake & Output 05/06/18 05/07/18 05/07/18 18:59 06:59 18:59 Intake Total 100 / 100 Balance 100 / 100 Weight 88.5 kg Intake: IV 100 / 100 Keppra 1000 mg/100 mL Premix 100 / 100 100 ML @ 400 mls/hr IV.SIG ONCE ONE Rx#:[id number] Other: # Voids 1 Date of Last Bowel Movement 05/07/18 05/07/18 # Bowel Movements 1 Weight On Admission 88.5 kg - Constitutional no acute distress - Routine HEENT Exam Head: Present: normocephalic, atraumatic Eye: Present: EOMI, PERRL ENT: Present: mucous membranes moist - Routine Neck Exam Present: supple - Routine Respiratory Exam Comments: No accesosry muscle use, CTA bilaterally - Routine Cardiovascular Exam Present: RRR - Routine Abdominal Exam Present: soft, normoactive bowel sounds - Routine Extremities Exam Comments: no edema - Routine Neurological Exam Present: alert, oriented X3 - Routine Psychiatric Exam Present: normal affect Results - Labs CBC & Chem 7: 05/06/18 22:40 05/06/18 22:40 Labs: Laboratory Results - last 24 hr 05/06/18 05/06/18 05/06/18 22:40 22:40 22:40 WBC 9.3 RBC 4.04 Hgb 12.6 Hct 36.5 MCV 90.5 MCH 31.2 MCHC 34.5 RDW 13.3 Plt Count 334 MPV 7.9 Neut % (Auto) 58.6 Lymph % (Auto) 28.2 [place] % (Auto) 10.1 H Eos % (Auto) 2.2 Baso % (Auto) 0.9 Neut # (Auto) 5.5 Lymph # (Auto) 2.6 [place] # (Auto) 0.9 Eos # (Auto) 0.2 Baso # (Auto) 0.1 WBC Differential . Differential Comment Auto diff final PT 9.9 INR 1.0 APTT 25.4 Sodium 139 Potassium 4.2 Chloride 106 Carbon Dioxide 25.7 Anion Gap 7 BUN 17 Creatinine 0.88 Estimated GFR 65 L POC Glucose Random Glucose 92 Calcium 9.0 Magnesium 2.0 Total Bilirubin 0.4 AST 20 ALT 25 Alkaline Phosphatase 79 Total Protein 7.6 Albumin 3.9 Nasal Screen MRSA (PCR) 05/07/18 05/07/18 00:20 06:00 WBC RBC Hgb Hct MCV MCH MCHC RDW Plt Count MPV Neut % (Auto) Lymph % (Auto) [place] % (Auto) Eos % (Auto) Baso % (Auto) Neut # (Auto) Lymph # (Auto) [place] # (Auto) Eos # (Auto) Baso # (Auto) WBC Differential Differential Comment PT INR APTT Sodium Potassium Chloride Carbon Dioxide Anion Gap BUN Creatinine Estimated GFR POC Glucose 177 H Random Glucose Calcium Magnesium Total Bilirubin AST ALT Alkaline Phosphatase Total Protein Albumin Nasal Screen MRSA (PCR) Not detected - Imaging Impressions Abdomen/Pelvis CT 05/07/18 00:00 CONCLUSION: 1. 2 stable right adrenal gland masses. The stability these statistically likely represent adenomas. 2. Postoperative change in the right lung with volume loss and a mild right pleural effusion. Assessment and Plan - Plan 1. Metastatic NSCLC to the brain. She has been evaluated by the NSGY service who plans to remove dominant lesion in OR tomorrow AM. She is currently on steroid therapy. Radiation oncology service has been consult for radiation therapy to brain after surgery. She will follow closely in clinic with Dr. Johnson for consideration of systemic therapy/surveillance of disease. Inpatient oncology service will continue to follow.
[2018-05-07] MEDS: Polyethylene Glycol 3350 17 GM Packet PO SCH ×2 (13:36→20:32)
[2018-05-07] MEDS: Senna/Docusate Sodium 8.6/50 MG Tablet PO SCH ×2 (13:36→20:30)
--- NOTE | 2018-05-07 14:56 | P.PNCC ---
Subjective Subjective Remarks/Hospital Course: 05/06: 62yF with history of stage IV lung cancer presented to her oncologist earlier today with a 2 week history of worsening headache and difficulty dressing herself and coordination. CT and MRI brain found multiple masses with 9mm midline shift and significant vasogenic edema. sent to ER emergently for evaluation and management. patient denies chest pain, sob, fever, chills, double vision, vision changes, weakness. denies sensory changes. does endorse coordination difficulties. endorses headache. denies n/v/c/d or abd pain. nsgy consulted by ER physician who recommended making the patient NPO, iv steroids, iv keppra, and admission to ICU. remainder ROS negative. no other changes in medical history recently. of note: she states she is anaphylactically allergic to all opiates except for Nucynta (tapentadol) and tramadol. 05/07: Resting in bed comfortably not in any acute distress. Objective Vital Signs / I&O: Vital Signs 05/06/18 22:04 05/06/18 22:38 05/06/18 22:39 Temperature 97.7 F Pulse Rate 112 H 85 Respiratory Rate 17 18 Blood Pressure 215/99 H 152/79 H Pulse Oximetry 97 97 97 05/07/18 00:12 05/07/18 00:13 05/07/18 00:30 Temperature Pulse Rate 90 Respiratory Rate 25 H Blood Pressure 124/60 131/60 Pulse Oximetry 94 L 95 97 05/07/18 01:00 05/07/18 01:30 05/07/18 02:00 Temperature Pulse Rate 70 69 64 Respiratory Rate 20 15 17 Blood Pressure 118/57 L 91/52 L 95/51 L Pulse Oximetry 95 94 L 92 L 05/07/18 02:30 05/07/18 02:31 05/07/18 02:37 Temperature Pulse Rate 73 73 79 Respiratory Rate 18 18 26 H Blood Pressure 84/43 L 86/46 L 100/62 Pulse Oximetry 93 L 93 L 97 05/07/18 03:00 05/07/18 03:30 05/07/18 04:00 Temperature Pulse Rate 72 67 69 Respiratory Rate 17 17 19 Blood Pressure 100/51 L 95/54 L 93/55 L Pulse Oximetry 93 L 93 L 95 05/07/18 04:30 05/07/18 05:00 05/07/18 05:19 Temperature Pulse Rate 70 78 87 Respiratory Rate 16 29 H 29 H Blood Pressure 96/54 L 101/52 L Pulse Oximetry 93 L 96 96 05/07/18 06:00 05/07/18 06:30 05/07/18 07:00 Temperature Pulse Rate 73 65 70 Respiratory Rate 26 H 17 30 H Blood Pressure 123/56 L 104/54 L Pulse Oximetry 97 93 L 95 05/07/18 07:48 05/07/18 08:00 05/07/18 08:23 Temperature 98 F Pulse Rate 71 Respiratory Rate Blood Pressure 131/79 Pulse Oximetry 94 L 96 05/07/18 08:56 05/07/18 09:00 05/07/18 09:11 Temperature Pulse Rate 80 70 Respiratory Rate 37 H 30 H Blood Pressure 133/95 H Pulse Oximetry 95 97 94 L 05/07/18 09:12 05/07/18 10:00 05/07/18 10:08 Temperature Pulse Rate 69 67 72 Respiratory Rate 24 22 33 H Blood Pressure 144/64 H 148/82 H Pulse Oximetry 96 94 L 95 05/07/18 11:00 05/07/18 12:00 05/07/18 13:00 Temperature 98 F 98 F Pulse Rate 78 68 83 Respiratory Rate 41 H 35 H 36 H Blood Pressure 163/75 H 126/58 L 137/89 Pulse Oximetry 95 94 L 94 L 05/07/18 14:00 Temperature Pulse Rate 70 Respiratory Rate 18 Blood Pressure 128/59 L Pulse Oximetry 93 L Intake & Output 05/06/18 05/07/18 05/07/18 18:59 06:59 18:59 Intake Total 100 / 100 Balance 100 / 100 Weight 88.5 kg Intake: IV 100 / 100 Keppra 1000 mg/100 mL Premix 100 / 100 100 ML @ 400 mls/hr IV.SIG ONCE ONE Rx#:[id number] Other: # Voids 1 Date of Last Bowel Movement 05/07/18 05/07/18 # Bowel Movements 1 Weight On Admission 88.5 kg Result Diagrams: 05/06/18 22:40 05/06/18 22:40 Imaging: Impressions Abdomen/Pelvis CT 05/07/18 00:00 CONCLUSION: 1. 2 stable right adrenal gland masses. The stability these statistically likely represent adenomas. 2. Postoperative change in the right lung with volume loss and a mild right pleural effusion. Objective Remarks: GENERAL: Middle-age female lying in bed, in distress due to her headache HEENT: Normocephalic. Atraumatic. Pupils equal, round, reactive, conjugate. Mucous membranes are moist NECK: Trachea is midline. There is no JVD. CHEST: Equal chest rise. Room air. Unlabored. CARDIOVASCULAR: Normal rate, regular rhythm. Sinus. ABDOMEN: Soft, nontender, nondistended. No guarding. MUSCULOSKELETAL: Pulses 2+. No peripheral edema. NEUROLOGICAL: RASS 0. GCS 15. Sensation is grossly intact. Noted ataxia with finger to nose bilaterally, right greater than left. Gait not assessed. Cranial nerves II through XII are intact with the exception of brief transient lateral gaze nystagmus which resolves spontaneously. SANDRA 5/5 in bilateral upper and lower extremities, proximal and distal muscle groups. DTRs 2+ bilaterally. Assessment and Plan - Assessment and Plan Plan: Assessment: 62yF with stage IV lung cancer with multiple brain metastases causing cerebral vasogenic edema, midline shift. admit to ICU. NPO per surgery request. decadron and keppra. Multiple cerebral masses significant midline shift acute severe vasogenic cerebral edema Ataxia Headache - decadron 10mg iv q6h - keppra 1gm loading, 500mg iv q12h - nsgy consult - q1h neuro checks - avoid long-acting sedatives stage IV lung cancer - Dr. Johnson outpt oncologist. - consult oncology to follow along Headache - anaphylactic to opiate narcotic pain medication - have ordered home Nucynta - have ordered home tramadol - will check with pharmacy to see best way of getting Nucynta-- off formulary. SCDs hold pharmacologic DVT prophylaxis given intracranial lesions protonix D/W Neurosurgery. Planning OR tommorrow for brain met.
[2018-05-08] MEDS: Insulin NovoLIN Regular Correctional Sugar Inj SQ SCH ×4 (00:18→18:51)
[2018-05-08] MEDS: Umeclindinium 62.5 MCG/Vilanterol 25 MCG Inhaler INH SCH (04:23)
[2018-05-08] MEDS: Chlorhexidine Gluconate 2% 1 Pack (2 Cloths) TOPICAL SCH (04:23)
[2018-05-08] MEDS: Sod Chloride 0.9% Inj 1,000 ML IV.CONT SCH ×3 (04:23→14:34)
[2018-05-08 04:44] LABS: Baso % (Auto) 0.2 % (0.0-2.0); Hematocrit 36.1 % (35.0-46.0); Hemoglobin 12.4 gm/dL (11.6-15.3); Lymph # (Auto) 1.8 th/mm3 (1.0-4.8); Lymph % (Auto) 11.1 % (9.0-44.0); Mean Corpuscular HGB Conc 34.3 % (32.0-36.0); Mean Corpuscular Hemoglobin 31.4 pg (27.0-34.0); Mean Corpuscular Volume 91.6 fL (80.0-100.0); Mono # (Auto) 0.5 th/mm3 (0.0-0.9); Mono % (Auto) 2.9 % (0.0-8.0); Neut # (Auto) 13.8 th/mm3 (1.8-7.7); Neut % (Auto) 85.8 % (16.0-70.0); Platelet Count 357 th/mm3 (150-450); Red Blood Count 3.94 mil/mm3 (4.00-5.30); Red Cell Distribution Width 13.7 % (11.6-17.2); White Blood Count 16.1 th/mm3 (4.0-11.0)
[2018-05-08 05:09] LABS: Calcium 8.8 mg/dL (8.5-10.1); Carbon Dioxide 25.4 meq/L (21.0-32.0); Magnesium 2.2 mg/dL (1.5-2.5); Phosphorus 3.2 mg/dL (2.5-4.9); Potassium 4.5 meq/L (3.5-5.1)
[2018-05-08] MEDS ORDERED: Thrombin Topical Soln 5,000 UNIT Vial TOPICAL ONE (07:16)
[2018-05-08] MEDS ORDERED: Gelatin Size 100 Topical Foam ONE (07:17)
[2018-05-08] MEDS ORDERED: Bupivacaine/Epinephrine 0.5% Inj 50 ML Vial ONE (07:21)
[2018-05-08] MEDS: Vitamin B Complex/Vitamin C Tablet PO SCH (07:30)
[2018-05-08] MEDS ORDERED: ceFAZolin 1 GM Premix Inj 2 GM/100 ML PIGGYBACK IV.SIG ONE (08:54)
--- NOTE | 2018-05-08 09:39 | P.PNCC ---
Subjective Subjective Remarks/Hospital Course: 05/06: 62yF with history of stage IV lung cancer presented to her oncologist earlier today with a 2 week history of worsening headache and difficulty dressing herself and coordination. CT and MRI brain found multiple masses with 9mm midline shift and significant vasogenic edema. sent to ER emergently for evaluation and management. patient denies chest pain, sob, fever, chills, double vision, vision changes, weakness. denies sensory changes. does endorse coordination difficulties. endorses headache. denies n/v/c/d or abd pain. nsgy consulted by ER physician who recommended making the patient NPO, iv steroids, iv keppra, and admission to ICU. remainder ROS negative. no other changes in medical history recently. of note: she states she is anaphylactically allergic to all opiates except for Nucynta (tapentadol) and tramadol. 05/07: Resting in bed comfortably not in any acute distress. 05/08: Awake and alert. Sitting up in bed. Headache much improved according to patient. Not in any acute distress. Awaiting surgery. Objective Vital Signs / I&O: Vital Signs 05/07/18 10:00 05/07/18 10:08 05/07/18 11:00 Temperature 98 F Pulse Rate 67 72 78 Respiratory Rate 22 33 H 41 H Blood Pressure 148/82 H 163/75 H Pulse Oximetry 94 L 95 95 05/07/18 12:00 05/07/18 13:00 05/07/18 14:00 Temperature 98 F Pulse Rate 68 83 70 Respiratory Rate 35 H 36 H 18 Blood Pressure 126/58 L 137/89 128/59 L Pulse Oximetry 94 L 94 L 93 L 05/07/18 15:00 05/07/18 16:00 05/07/18 16:28 Temperature 98 F Pulse Rate 67 80 Respiratory Rate 16 24 18 Blood Pressure 104/58 L 128/74 Pulse Oximetry 93 L 93 L 05/07/18 17:00 05/07/18 17:04 05/07/18 18:00 Temperature Pulse Rate 77 75 79 Respiratory Rate 20 26 H 22 Blood Pressure 131/86 129/78 Pulse Oximetry 93 L 93 L 94 L 05/07/18 19:00 05/07/18 19:06 05/07/18 20:00 Temperature 98.1 F Pulse Rate 82 84 89 Respiratory Rate 22 30 H 23 Blood Pressure 70/47 L 141/74 H 137/68 Pulse Oximetry 91 L 92 L 93 L 05/07/18 21:00 05/07/18 22:00 05/07/18 23:00 Temperature Pulse Rate 78 80 70 Respiratory Rate 26 H 21 25 H Blood Pressure 123/62 117/84 117/63 Pulse Oximetry 94 L 95 90 L 05/08/18 00:00 05/08/18 01:00 05/08/18 02:00 Temperature 98.4 F Pulse Rate 69 70 63 Respiratory Rate 23 25 H 15 Blood Pressure 135/64 150/72 H 129/59 L Pulse Oximetry 89 L 95 94 L 05/08/18 03:00 05/08/18 04:00 05/08/18 05:00 Temperature 97.7 F Pulse Rate 62 79 72 Respiratory Rate 15 19 27 H Blood Pressure 128/60 135/61 Pulse Oximetry 95 97 95 05/08/18 05:48 05/08/18 06:00 05/08/18 06:03 Temperature Pulse Rate 73 72 Respiratory Rate 33 H 41 H Blood Pressure 122/98 H 147/69 H Pulse Oximetry 96 98 97 Intake & Output 05/07/18 05/08/18 05/08/18 18:59 06:59 18:59 Intake Total 1705 / 1705 1505 / 1505 400 / 400 Output Total 800 / 800 800 / 800 Balance 905 / 905 1505 / 1505 -400 / -400 Intake: IV 1105 / 1105 1105 / 1105 NS Inj 1,000 ML @ 84 mls/hr IV. 1000 / 1000 1000 / 1000 CONT .[id number] PAT Rx#:[id number] Keppra Inj 500 MG In NS Inj 100 105 / 105 105 / 105 ML @ 400 mls/hr IV.SIG Q12H PAT Rx#:[id number] Oral 600 / 600 400 / 400 400 / 400 Output: Urine 800 / 800 800 / 800 Other: # Voids 4 2 3 Date of Last Bowel Movement 05/07/18 05/07/18 05/07/18 # Bowel Movements 1 Result Diagrams: 05/08/18 04:24 05/08/18 04:24 Objective Remarks: GENERAL: Middle-age female lying in bed, in no acute distress HEENT: Normocephalic. Atraumatic. Pupils equal, round, reactive, conjugate. Mucous membranes are moist NECK: Trachea is midline. There is no JVD. CHEST: Equal chest rise. Room air. Unlabored. CARDIOVASCULAR: Normal rate, regular rhythm. Sinus. ABDOMEN: Soft, nontender, nondistended. No guarding. MUSCULOSKELETAL: Pulses 2+. No peripheral edema. NEUROLOGICAL: RASS 0. GCS 15. Sensation is grossly intact. Noted ataxia with finger to nose bilaterally, right greater than left. Gait not assessed. Cranial nerves II through XII are intact with the exception of brief transient lateral gaze nystagmus which resolves spontaneously. SANDRA 5/5 in bilateral upper and lower extremities, proximal and distal muscle groups. DTRs 2+ bilaterally. Assessment and Plan - Assessment and Plan Plan: Assessment: 62yF with stage IV lung cancer with multiple brain metastases causing cerebral vasogenic edema, midline shift. admit to ICU. NPO per surgery request. decadron and keppra. Multiple cerebral masses significant midline shift acute severe vasogenic cerebral edema Ataxia Headache - decrease decadron to 4mg iv q6h - keppra 1gm loading, 500mg iv q12h - nsgy consulted and scheduled for craniotomy 05/08 - q1h neuro checks - avoid long-acting sedatives stage IV lung cancer - Dr. Johnson outpt oncologist. - consult oncology to follow along Headache - anaphylactic to opiate narcotic pain medication - have ordered home Nucynta - have ordered home tramadol - will check with pharmacy to see best way of getting Nucynta-- off formulary. SCDs hold pharmacologic DVT prophylaxis given intracranial lesions protonix D/W Neurosurgery. Planning OR today for brain met.
[2018-05-08] MEDS ORDERED: Propofol 1000 mg/100 ml Inj 1,000 MG/100 ML BOTTLE ONE (11:08)
[2018-05-08] MEDS ORDERED: Propofol 1000 mg/100 ml Inj 1,000 MG/100 ML BOTTLE IV.CONT PRN (11:10)
[2018-05-08] MEDS ORDERED: fentaNYL Citrate Inj 100 MCG/2 ML Ampul ONE ×2 (11:21)
[2018-05-08] MEDS ORDERED: *Meperidine Inj 25 MG/ML Vial PERIprocedural Use ONLY ONE (11:37)
--- NOTE | 2018-05-08 12:24 | P.OP ---
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 She had been treated in 2016 with surgery and resection of her primary with no evidence of recurrence until the last two weeks of headaches and ataxia revealed multiple mets in her brain with a large right parieto-occipital lesion. Resection is indicated for symptomatic improvement prior to XRT of the remaining lesions. Description of procedure: Patient was brought to [facility] OR and the procedure done under general. She was placed in [place] pins then flipped prone on gel laminectomy rolls. All pressure points were padded. Right occipitoparietal region was clipped, then prepped and draped in the usual sterile fashion. Curvilinear incision was infiltrated, then opened sharply down to bone. Estela clips applied to wound edges. Flap reflected inferolaterally with fish hooks then perforating bit used to fashion three burholes, connected by footplate to elevate the flap. Bone flap removed. Dura reflected inferiorly and tumor appeared invading the center of the dural flap. Using microdissection, bipolar, suction, the tumor was circumferentially dissected to remove it, taking care to preserve the normal brain interface where evident. Tumor sent for permanent section. Resectopm cavity measured 4 x 4 x 4cm at completion. Hemostasis achieved with bipolar and surgiflo. Dura resected due to tumor involvement and replaced with duragen and gelfoam, bone flap replated. Incision irrigated with gentamicin irrigation, then closed in layers with 2-0 Vicryl for galea and nylon for skin. Sterile dressings applied. Patient taken out of pins, returned supine, and taken intubated to PACU in stable condition with plan for later extubation. Spone and needle counts correct, no periprocedural complications.
--- NOTE | 2018-05-08 12:25 | CT ---
EXAM DATE: 05/08/2018 12:18 PM EST AGE/SEX: 62 years / Female INDICATIONS: Follow up for resection of brain mass CLINICAL DATA: This is the patient's initial encounter. Patient reports that signs and symptoms have been present for 1 day and indicates a pain score of Nonresponsive. MEDICAL/SURGICAL HISTORY: Carcinoma, lung. Hysterectomy. RADIATION DOSE: 52.17 CTDI (mGy) COMPARISON: [facility], CT BRAIN W/O CONTRAST, 05/05/2018. [facility], MR BRAIN W AND W/O CONTRAST, 8. . TECHNIQUE: CT of the head without contrast. Using automated exposure control and adjustment of the mA and/or kV according to patient size, radiation dose was kept as low as reasonably achievable to ob tain optimal diagnostic quality images. DICOM format image data is available electronically for revi ew and comparison. FINDINGS: Cerebrum: The patient is status post right parietal craniotomy. There is air in the surgical defect at the posterior right parietal-occipital region. There is edema seen in the right temporal, parietal and occipital regions. Again noted are focal areas of increased density in the left parietal lobe wi th surrounding edema. There is 9.5 mm of right to left midline shift. The basal cisterns are open. Th e ventricles are normal for age. No evidence of midline shift, mass lesion, hemorrhage or acute infa rction. No extraaxial fluid collections are seen. Posterior Fossa: There is subtle increased density at the inferior left cerebellar hemisphere. Other woodward, the cerebellum and brainstem are intact. The 4th ventricle is midline. The cerebellopontine a ngle is unremarkable. Extracranial: The visualized portion of the orbits is intact. Skull: The calvaria is intact. No evidence of skull fracture. CONCLUSION: 1. Status post right parietal craniotomy with resection of the mass seen in this region. There is so me residual edema seen throughout the posterior right cerebral hemisphere. There is air in the postop erative site. 2. Persistent right to left midline shift. This appears unchanged. 3. Focal masses in the left parietal region and the left cerebellar hemisphere. These are better maria l racterized on the prior MRI examination. . Electronically signed by: Samy Mars MD Board Certified Radiologist 05/08/2018 12:24 PM EST
--- NOTE | 2018-05-08 12:28 | XR ---
EXAM DATE: 05/08/2018 12:17 PM EST AGE/SEX: 62 years / Female INDICATIONS: Intraop central line placement. CLINICAL DATA: This is the patient's subsequent encounter. Patient reports that signs and symptoms h ave been present for 1 day and indicates a pain score of Nonresponsive. MEDICAL/SURGICAL HISTORY: . Carcinoma, lung. Brain mets Appendectomy. Hysterectomy. . [place] [facility] [place]. . FINDINGS: The patient is intubated with the ET tube in good position. There is a left internal jugular central line placed with the tip overlying the SVC. A pneumothorax is not seen. There is shift of heart and m ediastinal structures towards the right. There appears to be a clip in the right hilum presumably fro m prior partial pneumonectomy. There appears to be postsurgical change between the fourth and fifth r ight ribs. There are some lung kaycee seen in the lateral right upper lung. There is a mild to moder ate right pleural effusion. The left lung is clear. CONCLUSION: ET tube and left internal jugular line in good position. Volume loss following right partial pneumonectomy with shift of the heart and mediastinal structures towards the right and lung kaycee seen in the right upper lung. Persistent mild to moderate right pleural effusion. Electronically signed by: Samy Mars MD Board Certified Radiologist 05/08/2018 12:26 PM EST
--- NOTE | 2018-05-08 12:30 | P.PNNS ---
Subjective Interval history: Doing well after surgery now Physical Exam Vital signs: Vital Signs 05/07/18 13:00 05/07/18 14:00 05/07/18 15:00 Temperature 98 F Pulse Rate 83 70 67 Respiratory Rate 36 H 18 16 Blood Pressure 137/89 128/59 L 104/58 L Pulse Oximetry 94 L 93 L 93 L 05/07/18 16:00 05/07/18 16:28 05/07/18 17:00 Temperature 98 F Pulse Rate 80 77 Respiratory Rate 24 18 20 Blood Pressure 128/74 Pulse Oximetry 93 L 93 L 05/07/18 17:04 05/07/18 18:00 05/07/18 19:00 Temperature Pulse Rate 75 79 82 Respiratory Rate 26 H 22 22 Blood Pressure 131/86 129/78 70/47 L Pulse Oximetry 93 L 94 L 91 L 05/07/18 19:06 05/07/18 20:00 05/07/18 21:00 Temperature 98.1 F Pulse Rate 84 89 78 Respiratory Rate 30 H 23 26 H Blood Pressure 141/74 H 137/68 123/62 Pulse Oximetry 92 L 93 L 94 L 05/07/18 22:00 05/07/18 23:00 05/08/18 00:00 Temperature 98.4 F Pulse Rate 80 70 69 Respiratory Rate 21 25 H 23 Blood Pressure 117/84 117/63 135/64 Pulse Oximetry 95 90 L 89 L 05/08/18 01:00 05/08/18 02:00 05/08/18 03:00 Temperature Pulse Rate 70 63 62 Respiratory Rate 25 H 15 15 Blood Pressure 150/72 H 129/59 L 128/60 Pulse Oximetry 95 94 L 95 05/08/18 04:00 05/08/18 05:00 05/08/18 05:48 Temperature 97.7 F Pulse Rate 79 72 Respiratory Rate 19 27 H Blood Pressure 135/61 122/98 H Pulse Oximetry 97 95 96 05/08/18 06:00 05/08/18 06:03 05/08/18 11:05 Temperature 97.6 F Pulse Rate 73 72 65 Respiratory Rate 33 H 41 H 12 Blood Pressure 147/69 H 115/56 L Pulse Oximetry 98 97 100 05/08/18 11:15 05/08/18 11:20 05/08/18 11:30 Temperature Pulse Rate 93 H 97 H Respiratory Rate 12 12 12 Blood Pressure 155/73 H 169/88 H Pulse Oximetry 100 100 100 05/08/18 11:45 05/08/18 12:00 Temperature 97.6 F Pulse Rate 77 79 Respiratory Rate 12 Blood Pressure 137/66 148/70 H Pulse Oximetry 100 100 Intake & Output 05/07/18 05/08/18 05/08/18 18:59 06:59 18:59 Intake Total 1705 / 1705 1505 / 1505 400 / 400 Output Total 800 / 800 800 / 800 Balance 905 / 905 1505 / 1505 -400 / -400 Intake: IV 1105 / 1105 1105 / 1105 NS Inj 1,000 ML @ 84 mls/hr IV. 1000 / 1000 1000 / 1000 CONT .[id number] PAT Rx#:[id number] Keppra Inj 500 MG In NS Inj 100 105 / 105 105 / 105 ML @ 400 mls/hr IV.SIG Q12H PAT Rx#:[id number] Oral 600 / 600 400 / 400 400 / 400 Output: Urine 800 / 800 800 / 800 Other: # Voids 4 2 3 Date of Last Bowel Movement 05/07/18 05/07/18 05/07/18 # Bowel Movements 1 Narrative: Baseline-- A&O x 3 CN II-XII intact, except left visual hemifield out Motor 5/5 UE and LE except again, left sided mild pronator drift Ataxia, dysmetria Postop Intubated Follows commands x 4 PERRL Planning on extubation now - Urinary Catheter Management Indwelling Urethral Catheter Cath placed during this visit: no Reason for continuing: Hourly intake/output Assessment and Plan - Plan 62yoF with metastatic lung ca to head Detailed history in Dr. Johnson's dictate note 05/06 Large right occipital lesion- Rec surgery tomorrow 05/08 AM Decadron 10mg IV Q6 Keppra 500mg IV/po BID Remainder lesions- rec: Rad/Onc and consulted Dr. Alvarado for post op XRT Rule out other metastatic disease-- CT Abd/Pelvis with contrast today can eat afterward, npo midnight tonight Discussed extensively with patient, her , mother, and Dr. So. Patient understands metastatic disease to head is not a good sign and aim will be for extending and preserving quality of life. She has good performance status and surgery should be able to help her. Discussed risks of surgery and goals. 05/08/18 Following commands now-- will extubate Post op CT looks good Decadron 4mg IV q6 slow taper Keppra to continue x 7d Wean to mobilize with PT/OT once extubated
[2018-05-08] MEDS: Senna/Docusate Sodium 8.6/50 MG Tablet PO SCH ×2 (14:31→20:38)
[2018-05-08] MEDS: Famotidine 20 MG Tablet PO SCH (14:31)
[2018-05-08] MEDS: Polyethylene Glycol 3350 17 GM Packet PO SCH ×2 (14:31→20:36)
[2018-05-08] MEDS: Calcium/Vitamin D 250/125 MG Tablet PO SCH ×2 (14:31→20:38)
[2018-05-08] MEDS: Ascorbic Acid 500 MG Tablet PO SCH (14:32)
[2018-05-08] MEDS ORDERED: Labetalol HCl Inj 100 MG/20 ML Vial ONE (14:32)
[2018-05-08] MEDS ORDERED: Labetalol HCl Inj 100 MG/20 ML Vial IV.PUSH PRN (14:36)
[2018-05-08] MEDS: Lisinopril 10 MG Tablet PO SCH (14:50)
[2018-05-08] MEDS: TAPENTADOL 50 MG PO PRN (20:50)
--- NOTE | 2018-05-09 00:52 | ECG ---
Date Performed: 05/06/2018 Time Performed: 22:56:02 PTAGE: 62 years EKG: Sinus rhythm NORMAL ECG Since the PREVIOUS TRACING , no significant change noted DOCTOR: Leonel Chapman Interpretating Date/Time 05/09/2018 00:51:16
[2018-05-09] MEDS: Insulin NovoLIN Regular Correctional Sugar Inj SQ SCH (02:24)
[2018-05-09] MEDS: TAPENTADOL 50 MG PO PRN (03:41)
[2018-05-09] MEDS: Umeclindinium 62.5 MCG/Vilanterol 25 MCG Inhaler INH SCH (05:27)
[2018-05-09] MEDS: Chlorhexidine Gluconate 2% 1 Pack (2 Cloths) TOPICAL SCH (05:34)
[2018-05-09 06:12] LABS: Baso % (Auto) 0.1 % (0.0-2.0); Hematocrit 29.8 % (35.0-46.0); Hemoglobin 10.2 gm/dL (11.6-15.3); Lymph # (Auto) 1.4 th/mm3 (1.0-4.8); Lymph % (Auto) 8.2 % (9.0-44.0); Mean Corpuscular HGB Conc 34.2 % (32.0-36.0); Mean Corpuscular Hemoglobin 31.1 pg (27.0-34.0); Mean Corpuscular Volume 90.8 fL (80.0-100.0); Mean Platelet Volume 8.2 fL (7.0-11.0); Mono # (Auto) 1.5 th/mm3 (0.0-0.9); Mono % (Auto) 8.8 % (0.0-8.0); Neut # (Auto) 14.3 th/mm3 (1.8-7.7); Neut % (Auto) 82.9 % (16.0-70.0); Platelet Count 283 th/mm3 (150-450); Red Blood Count 3.29 mil/mm3 (4.00-5.30); Red Cell Distribution Width 13.2 % (11.6-17.2); White Blood Count 17.3 th/mm3 (4.0-11.0)
[2018-05-09 06:29] LABS: Calcium 8.2 mg/dL (8.5-10.1); Magnesium 2.1 mg/dL (1.5-2.5); Phosphorus 2.8 mg/dL (2.5-4.9)
[2018-05-09] MEDS: Sod Chloride 0.9% Inj 1,000 ML IV.CONT SCH (07:50)
[2018-05-09] MEDS: Vitamin B Complex/Vitamin C Tablet PO SCH (08:00)
[2018-05-09] MEDS: Calcium/Vitamin D 250/125 MG Tablet PO SCH (08:00)
[2018-05-09] MEDS: Lisinopril 10 MG Tablet PO SCH (08:00)
[2018-05-09] MEDS: Ascorbic Acid 500 MG Tablet PO SCH (08:00)
[2018-05-09] MEDS ORDERED: Insulin NovoLIN Regular Correctional Sugar Inj SQ SCH (08:00)
[2018-05-09] MEDS: Famotidine 20 MG Tablet PO SCH (08:00)
[2018-05-09] MEDS: Senna/Docusate Sodium 8.6/50 MG Tablet PO SCH (08:02)
[2018-05-09] MEDS: Polyethylene Glycol 3350 17 GM Packet PO SCH (08:02)
--- NOTE | 2018-05-09 08:50 | P.PNCC ---
Subjective Subjective Remarks/Hospital Course: 05/06: 62yF with history of stage IV lung cancer presented to her oncologist earlier today with a 2 week history of worsening headache and difficulty dressing herself and coordination. CT and MRI brain found multiple masses with 9mm midline shift and significant vasogenic edema. sent to ER emergently for evaluation and management. patient denies chest pain, sob, fever, chills, double vision, vision changes, weakness. denies sensory changes. does endorse coordination difficulties. endorses headache. denies n/v/c/d or abd pain. nsgy consulted by ER physician who recommended making the patient NPO, iv steroids, iv keppra, and admission to ICU. remainder ROS negative. no other changes in medical history recently. of note: she states she is anaphylactically allergic to all opiates except for Nucynta (tapentadol) and tramadol. 05/07: Resting in bed comfortably not in any acute distress. 05/08: Awake and alert. Sitting up in bed. Headache much improved according to patient. Not in any acute distress. Awaiting surgery. 05/09: Patient is alert awake and conversant following a right occipital craniotomy and resection of a metastatic brain lesion. No problems with airway or speech. Moves 4 extremities. Persistent visual field cut left lateral, unchanged from preop. Patient does not drive anymore. Objective Vital Signs / I&O: Vital Signs 05/08/18 10:54 05/08/18 11:00 05/08/18 11:05 Temperature 97.6 F Pulse Rate 61 65 Respiratory Rate 16 12 Blood Pressure 115/56 L Pulse Oximetry 100 100 100 05/08/18 11:15 05/08/18 11:20 05/08/18 11:30 Temperature Pulse Rate 93 H 97 H Respiratory Rate 12 12 12 Blood Pressure 155/73 H 169/88 H Pulse Oximetry 100 100 100 05/08/18 11:45 05/08/18 12:00 05/08/18 12:01 Temperature 97.6 F Pulse Rate 77 106 H 104 H Respiratory Rate 12 47 H 48 H Blood Pressure 137/66 148/70 H 190/83 H Pulse Oximetry 100 100 100 05/08/18 12:20 05/08/18 12:23 05/08/18 13:00 Temperature Pulse Rate 87 66 Respiratory Rate 16 12 Blood Pressure 159/74 H Pulse Oximetry 100 100 05/08/18 13:02 05/08/18 13:40 05/08/18 13:42 Temperature Pulse Rate 66 94 H 97 H Respiratory Rate 12 17 18 Blood Pressure 145/68 H 192/126 H 195/85 H Pulse Oximetry 100 100 100 05/08/18 13:56 05/08/18 14:00 05/08/18 14:02 Temperature Pulse Rate 94 H 91 H 83 Respiratory Rate 28 H 19 17 Blood Pressure 192/87 H 172/81 H Pulse Oximetry 100 100 100 05/08/18 14:09 05/08/18 15:00 05/08/18 15:02 Temperature Pulse Rate 99 H 75 73 Respiratory Rate 26 H 32 H 20 Blood Pressure 174/91 H 147/66 H Pulse Oximetry 100 98 100 05/08/18 16:00 05/08/18 16:02 05/08/18 17:00 Temperature Pulse Rate 75 74 76 Respiratory Rate 21 29 H 30 H Blood Pressure 162/73 H Pulse Oximetry 100 98 90 L 05/08/18 17:02 05/08/18 18:00 05/08/18 18:02 Temperature Pulse Rate 79 78 72 Respiratory Rate 27 H 27 H 33 H Blood Pressure 162/75 H 160/76 H Pulse Oximetry 98 98 97 05/08/18 19:00 05/08/18 19:02 05/08/18 20:00 Temperature 98.4 F Pulse Rate 73 68 76 Respiratory Rate 19 23 24 Blood Pressure 150/77 H Pulse Oximetry 98 98 95 05/08/18 20:02 05/08/18 20:05 05/08/18 21:00 Temperature Pulse Rate 69 73 Respiratory Rate 21 24 Blood Pressure 138/63 Pulse Oximetry 93 L 97 99 05/08/18 21:02 05/08/18 22:00 05/08/18 22:02 Temperature Pulse Rate 77 70 70 Respiratory Rate 23 17 29 H Blood Pressure 148/84 H 152/73 H Pulse Oximetry 98 97 97 05/08/18 23:00 05/08/18 23:02 05/09/18 00:00 Temperature 98.6 F Pulse Rate 77 70 73 Respiratory Rate 24 22 24 Blood Pressure 153/75 H Pulse Oximetry 99 96 95 05/09/18 00:02 05/09/18 01:00 05/09/18 01:02 Temperature Pulse Rate 65 59 L 59 L Respiratory Rate 18 13 13 Blood Pressure 163/70 H 143/67 H Pulse Oximetry 94 L 97 97 05/09/18 02:00 05/09/18 02:02 05/09/18 03:00 Temperature Pulse Rate 58 L 63 57 L Respiratory Rate 16 21 13 Blood Pressure 140/73 Pulse Oximetry 97 98 97 05/09/18 03:02 05/09/18 04:00 05/09/18 04:02 Temperature 98.4 F Pulse Rate 56 L 65 58 L Respiratory Rate 14 20 16 Blood Pressure 138/65 142/73 H Pulse Oximetry 97 95 95 05/09/18 05:00 05/09/18 05:02 05/09/18 06:00 Temperature Pulse Rate 62 58 L 74 Respiratory Rate 16 16 24 Blood Pressure 142/74 H Pulse Oximetry 96 96 96 05/09/18 06:38 05/09/18 07:00 05/09/18 07:02 Temperature 98.4 F Pulse Rate 74 67 70 Respiratory Rate 33 H 30 H 23 Blood Pressure 126/79 141/67 H 141/67 H Pulse Oximetry 05/09/18 07:50 05/09/18 08:09 Temperature Pulse Rate Respiratory Rate 19 Blood Pressure Pulse Oximetry 97 Intake & Output 05/08/18 05/09/18 05/09/18 18:59 06:59 18:59 Intake Total 2205 / 2205 2054 / 5 Output Total 1999 975 / 975 Balance / 1080 / 1080 Weight 92 kg Intake: IV 405 / 405 105 / 105 Mannitol Inj 50 ML @ 0 mls/hr . 100 / 100 ROUTE .STK-MED ONE Rx#:[id number] Ancef 1 GM Premix Inj 2 gm In 100 / 100 100 ml @ 0 mls/hr IV.SIG .STK- MED ONE Rx#:[id number] Keppra Inj 500 MG In NS Inj 100 205 / 205 105 / 105 ML @ 400 mls/hr IV.SIG Q12H [facility] Rx#:[id number] Oral 400 / 400 1950 / 1950 Anesthesia Amount 1400 / 1400 Output: Urine 800 / 800 Estimated Blood Loss 100 / 100 Urine Amount (Catheter) 1100 / 1100 975 / 975 Indwelling Urethral Catheter 1100 / 1100 975 / 975 Other: # Voids 3 Date of Last Bowel Movement 05/07/18 05/07/18 # Bowel Movements 0 Result Diagrams: 05/09/18 05:49 05/09/18 05:49 Objective Remarks: GENERAL: Middle-age female, alert, calm. HEENT: Normocephalic. Atraumatic. Pupils equal, round, reactive, conjugate. Mucous membranes are moist NECK: Trachea is midline. Airway widely patent, no obstructive noises. CHEST: Equal chest rise. Melvin clear. Room air. Unlabored. CARDIOVASCULAR: Normal rate, regular rhythm. Sinus. No JVD. ABDOMEN: Soft, nontender, nondistended. No guarding. Bowel sounds active. MUSCULOSKELETAL: Pulses 2+. No peripheral edema. NEUROLOGICAL: RASS 0. GCS 15. Sensation is grossly normal. SANDRA 5/5 in bilateral upper and lower extremities, proximal and distal muscle groups. DTRs 2 + bilaterally. Follows commands with 4 extremities. Assessment and Plan - Assessment and Plan Plan: Assessment: 62yF with stage IV lung cancer with multiple brain metastases causing cerebral vasogenic edema, midline shift, underwent right occipital craniotomy yesterday for resection of new posterior mass. Continue Decadron and keppra. Multiple cerebral masses significant midline shift acute severe vasogenic cerebral edema Ataxia Headache -Convert to p.o. Decadron to 4mg q6h - keppra 1gm loading, 500mg iv q12h, convert to p.o. - neuro checks - avoid long-acting sedatives stage IV lung cancer - Dr. Johnson outpt oncologist. - consult oncology to follow along Headache - anaphylactic to opiate narcotic pain medication - have ordered home Nucynta - have ordered home tramadol - will check with pharmacy to see best way of getting Nucynta-- off formulary. SCDs hold pharmacologic DVT prophylaxis given intracranial lesions protonix Overall impression: Stable neurologic status following right occipital craniotomy and resection of large metastatic lesion. She protects her airway fine, is alert and oriented x3, follows commands, speech is clear.
--- NOTE | 2018-05-09 09:30 | P.DS ---
Date of admission: 05/06/18 23:20 Primary care physician: Zain Perez MD Attending physician on discharge: Vin Burrell Anticipated date of discharge: 05/09/18 Brief History from admission: 62yF with history of stage IV lung cancer presented to her oncologist earlier today with a 2 week history of worsening headache and difficulty dressing herself and coordination. CT and MRI brain found multiple masses with 9mm midline shift and significant vasogenic edema. sent to ER emergently for evaluation and management. patient denies chest pain, sob, fever, chills, double vision, vision changes, weakness. denies sensory changes. does endorse coordination difficulties. endorses headache. denies n/v/c/d or abd pain. nsgy consulted by ER physician who recommended making the patient NPO, iv steroids, iv keppra, and admission to ICU. remainder ROS negative. no other changes in medical history recently. of note: she states she is anaphylactically allergic to all opiates except for Nucynta (tapentadol) and tramadol. FHx: noncontributory to her acute illness SocHx: does drink "a 4 oz cocktail daily". never had any withdraw symptoms. 45 pack-year history smoking, quit in 2016. denies DOA. Patient update on day of discharge: Awake, alert, cooperative, follows commands. Oriented x3 and appropriate. Discharge instructions rendered by fire prevention inspector and Dr. Zambrano. DS: Diagnosis - Discharge Diagnosis (1) Brain metastases Status: Acute DS: Medications - Discharge Medications Prescriptions: fluconazole 200 mg PO DAILY 4 Days #4 tab levetiracetam [Keppra] 500 mg PO BID #60 tab tramadol [Ultram] 50 mg PO Q6H PRN 3 Days tab PRN Reason: PAIN 6-10 DS: Summary Hospital Course: 05/06: 62yF with history of stage IV lung cancer presented to her oncologist earlier today with a 2 week history of worsening headache and difficulty dressing herself and coordination. CT and MRI brain found multiple masses with 9mm midline shift and significant vasogenic edema. sent to ER emergently for evaluation and management. patient denies chest pain, sob, fever, chills, double vision, vision changes, weakness. denies sensory changes. does endorse coordination difficulties. endorses headache. denies n/v/c/d or abd pain. nsgy consulted by ER physician who recommended making the patient NPO, iv steroids, iv keppra, and admission to ICU. remainder ROS negative. no other changes in medical history recently. of note: she states she is anaphylactically allergic to all opiates except for Nucynta (tapentadol) and tramadol. 05/07: Resting in bed comfortably not in any acute distress. 05/08: Awake and alert. Sitting up in bed. Headache much improved according to patient. Not in any acute distress. Awaiting surgery. 05/09: Patient is alert awake and conversant following a right occipital craniotomy and resection of a metastatic brain lesion. No problems with airway or speech. Moves 4 extremities. Persistent visual field cut left lateral, unchanged from preop. Patient does not drive anymore. - Time Spent with Patient Total time spent providing and/or coordinating discharge services: Greater than 30 minutes - Quality: VTE Deep Vein Thrombosis/Pulmonary Embolism Present on Admission: No Exam Vital signs: Vital Signs 05/08/18 10:54 05/08/18 11:00 05/08/18 11:05 Temperature 97.6 F Pulse Rate 61 65 Respiratory Rate 16 12 Blood Pressure 115/56 L Pulse Oximetry 100 100 100 05/08/18 11:15 05/08/18 11:20 05/08/18 11:30 Temperature Pulse Rate 93 H 97 H Respiratory Rate 12 12 12 Blood Pressure 155/73 H 169/88 H Pulse Oximetry 100 100 100 05/08/18 11:45 05/08/18 12:00 05/08/18 12:01 Temperature 97.6 F Pulse Rate 77 106 H 104 H Respiratory Rate 12 47 H 48 H Blood Pressure 137/66 148/70 H 190/83 H Pulse Oximetry 100 100 100 05/08/18 12:20 05/08/18 12:23 05/08/18 13:00 Temperature Pulse Rate 87 66 Respiratory Rate 16 12 Blood Pressure 159/74 H Pulse Oximetry 100 100 05/08/18 13:02 05/08/18 13:40 05/08/18 13:42 Temperature Pulse Rate 66 94 H 97 H Respiratory Rate 12 17 18 Blood Pressure 145/68 H 192/126 H 195/85 H Pulse Oximetry 100 100 100 05/08/18 13:56 05/08/18 14:00 05/08/18 14:02 Temperature Pulse Rate 94 H 91 H 83 Respiratory Rate 28 H 19 17 Blood Pressure 192/87 H 172/81 H Pulse Oximetry 100 100 100 05/08/18 14:09 05/08/18 15:00 05/08/18 15:02 Temperature Pulse Rate 99 H 75 73 Respiratory Rate 26 H 32 H 20 Blood Pressure 174/91 H 147/66 H Pulse Oximetry 100 98 100 05/08/18 16:00 05/08/18 16:02 05/08/18 17:00 Temperature Pulse Rate 75 74 76 Respiratory Rate 21 29 H 30 H Blood Pressure 162/73 H Pulse Oximetry 100 98 90 L 05/08/18 17:02 05/08/18 18:00 05/08/18 18:02 Temperature Pulse Rate 79 78 72 Respiratory Rate 27 H 27 H 33 H Blood Pressure 162/75 H 160/76 H Pulse Oximetry 98 98 97 05/08/18 19:00 05/08/18 19:02 05/08/18 20:00 Temperature 98.4 F Pulse Rate 73 68 76 Respiratory Rate 19 23 24 Blood Pressure 150/77 H Pulse Oximetry 98 98 95 05/08/18 20:02 05/08/18 20:05 05/08/18 21:00 Temperature Pulse Rate 69 73 Respiratory Rate 21 24 Blood Pressure 138/63 Pulse Oximetry 93 L 97 99 05/08/18 21:02 05/08/18 22:00 05/08/18 22:02 Temperature Pulse Rate 77 70 70 Respiratory Rate 23 17 29 H Blood Pressure 148/84 H 152/73 H Pulse Oximetry 98 97 97 05/08/18 23:00 05/08/18 23:02 05/09/18 00:00 Temperature 98.6 F Pulse Rate 77 70 73 Respiratory Rate 24 22 24 Blood Pressure 153/75 H Pulse Oximetry 99 96 95 05/09/18 00:02 05/09/18 01:00 05/09/18 01:02 Temperature Pulse Rate 65 59 L 59 L Respiratory Rate 18 13 13 Blood Pressure 163/70 H 143/67 H Pulse Oximetry 94 L 97 97 05/09/18 02:00 05/09/18 02:02 05/09/18 03:00 Temperature Pulse Rate 58 L 63 57 L Respiratory Rate 16 21 13 Blood Pressure 140/73 Pulse Oximetry 97 98 97 05/09/18 03:02 05/09/18 04:00 05/09/18 04:02 Temperature 98.4 F Pulse Rate 56 L 65 58 L Respiratory Rate 14 20 16 Blood Pressure 138/65 142/73 H Pulse Oximetry 97 95 95 05/09/18 05:00 05/09/18 05:02 05/09/18 06:00 Temperature Pulse Rate 62 58 L 74 Respiratory Rate 16 16 24 Blood Pressure 142/74 H Pulse Oximetry 96 96 96 05/09/18 06:38 05/09/18 07:00 05/09/18 07:02 Temperature 98.4 F Pulse Rate 74 67 70 Respiratory Rate 33 H 30 H 23 Blood Pressure 126/79 141/67 H 141/67 H Pulse Oximetry 05/09/18 07:50 05/09/18 08:09 Temperature Pulse Rate Respiratory Rate 19 Blood Pressure Pulse Oximetry 97 Intake & Output 05/08/18 05/09/18 05/09/18 18:59 06:59 18:59 Intake Total 2205 / 2205 2054 / 5 Output Total 1999 / 1999 975 / 975 Balance 205 / 205 1080 / 1080 Weight 92 kg Intake: IV 405 / 405 105 / 105 Mannitol Inj 50 ML @ 0 mls/hr . 100 / 100 ROUTE .STK-MED ONE Rx#:[id number] Ancef 1 GM Premix Inj 2 gm In 100 / 100 100 ml @ 0 mls/hr IV.SIG .STK- MED ONE Rx#:[id number] Keppra Inj 500 MG In NS Inj 100 205 / 205 105 / 105 ML @ 400 mls/hr IV.SIG Q12H [facility] Rx#:[id number] Oral 400 / 400 1950 / 1950 Anesthesia Amount 1400 / 1400 Output: Urine 800 / 800 Estimated Blood Loss 100 / 100 Urine Amount (Catheter) 1100 / 1100 975 / 975 Indwelling Urethral Catheter 1100 / 1100 975 / 975 Other: # Voids 3 Date of Last Bowel Movement 05/07/18 05/07/18 # Bowel Movements 0 Narrative: Breathing comfortably, normotensive. Oriented x3, appropriate, cooperative, follows commands. Results Procedures completed during hospitalization: Right occipital craniotomy and resection of metastatic tumor. Pending studies at discharge: Pending at discharge 05/08/18 08:20 Surgical [PTH] Routine Labs on day of discharge: Labs from last 24 hours 05/09/18 05/09/18 05/08/18 05:49 05:49 08:30 WBC 17.3 H RBC 3.29 L Hgb 10.2 L D Hct 29.8 L MCV 90.8 MCH 31.1 MCHC 34.2 RDW 13.2 Plt Count 283 MPV 8.2 Neut % (Auto) 82.9 H Lymph % (Auto) 8.2 L [place] % (Auto) 8.8 H Eos % (Auto) 0.0 Baso % (Auto) 0.1 Neut # (Auto) 14.3 H Lymph # (Auto) 1.4 [place] # (Auto) 1.5 H Eos # (Auto) 0.0 Baso # (Auto) 0.0 WBC Differential . Differential Comment Auto diff final Sodium 138 Potassium 4.0 Chloride 104 Carbon Dioxide 29.0 Anion Gap 5 BUN 14 Creatinine 0.73 Estimated GFR 81 L Random Glucose 122 H Calcium 8.2 L Phosphorus 2.8 Magnesium 2.1 Antibody Screen Negative - Impressions ITS Impressions Abdomen/Pelvis CT 05/07/18 00:00 CONCLUSION: 1. 2 stable right adrenal gland masses. The stability these statistically likely represent adenomas. 2. Postoperative change in the right lung with volume loss and a mild right pleural effusion. Chest X-Ray 05/08/18 00:00 CONCLUSION: ET tube and left internal jugular line in good position. Volume loss following right partial pneumonectomy with shift of the heart and mediastinal structures towards the right and lung [place] seen in the right upper lung. Persistent mild to moderate right pleural effusion. Head CT 05/08/18 11:27 CONCLUSION: 1. Status post right parietal craniotomy with resection of the mass seen in this region. There is some residual edema seen throughout the posterior right cerebral hemisphere. There is air in the postoperative site. 2. Persistent right to left midline shift. This appears unchanged. 3. Focal masses in the left parietal region and the left cerebellar hemisphere. These are better characterized on the prior MRI examination. . Discharge Plan - Discharge Disposition Patient Disposition: 01 Discharge Home - Discharge Condition Condition: Critical - Discharge Order Discharge Orders: Discharge Order (Routine); Ordered 05/09/18 Ordered By: Vin Burrell - Discharge Details Anticipated Discharge Date: 05/09/18 - Physicians Team Primary Care Provider: Zain Perez Attending Provider: Soren Garcia Other Providers: [place] So ; Arpan Guerrero MD ; Dk Zambrano MD ; Bronson Johnson MD
--- NOTE | 2018-05-09 10:33 | P.PNONC ---
Subjective Interval history: Doing well postop. Walking in the [place] with minimal assistance. Coordination better. Headaches gone. Objective Vital Signs/Intake & Output: Vital Signs 05/08/18 10:54 05/08/18 11:00 05/08/18 11:05 Temperature 97.6 F Pulse Rate 61 65 Respiratory Rate 16 12 Blood Pressure 115/56 L Pulse Oximetry 100 100 100 05/08/18 11:15 05/08/18 11:20 05/08/18 11:30 Temperature Pulse Rate 93 H 97 H Respiratory Rate 12 12 12 Blood Pressure 155/73 H 169/88 H Pulse Oximetry 100 100 100 05/08/18 11:45 05/08/18 12:00 05/08/18 12:01 Temperature 97.6 F Pulse Rate 77 106 H 104 H Respiratory Rate 12 47 H 48 H Blood Pressure 137/66 148/70 H 190/83 H Pulse Oximetry 100 100 100 05/08/18 12:20 05/08/18 12:23 05/08/18 13:00 Temperature Pulse Rate 87 66 Respiratory Rate 16 12 Blood Pressure 159/74 H Pulse Oximetry 100 100 05/08/18 13:02 05/08/18 13:40 05/08/18 13:42 Temperature Pulse Rate 66 94 H 97 H Respiratory Rate 12 17 18 Blood Pressure 145/68 H 192/126 H 195/85 H Pulse Oximetry 100 100 100 05/08/18 13:56 05/08/18 14:00 05/08/18 14:02 Temperature Pulse Rate 94 H 91 H 83 Respiratory Rate 28 H 19 17 Blood Pressure 192/87 H 172/81 H Pulse Oximetry 100 100 100 05/08/18 14:09 05/08/18 15:00 05/08/18 15:02 Temperature Pulse Rate 99 H 75 73 Respiratory Rate 26 H 32 H 20 Blood Pressure 174/91 H 147/66 H Pulse Oximetry 100 98 100 05/08/18 16:00 05/08/18 16:02 05/08/18 17:00 Temperature Pulse Rate 75 74 76 Respiratory Rate 21 29 H 30 H Blood Pressure 162/73 H Pulse Oximetry 100 98 90 L 05/08/18 17:02 05/08/18 18:00 05/08/18 18:02 Temperature Pulse Rate 79 78 72 Respiratory Rate 27 H 27 H 33 H Blood Pressure 162/75 H 160/76 H Pulse Oximetry 98 98 97 12/23/18 19:00 05/08/18 19:02 05/08/18 20:00 Temperature 98.4 F Pulse Rate 73 68 76 Respiratory Rate 19 23 24 Blood Pressure 150/77 H Pulse Oximetry 98 98 95 05/08/18 20:02 05/08/18 20:05 05/08/18 21:00 Temperature Pulse Rate 69 73 Respiratory Rate 21 24 Blood Pressure 138/63 Pulse Oximetry 93 L 97 99 05/08/18 21:02 05/08/18 22:00 05/08/18 22:02 Temperature Pulse Rate 77 70 70 Respiratory Rate 23 17 29 H Blood Pressure 148/84 H 152/73 H Pulse Oximetry 98 97 97 05/08/18 23:00 05/08/18 23:02 05/09/18 00:00 Temperature 98.6 F Pulse Rate 77 70 73 Respiratory Rate 24 22 24 Blood Pressure 153/75 H Pulse Oximetry 99 96 95 05/09/18 00:02 05/09/18 01:00 05/09/18 01:02 Temperature Pulse Rate 65 59 L 59 L Respiratory Rate 18 13 13 Blood Pressure 163/70 H 143/67 H Pulse Oximetry 94 L 97 97 05/09/18 02:00 05/09/18 02:02 05/09/18 03:00 Temperature Pulse Rate 58 L 63 57 L Respiratory Rate 16 21 13 Blood Pressure 140/73 Pulse Oximetry 97 98 97 05/09/18 03:02 05/09/18 04:00 05/09/18 04:02 Temperature 98.4 F Pulse Rate 56 L 65 58 L Respiratory Rate 14 20 16 Blood Pressure 138/65 142/73 H Pulse Oximetry 97 95 95 05/09/18 05:00 05/09/18 05:02 05/09/18 06:00 Temperature Pulse Rate 62 58 L 74 Respiratory Rate 16 16 24 Blood Pressure 142/74 H Pulse Oximetry 96 96 96 05/09/18 06:38 05/09/18 07:00 05/09/18 07:02 Temperature 98.4 F Pulse Rate 74 67 70 Respiratory Rate 33 H 30 H 23 Blood Pressure 126/79 141/67 H 141/67 H Pulse Oximetry 05/09/18 07:50 05/09/18 08:09 Temperature Pulse Rate Respiratory Rate 19 Blood Pressure Pulse Oximetry 97 Intake & Output 05/08/18 05/09/18 05/09/18 18:59 06:59 18:59 Intake Total 2204 / 2204 Output Total 1999 975 / 975 Balance 1080 / 1079 Weight 92 kg Intake: IV 405 / 405 105 / 105 Mannitol Inj 50 ML @ 0 mls/hr . 100 / 100 ROUTE .STK-MED ONE Rx#:[id number] Ancef 1 GM Premix Inj 2 gm In 100 / 100 100 ml @ 0 mls/hr IV.SIG .STK- MED ONE Rx#:[id number] Keppra Inj 500 MG In NS Inj 100 105 / 105 ML @ 400 mls/hr IV.SIG Q12H COUNTS INCLUDE 234 BEDS AT THE [facility] Rx#:[id number] Oral 400 / 400 1950 / 1950 Anesthesia Amount 1400 / 1400 Output: Urine 800 / 800 Estimated Blood Loss 100 / 100 Urine Amount (Catheter) 1100 / 1100 975 / 975 Indwelling Urethral Catheter 1100 / 1100 975 / 975 Other: # Voids 3 Date of Last Bowel Movement 05/07/18 05/07/18 # Bowel Movements 0 Result Diagrams: 05/09/18 05:49 05/09/18 05:49 Laboratory Results: Laboratory Results - last 24 hr 05/09/18 05/09/18 05:49 05:49 WBC 17.3 H RBC 3.29 L Hgb 10.2 L D Hct 29.8 L MCV 90.8 MCH 31.1 MCHC 34.2 RDW 13.2 Plt Count 283 MPV 8.2 Neut % (Auto) 82.9 H Lymph % (Auto) 8.2 L [place] % (Auto) 8.8 H Eos % (Auto) 0.0 Baso % (Auto) 0.1 Neut # (Auto) 14.3 H Lymph # (Auto) 1.4 [place] # (Auto) 1.5 H Eos # (Auto) 0.0 Baso # (Auto) 0.0 WBC Differential . Differential Comment Auto diff final Sodium 138 Potassium 4.0 Chloride 104 Carbon Dioxide 29.0 Anion Gap 5 BUN 14 Creatinine 0.73 Estimated GFR 81 L Random Glucose 122 H Calcium 8.2 L Phosphorus 2.8 Magnesium 2.1 Imaging Studies: Impressions Chest X-Ray 05/08/18 00:00 CONCLUSION: ET tube and left internal jugular line in good position. Volume loss following right partial pneumonectomy with shift of the heart and mediastinal structures towards the right and lung [place] seen in the right upper lung. Persistent mild to moderate right pleural effusion. Head CT 05/08/18 11:27 CONCLUSION: 1. Status post right parietal craniotomy with resection of the mass seen in this region. There is some residual edema seen throughout the posterior right cerebral hemisphere. There is air in the postoperative site. 2. Persistent right to left midline shift. This appears unchanged. 3. Focal masses in the left parietal region and the left cerebellar hemisphere. These are better characterized on the prior MRI examination. . Medications: Active Medications Generic Name Dose Route Start Last Admin Trade Name Freq PRN Reason Stop Dose Admin Alprazolam 0.25 mg 05/07/18 01:14 05/07/18 22:08 Xanax PO 0.25 mg BID PRN Administration Anxiety Ascorbic Acid 2,000 mg 05/07/18 09:00 05/09/18 08:00 Vitamin C PO 2,000 mg DAILY PAT Administration Calcium Carbonate 500 mg 05/09/18 05:00 05/09/18 05:33 Tums Chew PO 500 mg Q6H PRN Administration INDIGESTION Calcium/Vitamin D 2 tab 05/07/18 09:00 05/09/18 08:00 Oscal With D 250/125 Mg PO 2 tab BID PAT Administration Chlorhexidine Gluconate 3 pack 05/07/18 04:00 05/09/18 05:34 Chlorhexidine 2% Cloth TOPICAL 05/12/18 03:59 3 pack DAILY@0400 PAT Administration Cyanocobalamin 2,000 mcg 05/07/18 09:00 05/09/18 08:00 Vitamin B12 PO 2,000 mcg DAILY PAT Administration Dexamethasone Sodium Phosphate 4 mg 05/08/18 11:00 05/09/18 05:34 Decadron Inj IV.PUSH 4 mg Q6H PAT Administration Famotidine 20 mg 05/07/18 09:00 05/09/18 08:00 Pepcid PO 20 mg DAILY PAT Administration Sodium Chloride 1,000 mls @ 84 mls/hr 05/07/18 01:30 05/09/18 07:50 Ns Inj IV.CONT Not Given .[id number] PAT Insulin Human Regular 0 units 05/09/18 08:00 05/09/18 08:01 Novolin R Correctional Sugar Inj SQ Not Given ACHS CORRECT SUGARS COUNTS INCLUDE 234 BEDS AT THE [facility] Protocol Labetalol HCl 20 mg 05/08/18 14:36 05/08/18 16:28 Trandate Inj IV.PUSH 20 mg Q4H PRN Administration SBP>160, DBP>90 Lactulose 30 ml 05/07/18 09:00 05/09/18 08:01 Lactulose Liq PO Not Given BID PAT Lisinopril 10 mg 05/08/18 14:45 05/09/18 08:00 Prinivil PO 10 mg DAILY PAT Administration Pt Own Narc Med: 50 each 05/07/18 16:30 05/09/18 03:41 Tapentadol 50mg PO 50 each Q6H PRN Administration PAIN 6-10 Polyethylene Glycol 17 gm 05/07/18 09:00 05/09/18 08:02 Miralax PO Not Given BID PAT Senna/Docusate Sodium 1 tab 05/07/18 09:00 05/09/18 08:02 Daisy-Colace PO Not Given BID PAT Tramadol HCl 50 mg 05/07/18 01:14 05/09/18 07:04 Ultram PO 50 mg Q6H PRN Administration PAIN 1-5 Umeclidinium/Vilanterol 1 inhalation 05/07/18 02:00 05/09/18 05:27 Anoro-Ellipta 62.5/25 Mcg Inh INH Not Given Q24H COUNTS INCLUDE 234 BEDS AT THE [facility] Vitamin B Complex/Vitamin C 1 tab 05/07/18 09:00 05/09/18 08:00 Allbee C PO 1 tab DAILY PAT Administration Objective Remarks: GENERAL: Appears well, unsteady gait. SKIN: Warm and dry. HEAD: Normocephalic. EYES: No scleral icterus. No injection or drainage. NECK: Supple, trachea midline. No JVD or lymphadenopathy. LYMPHATIC: No adenopathy. CARDIOVASCULAR: Regular rate and rhythm without murmurs. RESPIRATORY: Breath sounds equal bilaterally. No accessory muscle use. GASTROINTESTINAL: Abdomen soft, non-tender, nondistended. EXTREMITIES: No cyanosis, or edema. MUSCULOSKELETAL: Adequate muscle tone. NEUROLOGICAL: Unsteady gait and left field deficit. Strength excellent bilaterally PSYCHIATRIC: Appropriate mood and affect; insight and judgment normal. 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 Patient looks great. It is my understanding that she is going home today. Discharge discussed with her. She will be going home with Decadron, Keppra, and fluconazole as she has had problems with recurrent yeast infections. I will see her as an outpatient and taper her steroids. I will make arrangements for her to see radiation oncology as she will require, I believe, stereotactic radiotherapy to the remaining lesions. I am very grateful for the neurosurgical intervention which appears to have been very successful and done in a timely fashion. Situation discussed with her . Will as an outpatient order testing for EGFR, ALK etc to see if she has a targetable mutation.
[2018-05-09 10:38] VITALS: O2SAT 98
[2018-05-09 10:41] VITALS: BP 159/59; PULSE 92; RESP 19; TEMP 98.3
[2018-05-09] MEDS ORDERED: levETIRAcetam 500 MG Tablet PO SCH (21:00)
== END 2018-05-09 10:50 | disposition home or self-care (01) ==
LOC: NEPC 21:56 → NEDA 23:20 → N03 05-07 00:09
PROVIDERS: ADMIT Internal Medicine Critical Care Medicine; ATTEND Internal Medicine Critical Care Medicine